=== PATIENT | male | born 1945 | race Caucasian/White ===

== ENCOUNTER 2018-09-09 18:45 | Emergency (ER) | payer MEDICARE, OTHER, SELFPAY ==
[2018-09-09 18:46] VITALS: BP 135/91; PULSE 100; RESP 18; TEMP 36.4; O2SAT 95; BMI 26.1
--- NOTE | 2018-09-09 20:29 | ED.VIS.UPPEX ---
History of Present Illness Chief Complaint: Laceration Informant: Patient Occurred: Today - JPTA Mechanism/Context: Incised Context: Sudden Onset Timing: Continuous Quality of Pain: - - sore Current Severity: Mild Maximum Severity: Mild Worsened by: palpation Relieved by: leaving alone Associated Symptoms: Negative for: Parasthesia, Weakness, Loss of Funtion Narrative: Significant bleeding from his laceration that he accidentally cut with a piece of slicer. RHD. Tetanus Immunization: <5 years - Past Medical History (1) Hyperlipidemia Status: Chronic (2) Arthritis Status: Chronic (3) BPH (benign prostatic hyperplasia) Status: Chronic Past Medical History - Allergies and Home Meds Allergies/Adverse Reactions: Allergies No Known Allergies Allergy (Verified 09/09/18 18:46) Primary Care Physician: Nelson Rea MD [Primary Care Provider] - Smoking Status: Never smoker Review of Systems Musculoskeletal: Reports: Extremity Pain. Denies: Swelling Skin: Reports: Wounds. Denies: Rash Neurological: Denies: Weakness, Numbness Physical Exam Vital Signs/Narrative: Vital Signs Temp Pulse Resp BP Pulse Ox 09/09/18 18:46 97.5 F L 100 18 135/91 H 95 Inital Vital Signs reviewed: Yes Left Finger: - - 2cm laceration to dorsal thumb at IPJ, flap into SQ tissues. arteriolar bleeding, able to be controlled w/ direct pressure.. Negative for: Limited ROM General: Well nourished, Well developed Head: Normocephalic, Atraumatic Skin: Normal color, No rash, Trauma - lac to left thumb -- see above Neurological: Alert, Oriented x3, Cranial nerves II-XII grossly intact, Normal Strength, Normal Sensation, Normal Gait Psychological: Normal affect, Normal Mood Diagnostic/Tx/Re-eval - Medical Decision Making No imaging necessary, there is no foreign body. Arteriolar bleeding was controlled with direct pressure until I was able to perform the repair with a turnicot uneventfully. Follow-up with PCP in 10-14 days or come to ER for suture removal. Procedures - Lacerations left thumb Length: 2 cm Depth: Sub Q Shape: Flap - curvilinear Prep: Sterile Conditions, Chlorhexadine Laceration Repair: Lidocaine - 1% plain; local only. irrigated under pressure. wound explored; no tendon/bone visible. Irrigated (ml): 30 Number of Sutures/Sandy: 4 Suture Information: Simple, 4-0 Comment: tournaquot used for bloodless field for exploration and repair. no complications. tolerated well. ED Disposition - Plan for ED Patient: Disposition: Home or Assisted Living Diagnosis: Laceration of left thumb Instructions: ED Laceration Hand Referrals: Nelson Rea MD [Primary Care Provider] - 10-14 Days suture removal
[2018-09-09 20:43] VITALS: BP 135/91; PULSE 100; RESP 15; O2SAT 97
== END 2018-09-09 20:45 | disposition home or self-care (01) ==
PROVIDERS: Emergency Provider Emergency Medicine; Family Provider Internal Medicine; PCP Internal Medicine
DX: S61.012A Laceration without foreign body of left thumb without damage to nail, initial encounter (principal); W26.8XXA Contact with other sharp object(s), not elsewhere classified, initial encounter; Y93.9 Activity, unspecified; Y92.9 Unspecified place or not applicable; E78.5 Hyperlipidemia, unspecified; N40.0 Benign prostatic hyperplasia without lower urinary tract symptoms; M19.90 Unspecified osteoarthritis, unspecified site; Z79.899 Other long term (current) drug therapy
CPT/HCPCS: 12001; 99282

== ENCOUNTER 2021-02-28 15:15 | Emergency (ER) | payer MEDICARE, OTHER, SELFPAY ==
[2021-02-28 15:15] VITALS: BP 164/97; PULSE 106; RESP 16; TEMP 36.6; O2SAT 99; BMI 24.0
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
== END 2021-02-28 16:32 | disposition home or self-care (01) ==
PROVIDERS: Emergency Provider Emergency Medicine; PCP Internal Medicine
DX: S92.402A Displaced unspecified fracture of left great toe, initial encounter for closed fracture (principal); E78.5 Hyperlipidemia, unspecified; M19.90 Unspecified osteoarthritis, unspecified site; X58.XXXA Exposure to other specified factors, initial encounter; Z79.1 Long term (current) use of non-steroidal anti-inflammatories (NSAID); Z79.899 Other long term (current) drug therapy
CPT/HCPCS: 73630; 99283

== ENCOUNTER → 2024-02-15 | Outpatient (CLI) | payer MEDICARE, OTHER, SELFPAY ==
--- OUTSIDE RECORDS SUMMARY | 2024-02-15 19:54 | XMS RPT_ITS | CCD ---
Author Organization [facility] Care Team Providers Care Boat Builder Name Role Phone Álvaro GEIGER, Nelson Muro Primary Care Provider [phone] NELSON REA Referring Unavailable ÁLVARO, NELSON Muro Primary Care Unavailable Álvaro GEIGER, Nelson Muro Primary Care Provider [phone] Álvaro GEIGER, Nelson Muro Primary Care Provider [phone] LUPE FORTUNE Attending Unavailable LUPE FORTUNE Referring Unavailable ÁLVARO, NELSON Muro Primary Care Unavailable LUPE FORTUNE Attending Unavailable LUPE FORTUNE Referring Unavailable REA, NELSON Muro Primary Care Unavailable ROBERTO CARLOS GODWIN Attending Unavail able LUPE OFRTUNE Referring Unavailable REA, NELSON Muro Primary Care Unavailable LUPE FORTUNE Attending Unavailable LUPE FORTUNE Referring Unavailable REA, NELSON Muro Primary Care Unavailable VAISHALI NOVAK Attending Unavailable REA, NELSON Muro Primary Care Unavailable VAISHALI NOVAK Attending Unavailable ÁLVARO, NELSON Muro Primary Care Unavailable REA, NELSON Muro Referring Unavailable REA, NELSON Muro Primary Care Unavailable VAISHALI NOVAK Attending Unavailable ÁLVARO, NELSON Muro Primary Care Unavailable REA, LALA Referring Unavailable REA, NELSON Muro Primary Care Unavailable REA, NELSON Muro Attending Unavailable ÁLVARO, NELSON Muro Primary Care Unavailable VAISHALI NOVAK Referring Unavailable REA, NELSON Muro Primary Care Unavailable KIMBERLEY HAWLEY Attending Unavailable REA, NELSON Muro Primary Care Unavailable KIMBERLEY HAWLEY Referring Unavailable REA, LALA Primary Care Unavailable VAISHALI NOVAK Attending Unavailable ÁLVARO, NELSON Muro Primary Care Unavailable Allergies Allergy Classification Reported Allergen(s) Allergy Type Date of Onset Reaction(s) Facility (20 sources) Environmental allergies [Other] Propensity to adverse reactions 9 [facility] (3 sources) OTHER; Translations: [OTHER] Propensity to adverse reactions (disorder) 9 [facility] Other [place] [facility] (2 sources) House dust mite; Translations: [DUST MITES] Propensity to adverse reactions (disorder) 4 [facility] Medications Current Medications Medication Drug Class(es) Dates Sig (Normalized) Sig (Original) alendronic acid 70 mg oral tablet (19 sources) Bisphosphonate Start: 02-19-2023 take 1 tablet by mouth every week alendronate (FOSAMAX) 70 mg tablet Indications: Age related osteoporosis, unspecified pathological fracture presence Take 1 tablet by mouth one time a week. Take with a full glass of water, on an empty stomach; do NOT lie down for 30minutes. 12 tablet 3 02/19/2023 Active Comment on above: Take 1 tablet by jayla th one time a week. Take with a full glass of water, on an empty stomach; do NOT lie down for 30minutes. ascorbic acid 1000 mg oral tablet (20 sources) Vitamin C Start: 02-17-2011 take 1 tablet by mouth once daily Ascorbic Acid 1,000 mg tablet Take 1 tablet by mouth once daily. 0 02/17/2011 Active Comment on above: Take 1 tablet by jayla th once daily. atorvastatin 20 mg oral tablet (20 sources) HMG-CoA Reductase Inhibitor Start: 06-22-2023 take 1 tablet by mouth once daily at bedtime for hyperlipidemia atorvastatin (LIPITOR) 20 mg tablet Indications: Dyslipidemia Take 1 tablet by mouth daily at bedtime. For cholesterol. 90 tablet 3 06/22/2023 Active Start: 06-09-2021 End: 06-19-2023 take 1 tablet by mouth once daily at bedtime for hyperlipidemia atorvastatin (LIPITOR) 20 mg tablet Indications: Dyslipidemia Take 1 tablet by mouth daily at bedtime. For cholesterol. 90 tablet 3 05/19/2022 06/19/2023 Discontinued Comment on above: Take 1 tablet by jayla th daily at bedtime. For cholesterol. celecoxib 200 mg oral capsule (20 sources) Nonsteroidal Anti-inflammatory Drug Start: 4 End: take 1 capsule by mouth once daily celecoxib (CELEBREX) 200 mg capsule Indications: Degeneration of intervertebral disc of lumbosacral region Take 1 capsule by mouth once daily. 30 capsule 3 09/08/2023 Active Start: 11-08-2022 End: 01-30-2023 take 1 capsule by mouth once daily celecoxib (CELEBREX) 200 mg capsule Indications: Chronic bilateral low back pain with bilateral sciatica Take 1 capsule by mouth once daily. 30 capsule 2 01/31/2023 Active Start: 10-23-2015 End: 11-06-2022 take 1 capsule by mouth once daily celecoxib (CELEBREX) 200 mg capsule Indications: Chronic bilateral low back pain with bilateral sciatica Take 1 capsule by mouth once daily. 30 capsule 0 10/07/2022 11/06/2022 Active Comment on above: Take 1 capsule by mo ut once daily. gabapentin 300 mg oral capsule (20 sources) Anti-epileptic Agent Start: 3 End: 5 take 1 capsule by mouth twice daily gabapentin (NEURONTIN) 300 mg capsule Indications: Degeneration of intervertebral disc of lumbosacral region Take 1 capsule by mouth two times a day for 120 days. 60 capsule 3 09/08/2023 Active Start: 05-23-2019 End: 06-15-2022 take 1 capsule by mouth three times daily gabapentin (NEURONTIN) 300 mg capsule Indications: Chronic bilateral low back pain with bilateral sciatica Take 1 capsule by mouth three times daily for 120 days. 90 capsule 3 01/04/2022 06/15/2022 Discontinued Comment on above: Take 1 capsule by mo ut twice daily. Per Pain Management Take 1 capsule by mo ut three times daily for 120 days. Take 1 capsule by mo ut twice daily. Take 1 capsule by mo ut two times a day. latanoprost 0.05 mg/ml ophthalmic solution (20 sources) Prostaglandin Analog take 1 drop(s) into the eye(s) once daily at bedtime latanoprost, PF, 0.005 % drop Use 1 Drop in eyes daily at bedtime. Active latanoprost, PF, 0.005 % drop Use in eyes. 0 Active Comment on above: Use in eyes. Use 1 Drop in eyes d aily at bedtime. losartan potassium 50 mg oral tablet (20 sources) Angiotensin 2 Receptor Sherin Start: 4 End: 4 take 1 tablet by mouth once daily losartan (COZAAR) 50 mg tablet Indications: Primary hypertension Take 1 tablet by mouth once daily. 90 tablet 1 10/31/2023 Active Start: 02-14-2023 End: 10-17-2023 take 1 tablet by mouth once daily losartan (COZAAR) 25 mg tablet Indications: Primary hypertension Take 1 tablet by mouth once daily. 90 tablet 3 02/14/2023 10/17/2023 Discontinued Comment on above: Take 1 tablet by jayla once daily. melatonin 10 mg oral capsule (20 sources) take 1 capsule by mouth every twenty-four hours as needed melatonin 10 mg cap Take 1 capsule by mouth at bedtime as needed. Active Comment on above: Take 1 capsule by mo [facility] at bedtime as needed. omeprazole 20 mg delayed release oral tablet (20 sources) Proton Pump Inhibitor Start: 06-05-19 take 1 tablet by mouth once daily at bedtime Omeprazole Magnesium (PRILOSEC OTC) 20 mg tablet Indications: Gastroesophageal reflux disease, unspecified whether esophagitis present Take 1 tablet by mouth daily at bedtime. 1/2 hr before meal. 06/05/2020 Active Comment on above: Take 1 tablet by jayla daily at bedtime. 1/2 hr before meal. tamsulosin hydrochloride 0.4 mg oral capsule (20 sources) alpha-Adrenergic Sherin Start: 01-01-20 take 1 capsule by mouth once daily tamsulosin (FLOMAX) 0.4 mg Take 1 capsule by mouth once daily. 90 capsule 3 01/01/2024 Active Start: 01-19-2021 End: 12-27-2023 take 1 capsule by mouth once daily tamsulosin (FLOMAX) 0.4 mg take 1 capsule by mouth once daily 90 capsule 3 12/28/2021 01/17/2023 Discontinued Comment on above: Take 1 capsule by mo [facility] once daily. take 1 capsule by mo [facility] once daily tiZANidine 4 mg oral tablet (20 sources) Central alpha-2 Adrenergic Agonist Start: End: take 1 tablet by mouth every eight hours as needed tiZANidine (ZANAFLEX) 4 mg tablet Indications: Degeneration of intervertebral disc of lumbosacral region Take 1 tablet by mouth every 8 hours as needed. 90 tablet 3 07/19/2023 Active Start: 04-25-2019 End: 05-16-2022 tiZANidine (ZANAFLEX) 4 mg t ablet tizanidine 4 mg tablet 0 04/25/2019 05/16/2022 Discontinued (Changing Therapy/Dosage Form) Comment on above: tizanidine 4 mg tabl et Take 1 tablet by jayla th every 8 hours as needed. Completed/Discontinued Medications Medication Drug Class(es) Dates Sig (Normalized) Sig (Original) 250 ml DOBUTamine 4 mg/ml injection (9 sources) beta-Adrenergic Agonist Start: 05-31-2022 End: 08-17-2022 DOBUTamine iv infusion 1,000 mg in D5W 250 mL (DOBUTREX) lisinopril 10 mg oral tablet (20 sources) Angiotensin Converting Enzyme Inhibitor Start: 06-15-2022 End: 02-14-2023 take 1 tablet by mouth once daily lisinopril (ZESTRIL) 10 mg tablet Take 1 tablet by mouth once daily. 90 tablet 1 08/12/2022 02/14/2023 Discontinued (Clinical Decision) Comment on above: Take 1 tablet by jayla th once daily. methocarbamol 750 mg oral tablet (20 sources) Muscle Relaxant Start: 11-04-2021 End: 09-13-2022 take 1 tablet by mouth three times daily as needed methocarbamol (ROBAXIN-750) 750 mg tablet Take 1 tablet by mouth three times daily as needed. 90 tablet 3 05/16/2022 08/15/2022 Discontinued Start: 06-09-2021 End: 11-04-2021 take 1 tablet by mouth three times daily methocarbamol (ROBAXIN) 500 mg tablet Indications: Cauda equina syndrome with neurogenic bladder (HCC) Take 1 tablet by mouth three times daily. 0 06/09/2021 11/04/2021 Discontinued Comment on above: Take 1 tablet by jayla th three times daily. Take 1 tablet by jayla th three times daily as needed. perflutren lipid microspheres 1.3 mL in NaCl (PF) 0.9% 10 mL injection (DEFINITY) (13 sources) Start: 05-19-2022 End: 08-17-2022 perflutren lipid microspheres 1.3 mL in NaCl (PF) 0.9% 10 mL injection (DEFINITY) Start: 05-19-2022 End: 08-18-2023 perflutren lipid microsphere s 1.3 mL in NaCl (PF) 0.9% 10 mL injection (DEFINITY) 125 ml sodium chloride 9 mg/ ml prefilled syringe (13 sources) Start: 05-19-2022 End: 08-18-2023 sodium chloride 0.9 % (flush ) 10 mL (BD POSIFLUSH) Problems Active Problems Problem Classification Problem Date Documented Date Episodic/Chronic Cardiac dysrhythmias (1 source) Tachycardia; Translations: [Tachycardia, unspecified] Episodic Disorders of lipid metabolism (20 sources) Dyslipidemia; Translations: [Hyperlipidemia, unspecified] Onset: 05-23-2018 05-23-2018 Chronic Esophageal disorders (20 sources) Gastroesophageal reflux disease; Translations: [Gastro-esophageal reflux disease without esophagitis] Onset: 06-05-2020 06-05-2020 Chronic Essential hypertension (20 sources) Essential hypertension; Translations: [Essential (primary) hypertension] Onset: 06-15-2022 Chronic Glaucoma (1 source) Elevated right intraocular pressure; Translations: [Ocular hypertension, right eye] Chronic Heart valve disorders (20 sources) Aortic incompetence, non-rheumatic ; Translations: [Nonrheumatic aortic (valve) insufficiency] Onset: 06-02-2022 06-02-2022 Chronic Hyperplasia of prostate (20 sources) Benign prostatic hypertrophy with outflow obstruction; Translations: [Benign prostatic hyperplasia with lower urinary tract symptoms] Onset: 09-20-2007 10-23-2015 Chronic Osteoarthritis (20 sources) Arthritis; Translations: [Unspecified osteoarthritis, unspecified site] Onset: 09-21-2021 09-21-2021 Chronic Osteoporosis (20 sources) Osteoporosis; Translations: [Age-related osteoporosis without current pathological fracture] Onset: 04-25-2019 09-21-2021 Chronic Other and ill-defined heart disease (3 sources) Left ventricular hypertrophy; Translations: [Cardiomegaly] Chronic Other and ill-defined heart disease (1 source) Cardiomegaly; Translations: [LVH (left ventricular hypertrophy)] Onset: 05-31-2022 Chronic Other lower respiratory disease (3 sources) Dyspnea on exertion; Translations: [Other forms of dyspnea] Episodic Other lower respiratory disease (1 source) Other forms of dyspnea; Translations: [ASHFORD (dyspnea on exertion)] Onset: 05-31-2022 Episodic Other upper respiratory disease (20 sources) Allergic rhinitis; Translations: [Allergic rhinitis, unspecified] Onset: 03-07-2012 03-07-2012 Chronic Residual codes; unclassified (1 source) Sleep apnea; Translations: [Sleep apnea, unspecified] 01-16-2024 Chronic Residual codes; unclassified (1 source) Sleep apnea, unspecified; Translations: [Sleep apnea, unspecified type] Onset: 01-25-2024 Chronic Spondylosis; intervertebral disc disorders; other back problems (20 sources) Degeneration of lumbosacral intervertebral disc; Translations: [Other intervertebral disc degeneration, lumbosacral region] Onset: 04-25-2019 09-21-2021 Chronic Unclassified (1 source) Degeneration of intervertebral disc of lumbosacral region with discogenic back pain; Translations: [Degeneration of intervertebral disc of lumbosacral region with discogenic back pain] Onset: 11-08-2021 Past or Other Problems Problem Classification Problem Date Documented Da te Episodic/Chronic Allergic reactions (15 sources) Radiation-induced dermatosis; Translations: [Other skin changes due to chronic exposure to nonionizing radiation] Onset: 12-31-2007 Resolved: 11-30-2016 11-30-2016 Episodic Diabetes mellitus without complication (20 sources) Impaired fasting glycemia; Translations: [Impaired fasting glucose] Onset: 05-23-2019 05-23-2019 Episodic Genitourinary symptoms and ill-defined conditions (15 sources) Retention of urine; Translations: [Retention of urine, unspecified] Onset: 02-17-2011 Resolved: 11-30-2016 11-30-2016 Episodic Neoplasms of unspecified nature or uncertain behavior (15 sources) Neoplasm of uncertain behavior of skin; Translations: [Neoplasm of uncertain behavior of skin] Onset: 12-31-2007 Resolved: 03-08-2012 03-08-2012 Episodic Other aftercare (20 sources) Long-term current use of drug therapy; Translations: [Other mcc (current) drug therapy] Onset: 05-06-2019 09-21-2021 Episodic Other and unspecified benign neoplasm (15 sources) Benign neoplasm of skin of face; Translations: [Other benign neoplasm of skin of unspecified part of face] Onset: 12-31-2007 Resolved: 11-30-2016 11-30-2016 Episodic Other circulatory disease (20 sources) Elevated blood pressure; Translations: [Elevated blood-pressure reading, without diagnosis of hypertension] Onset: 02-08-2018 05-23-2019 Episodic Other diseases of bladder and urethra (15 sources) Bladder neck obstruction; Translations: [Bladder-neck obstruction] Onset: 09-20-2007 Resolved: 03-08-2012 03-08-2012 Chronic Other diseases of kidney and ureters (1 source) Other obstructive and reflux uropathy; Translations: [BPH with obstruction/lower urinary tract symptoms] Onset: 10-23-2015 Episodic Other diseases of veins and lymphatics (15 sources) Varicocele; Translations: [Scrotal varices] Onset: 09-11-2008 Resolved: 03-08-2012 03-08-2012 Episodic Other fractures (20 sources) Fracture of lumbar spine and/or pelvis; Translations: [Fracture of unspecified parts of lumbosacral spine and pelvis, initial encounter for closed fracture] Onset: 04-25-2019 09-21-2021 Episodic Other fractures (20 sources) Closed fracture lumbar vertebra, wedge ; Translations: [Wedge compression fracture of second lumbar vertebra, initial encounter for closed fracture] Onset: 04-25-2019 09-21-2021 Episodic Other fractures (1 source) Fracture of unspecified parts of lumbosacral spine and pelvis, initial encounter for closed fracture; Translations: [Fracture of unspecified parts of lumbosacral spine and pelvis, initial encounter for closed fracture (HCC)] Onset: 11-08-2021 Episodic Other fractures (2 sources) Wedge compression fracture of second lumbar vertebra, initial encounter for closed fracture; Translations: [Wedge compression fracture of second lumbar vertebra, initial encounter for closed fracture (HCC)] Onset: 11-08-2021 Episodic Other injuries and conditions due to external causes (20 sources) History of spinal cord injury; Translations: [Personal history of other (healed) physical injury and trauma] Onset: 10-22-2014 10-22-2014 Episodic Other lower respiratory disease (20 sources) Chronic cough; Translations: [Chronic cough] Onset: 02-14-2023 02-14-2023 Episodic Other screening for suspected conditions (not mental disorders or infectious disease) (20 sources) Raised prostate specific antigen; Translations: [Elevated prostate specific antigen [PSA]] Onset: 05-23-2019 05-23-2019 Episodic Other skin disorders (20 sources) Actinic keratosis; Translations: [Actinic keratosis] Onset: 06-09-2021 06-09-2021 Episodic Paralysis (20 sources) Cauda equina syndrome with cord bladder; Translations: [Cauda equina syndrome] Onset: 03-19-2007 Resolved: 08-17-2022 03-19-2007 Chronic Spondylosis; intervertebral disc disorders; other back problems (20 sources) Chronic back pain ; Translations: [Dorsalgia, unspecified] Onset: 03-08-2012 04-19-2021 Episodic Results Test Name Value Interpretation Reference Range Facility [facility] 02-09-2024 CNPN Telephone (INTMWS) TULIO,MARTY Ceballos ([id number]) 1945 M Date Time Provider Department 02/09/24 NELSON REASHAWNEE During your visit today, we recorded the following information about you: Karma Hernandez LPN 02/09/2024 8:25 AM Signed ----- Message from Vaishali Novak APRN.DOMINGA sent at 02/09/2024 6:21 AM EDT ----- Please let the patient know the home sleep study indicated sleep apnea but the specialist recommends in lab sleep study for further evaluation CHRIS Sellers Laurie Lynn, LPN 02/09/2024 8:26 AM Signed Before calling pt, please put in orders for the sleep study. MINI Christianson Naz M, APRN.CNP 02/09/2024 9:13 AM Signed He may want it done locally at [facility], will wait to put orders in for this reason Vaishali Novak APRN.Mikel Camarena MA 02/09/2024 9:41 AM Signed Left message to call office. 02/09/2024 9:41 AM Terri Parkinson RN 02/12/2024 11:23 AM Signed Patient states yes, he would like sleep study done locally at [facility]. Please place order and send to [facility]. Thank you. Meagan Mcleod LPN 02/12/2024 4:34 PM Signed Sleep study order and pertinent information faxed to [facility] per pt request. Meagan Mcleod LPN Allergies As of Date: 02/09/2024 Noted Allergy Reaction DUST MITES 07/19/2023 16 - Unknown Comments: Also cockroaches. Date Reviewed: 01/30/2024 Reviewed by: Lupe Fortune PA-C - Fully Assessed Prescriptions as of 02/12/2024 - tamsulosin (FLOMAX) 0.4 mg Take 1 capsule by mouth once daily. - losartan (COZAAR) 50 mg tablet Take 1 tablet by mouth once daily. - celecoxib (CELEBREX) 200 mg capsule Take 1 capsule by mouth once daily. - gabapentin (NEURONTIN) 300 mg capsule Take 1 capsule by mouth two times a day for 120 days. - tiZANidine (ZANAFLEX) 4 mg tablet Take 1 tablet by mouth every 8 hours as needed. - atorvastatin (LIPITOR) 20 mg tablet Take 1 tablet by mouth daily at bedtime. For cholesterol. - alendronate (FOSAMAX) 70 mg tablet Take 1 tablet by mouth one time a week. Take with a full glass of water, on an empty stomach; do NOT lie down for 30minutes. - latanoprost, PF, 0.005 % drop Use 1 Drop in eyes daily at bedtime. - Omeprazole Magnesium (PRILOSEC OTC) 20 mg tablet Take 1 tablet by mouth daily at bedtime. 1/2 hr before meal. - melatonin 10 mg cap Take 1 capsule by mouth at bedtime as needed. - Ascorbic Acid 1,000 mg tablet Take 1 tablet by mouth once daily. 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] 09/11/2008 03/08/2012 Urinary retention [R33.9] 02/17/2011 11/30/2016 Allergic rhinitis [J30.9] 03/07/2012 Chronic back pain [M54.9, G89.29] 03/08/2012 History of spinal cord injury, lumbar, left leg*10/22/2014 Dyslipidemia [E78.5] 05/23/2018 Impaired fasting glucose [R73.01] 05/23/2019 Elevated PSA [R97.20] 05/23/2019 Gastroesophageal reflux disease [K21.9] 06/05/2020 Actinic keratosis due to exposure to sunlight [*06/09/2021 Degeneration of intervertebral disc of lumbosac*04/25/2019 Pelvic Fracture NOS - closed - [facility] [S32.9XXA] 04/25/2019 Osteoporosis [M81.0] 04/25/2019 Other mcc (current) drug therapy [Z79.899]05/06/2019 Fracture lumbar vertebra - closed - [facility] [S32.02*04/25/2019 Hyperlipidemia [E78.5] 09/21/2021 Arthritis [M19.90] 09/21/2021 Nonrheumatic aortic valve insufficiency [I35.1] 06/02/2022 Primary hypertension [I10] 06/15/2022 Chronic cough [R05.3] 02/14/2023 Encounter Status:Closed by MEAGAN MCLEOD on 02/12/24 Normal [facility] CNOVon 01-30-2024 CNOV Office Visit (PAMMJK ) MARTY ANTUNEZ ([id number]) 1945 M Date Time Provider Department 01/30/24 10:00 AM LUPE FORTUNE During your visit today, we recorded the following information about you: Pulse Respiration Blood pressure 79/minute 16/minute 154/80 Lupe Fortune PA-C 01/30/2024 10:17 AM Signed This note was created using Gema Touch. Subjective Marty Antunez is a 78 year old male. The patient primarily being seen for back pain - [facility] Patient was last seen on: 10/23/23 At that time, the treatment plan was: see notes Current Meds: gabapentin - two nights ago, celebrex - yesterday, tizanidine - prn Efficacy: help Side effects: denies TENS unit: didn't help How often used: Benefit: Physical Therapy: years ago, exercises at home on his own Last UDS: not on narcotics Last injection: OARRS reviewed At the present time, the patient reports benefit with his present analgesic therapy. He denies any adverse effects. Since his previous visit, he denies any hospitalizations or ER visits. Otherwise, he has nothing further to discuss at this time. 01/23/2024 01/30/2024 INTAKE PAIN ASSESSMENT Are you having pain associated with your visit today? No Yes, Provider notified Pain Scales Verbal (Numeric Rating or Visual Analog Scale) Pain Level 3 Pain Location Back Description Aching Duration Amount of Time 44 Duration Units Years Frequency Continuous Intervention/Comfort measure Heat;Medication;Positioning Back Pain Pertinent negatives include no fever. 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 Spinal cord injury 08/16/1979 Fall at work, left leg atrophy Urinary retention 02/17/2011 PAST SURGICAL HISTORY Procedure Laterality Date COLONOSCOPY FLX DX W/COLLJ SPEC WHEN PFRMD 11/2003 Colonoscopy COLONOSCOPY FLX DX W/COLLJ SPEC WHEN PFRMD 02/23/2012 Colonoscopy COLONOSCOPY FLX DX W/COLLJ SPEC WHEN PFRMD 05/04/2018 Colonoscopy NEUROPLASTY AND/TRANSPOS MEDIAN NRV CARPAL TUNNE 2009 Carpal tunnel decomp, LEFT NEUROPLASTY AND/TRANSPOSITION ULNAR NERVE WRIST 2009 LEFT OPEN REPAIR OF ROTATOR CUFF ACUTE 1992 Rotator cuff repair, LEFT TONSILLECTOMY AND ADENOIDECTOMY Social History Tobacco Use Smoking status: Never Smokeless tobacco: Never Vaping Use Vaping status: Never Used Substance Use Topics Alcohol use: Yes Comment: Socially Drug use: Never Review of Systems Constitutional: Negative for fever and unexpected weight change. Musculoskeletal: Positive for back pain. +back pain, joint pain, numbness, tingling, muscle cramps/weakness, stiffness, arthritis, sciatica, and leg pain with exertion. Objective BP 154/80 (BP Site: Left Arm, BP Position: Sitting) Pulse 79 Resp 16 SpO2 99% Physical Exam Vitals and nursing note reviewed. Constitutional: Appearance: Normal appearance. He is well-developed, well-groomed and normal weight. HENT: Head: Normocephalic and atraumatic. Right Ear: Hearing normal. Left Ear: Hearing normal. Eyes: Conjunctiva/sclera: Conjunctivae normal. Musculoskeletal: Comments: He is using his cane for assistance with his gait. There is tenderness to palpation in the lumbar region with spasms in the trapezius, paraspinal, and latissimus dorsi muscles. Strength is 4-5/5 in the LLE. He has atrophy noted in the LLE. Sensation is decreased in the lateral LLE, worse around the proximal lateral thigh. SLR is negative. He has a brace present on the left ankle. Neurological: Mental Status: He is alert and oriented to person, place, and time. Psychiatric: Attention and Perception: Attention and perception normal. Mood and Affect: Mood and affect normal. Speech: Speech normal. Behavior: Behavior normal. Behavior is cooperative. Thought Content: Thought content normal. Judgment: Judgment normal. Assessment and Plan ASSESSMENT/PLAN: 1. Degeneration of intervertebral disc of lumbosacral region with discogenic back pain - ICD9: 722.52, ICD10: M51.370 (primary diagnosis) 2. Pelvic Fracture NOS - closed - [facility] - ICD9: [id number], ICD10: S32.9XXA 3. Fracture lumbar vertebra - closed - [facility] - ICD9: 805.4, ICD10: S32.020A PLAN: The OARRS report has been reviewed and is consistent with the patients medical history and medication intake. Continue with the gabapentin, celecoxib, and tizandine Continue with core strengthening and range o (more content not included)... Normal [facility] POLYSOMNOGRAM (PSG)/HOME SLE EP APNEA TEST (HSAT)on 01-27-2024 POLYSOMNOGRAM (PSG)/HOME SLEEP APNEA TEST (HSAT) [facility] at [address], [address] [address] ; Home Sleep Apnea Test (HSAT) Study Report Name: MARTY ANTUNEZ Date of Study: 01/27/2024 [facility]#: [id number] Age: 78 (: 1945) ESS: 06/17 Neck Circ. (cm): 37.0 Height (cm): 172.0 Weight (kg): 70.0 BMI: 23.7 Referring Provider: VAISHALI NOVAK Mailcode: Sleep history: The patient is a 78 year old male with a history of hypertension. The patient is here for assessment of obstructive sleep apnea. Pertinent medical history: Depression, GERD, Hypertension Medications: Alendronate, Atorvastatin, Celecoxib, Tamsulosin, Tizanidine, Losartan, Omeprazole, Melatonin Sleep procedure: PSG unattended Type III, minimum of 4 parameters ([id number]) Procedure: This study was performed using a Type III ambulatory PSG device and was unattended. The patient was instructed on proper use of the device by a registered dairy manufacturing technologist. The monitored parameters included heart rate, oxygen saturation, continuous airflow with thermistor and nasal pressure transducer, snoring via nasal pressure transducer, chest and abdominal effort, and body position. VIKTORIA definition: Respiratory event index (VIKTORIA), calculated as respiratory events x 60 / TRT (total recording time in minutes). Note: the apnea hypopnea index has been replaced by the respiratory event index for home sleep apnea test. Since the home sleep apnea test does not measure sleep, the VIKTORIA is most accurate index of respiratory events. The VIKTORIA is a surrogate of the AHI per the AASM Manual for Scoring of Sleep and Associated Events version 3. Apnea definition: The peak signal excursions drop by >90% of pre-event baseline using an oronasal thermal sensor (diagnostic study), PAP device flow (titration study) or an alternative apnea sensor (diagnostic study). The duration of the >90% drop in signal excursion is >=10 seconds. Hypopnea definition: The peak signal excursions drop by >= 30% of pre-event baseline using nasal pressure (diagnostic study), PAP device flow (titration study) or an alternative hypopnea sensor (diagnostic study). The duration of the >= 30% drop in signal excursion is >=10 seconds. There is a greater than or equal to 4% oxygen desaturation from pre-event baseline. RESPIRATORY DATA: The study started at 00:38:57 and ended at 07:58:30 and the total recording time was 439 minutes. By convention, sleep is assumed for the whole recording. Snoring was noted. There was a total of 26 respiratory events. Of these events, the total number of apneas was 3 (2 obstructive, 0 mixed, and 1 central (3.8%)) and 23 hypopneas. The central apnea index (DRAKE) was 0.1. The respiratory event index (VIKTORIA) was 3.5 events per hour of study time. The mean oxygen saturation during the study was 94.0%, with a minimum oxygen saturation of 83.0%. The patient spent 18.0 minutes at oxygen saturation measured less than 90% (4.1% of recording time) and 10.7 minutes at oxygen saturation measured at or less than 88% (2.4% of recording time). Time VIKTORIA/AHI Supine 150.5 min 5.6 Off-Supine 289.0 min 2.5 Total 439.5 min 3.5 ECG DATA: The average heart rate was 66 bpm with a range of 58 bpm to 97 bpm. ICSD DIAGNOSIS: Primary Snoring [R06.83] Sleep Disorder, Unspecified [G47.9] IMPRESSION/RECOMMENDATIONS: 1. This study neither confirms nor refutes a diagnosis of obstructive sleep apnea as HSAT does not measure certain types of respiratory events that can only be measured on an in-laboratory polysomnogram. Of note, VIKTORIA was in mild range when supine. 2. Recommend an in-laboratory polysomnogram. INTERPRETING PHYSICIAN: Kacey Ulloa MD [facility] I attest that I have performed epoch by epoch review of the entire raw data and find this study to be technically adequate. Report Digitally Signed By: KACEY ULLOA MD (02/08/2024 2:50:50 PM) [INVALID SIGNATURE] KACEY ULLOA MD (02/08/2024 2:51:16 PM) Normal [facility] CNOVon 01-23-2024 CNOV Office Visit (UROLWS ) MARTY ANTUNEZ ([id number]) 1945 M Date Time Provider Department 01/23/24 10:30 AM KIMBERLEY HAWLEY UROLWS During your visit today, we recorded the following information about you: Temperature Pulse Respiration Blood pressure 98.1 degrees 86/minute 14/minute 144/76 Weight 71.7 kg Zac JessicaMINI le 01/23/2024 11:27 AM Signed Verified name and date of . CC Post Void Residual HPI: Marty Antunez is a 78 year old male. The patient is here now for an appointment with MARIANO Lopez MT, PA-COV. Procedure: Explained procedure to patient and verbalizes understanding. Performed a PVR. Patient urinated and instructed to empty bladder as much as possible just prior to having PVR done using bladder ultrasound scanner. Results of scan: 43 mL The patient tolerated the procedure well. Plan: Appointment with Kimberley. Kimberley Hawley PA-C 01/23/2024 11:27 AM Signed [facility] ESTABLISHED PATIENT CLINIC NOTE Some elements copied from his previous note, which have been updated where appropriate, and all reflect current medical decision making from date of this visit. NAME: Marty Antunez CHIEF COMPLAINT: BPH PSA Follow up HISTORY OF PRESENT ILLNESS: Marty Antunez is a 78 year old Male with BPH w/LUTS presenting for annual follow up The patient reports doing well , PVR- 43 ml PSA -3.01 mild increase only Overall doing well no new Co's LABS: Hematocrit (%) Date Value 07/17/2023 38.7 06/17/2022 38.8 06/15/2021 43.1 12/02/2016 44.4 10/22/2013 43.8 PSA (ng/mL) Date Value 01/18/2024 3.01 01/11/2023 2.53 01/14/2022 2.58 01/19/2021 2.69 04/04/2020 2.54 04/04/2019 2.82 01/02/2014 1.93 No results found for: TESTOST MEDICATIONS: tamsulosin (FLOMAX) 0.4 mg Take 1 capsule by mouth once daily. losartan (COZAAR) 50 mg tablet Take 1 tablet by mouth once daily. celecoxib (CELEBREX) 200 mg capsule Take 1 capsule by mouth once daily. gabapentin (NEURONTIN) 300 mg capsule Take 1 capsule by mouth two times a day for 120 days. tiZANidine (ZANAFLEX) 4 mg tablet Take 1 tablet by mouth every 8 hours as needed. atorvastatin (LIPITOR) 20 mg tablet Take 1 tablet by mouth daily at bedtime. For cholesterol. alendronate (FOSAMAX) 70 mg tablet Take 1 tablet by mouth one time a week. Take with a full glass of water, on an empty stomach; do NOT lie down for 30minutes. latanoprost, PF, 0.005 % drop Use 1 Drop in eyes daily at bedtime. Omeprazole Magnesium (PRILOSEC OTC) 20 mg tablet Take 1 tablet by mouth daily at bedtime. 1/2 hr before meal. melatonin 10 mg cap Take 1 capsule by mouth at bedtime as needed. Ascorbic Acid 1,000 mg tablet Take 1 tablet by mouth once daily. PAST MEDICAL HISTORY: PAST MEDICAL HISTORY Diagnosis Date BPH with obstruction/lower urinary tract symptoms 09/20/2007 Chronic back pain 03/08/2012 DDD (degenerative disc disease), lumbar Depression Diverticulosis of colon (without mention of hemorrhage) History of multiple trauma 08/16/1979 work related, [facility] History of spinal cord injury, lumbar, left leg atrophy and paresis. 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 All other systems reviewed and are negative PHYSICAL EXAMINATION: Blood pressure 144/76, pulse 86, temperature 36.7 ?C (98.1 ?F), temperature source Temporal, resp. rate 14, weight 71.7 kg (158 lb), SpO2 98%. GENERAL: WNL nutrition, no deformities, healthy appearing PROBLEM LIST REVIEW: Yes LABS: Results for orders placed or performed in visit on 01/23/24 UA DIP, URINE (POC) Result Value Ref Range GLUCOSE UA (POCT) Negative Negative mg/dL BILIRUBIN UA (POCT) Negative Negative KETONE UA (POCT) Negative Negative mg/dL SPECIFIC GRAVITY UA (POCT) 1.020 1.005 - 1.030 HEMOGLOBIN/BLOOD UA (POCT) Negative Negative PH UA (POCT) 6.5 4.5 - 8.0 PROTEIN UA (POCT) Negative Negative mg/dL UROBILINOGEN UA (POCT) 0.2 Normal E.U./dL NITRITE UA (POCT) Negative Negative LEUKOCYTES UA (POCT) Negative Negative COLOR UA (POCT) Yellow CLARITY UA (POCT) Clear PVR 43 ml IMPRESSION/PLAN: 1. BPH with obstruction/lower urinary tract symptoms - ICD9: 600.01, 599.69, ICD10: N40.1, N13.8 > Refilled Flomax > PSA - 3.01 > 1 year Appt w/ BMARIANO Chan MT, PA-C with PSA prior Kimberley Hawley PA-C 01/23/2024 11:27 AM Signed > Flomax sent 01/01/2024 > PSA was 3.01 > PVR - 43 ml > 1 year Appt w/ BMARIANO Chan MT, PA-C with PSA prior Allergies As of Date: 01/23/2024 Noted Allergy Reactio (more content not included)... Normal [facility] UA DIP, URINE (POC)on 2023 BILIRUBIN UA (POCT) Negative Negative [facility] CLARITY UA (POCT) Clear [facility] COLOR UA (POCT) Yellow [facility] GLUCOSE UA (POCT) Negative Negative mg/dL [facility] Hemoglobin Ql (U) Negative Negative [facility] KETONE UA (POCT) Negative Negative mg/dL [facility] LEUKOCYTES UA (POCT) Negative Negative [facility] NITRITE UA (POCT) Negative Negative [facility] PH UA (POCT) 6.5 4.5 - 8.0 [facility] Protein Ql (U) Negative Negative mg/dL [facility] SPECIFIC GRAVITY UA (POCT) 1.020 1.005 - 1.030 [facility] UROBILINOGEN UA (POCT) 0.2 Normal E.U./dL [facility] Location:[facility], [address], [place], [place], [id number] [place] [address] POINT OF CARE [facility] Prostate specific Ag [Mass/Vol] 3.01 ng/mL High <2.60 [facility] Comment on above: Order Comment: Speci men Type: BLOOD SPECIMENOrdering Facility: [facility] Address: [address] [place] [address] Result Comment: Tota l PSA test methodology used is the Electrochemiluminescence Immunoassay by [employer]. Total PSA values by differing methodologies cannot be interchanged. For an individual patient, the significance of a PSA level should be interpreted in a broad clinical context, including age, race, family history, digital rectal exam, prostate size, results of prior testing (prostate biopsy, free PSA, PCA3), and use of 5-alpha reductase inhibitors. Considering the high incidence of asymptomatic cancer in the general population that may not pose an ultimate risk to a patient, the decision to recommend urological evaluation or prostate biopsy should be individualized after consideration of all these factors. REFERENCE: Sabas Wilson M.D., M.P.H., Irwin Marte M.D., Ph.D., Dorian Castañeda M.D., Jessica Adan, M.P.H., Fiorella Carreno Sc.Ronda. Effect of Verification Bias on Screening for Prostate Cancer by Measurement of Prostatic Specific Antigen. N Engl J Med 2003,349:335-42. Performed By: #### 2 [id number] ####[facility] [id number] [place] [address] [place] CNOVon 01-16-2024 CNOV Office Visit (INTMWS ) MARTY ANTUNEZ ([id number]) 1945 M Date Time Provider Department 01/16/24 10:40 AM VAISHALI NOVAK INTMWS During your visit today, we recorded the following information about you: Pulse Respiration Blood pressure Weight 79/minute 18/minute 136/82 72 kg Vaishali Novak, ELECTROENCEPHALOGRAPH TECHNICIAN.GENERAL FARM HAND 01/16/2024 11:13 AM Signed CC: Patient presents with: F/U 6 months HPI Marty Antunez is a 78 year old male who presents today for above. HTN-Medication changes:No Taking all medications as prescribed: Yes Side effects: No Home BP's: No Denies: headache, chest pain, palpitations, dyspnea, and peripheral edema. Last 3 Encounter BP Readings: Date: BP: 01/16/2024 168/90 11/14/2023 146/94 10/23/2023 160/81 GERD: Symptoms controlled with Prilosec. Denies heartburn/reflux, dysphagia, bloating, abdominal pain, black/bloody stools, vomiting, decreased appetite. His relish maker raised concerns about worsening glaucoma despite treatment with drops and normal pressures. He mentioned the possibility of sleep apnea as the cause. Denies snoring, un-refreshed sleep, insomnia, excessive daytime drowsiness. Review of Systems See HPI PAST MEDICAL HISTORY Diagnosis Date BPH with obstruction/lower urinary tract symptoms 09/20/2007 Chronic back pain 03/08/2012 DDD (degenerative disc disease), lumbar Depression Diverticulosis of colon (without mention of hemorrhage) History of multiple trauma 08/16/1979 work related, [facility] History of spinal cord injury, lumbar, left leg atrophy and paresis. 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 Spinal cord injury 08/16/1979 Fall at work, left leg atrophy Urinary retention 02/17/2011 PAST SURGICAL HISTORY Procedure Laterality Date COLONOSCOPY FLX DX W/COLLJ SPEC WHEN PFRMD 11/2003 Colonoscopy COLONOSCOPY FLX DX W/COLLJ SPEC WHEN PFRMD 02/23/2012 Colonoscopy COLONOSCOPY FLX DX W/COLLJ SPEC WHEN PFRMD 05/04/2018 Colonoscopy NEUROPLASTY AND/TRANSPOS MEDIAN NRV CARPAL TUNNE 2008 Carpal tunnel decomp, LEFT NEUROPLASTY AND/TRANSPOSITION ULNAR NERVE WRIST 2008 LEFT OPEN REPAIR OF ROTATOR CUFF ACUTE 1992 Rotator cuff repair, LEFT TONSILLECTOMY AND ADENOIDECTOMY ALLERGIES Dust Mites MEDICATIONS tamsulosin (FLOMAX) 0.4 mg Take 1 capsule by mouth once daily. losartan (COZAAR) 50 mg tablet Take 1 tablet by mouth once daily. celecoxib (CELEBREX) 200 mg capsule Take 1 capsule by mouth once daily. gabapentin (NEURONTIN) 300 mg capsule Take 1 capsule by mouth two times a day for 120 days. tiZANidine (ZANAFLEX) 4 mg tablet Take 1 tablet by mouth every 8 hours as needed. atorvastatin (LIPITOR) 20 mg tablet Take 1 tablet by mouth daily at bedtime. For cholesterol. alendronate (FOSAMAX) 70 mg tablet Take 1 tablet by mouth one time a week. Take with a full glass of water, on an empty stomach; do NOT lie down for 30minutes. latanoprost, PF, 0.005 % drop Use 1 Drop in eyes daily at bedtime. Omeprazole Magnesium (PRILOSEC OTC) 20 mg tablet Take 1 tablet by mouth daily at bedtime. 1/2 hr before meal. melatonin 10 mg cap Take 1 capsule by mouth at bedtime as needed. Ascorbic Acid 1,000 mg tablet Take 1 tablet by mouth once daily. FAMILY HISTORY Problem Relation Age of Onset Heart Mother CHF, dec. GI Mother GI bleed other (Other) Father Pulmonary fibrosis Colon Cancer Paternal Grandmother None Brother None Brother Social History Tobacco Use Smoking status: Never Smokeless tobacco: Never Vaping Use Vaping status: Never Used Substance Use Topics Alcohol use: Not Currently Drug use: Never BP 136/82 Pulse 79 Resp 18 Wt 72 kg (158 lb 11.7 oz) SpO2 97% BMI 24.14 kg/m? Physical Exam Vitals reviewed. Constitutional: Appearance: Normal appearance. Cardiovascular: Rate and Rhythm: Normal rate and regular rhythm. Pulses: Normal pulses. Heart sounds: Normal heart sounds. No murmur heard. Pulmonary: Effort: Pulmonary effort is normal. Breath sounds: Normal breath sounds. No wheezing, rhonchi or rales. Neurological: Mental Status: He is alert. Psychiatric: Mood and Affect: Mood normal. Health maintenance reviewed with patient: Depression Screening Never done Anxiety Screening Never done BP Controlled (<130/80) Never done Covid-19 Vaccine() due on 12/24/2023 DTaP,Tdap,Td Vaccine(1 - Tdap) due on 07/13/2024 Annual PCP Team Chronic Disease Visit due on 11/13/2024 Diabetes Screening due on 07/16/2026 Influenza Vaccine Completed RSV Vaccine Completed Hepatitis C Screening Completed Shingrix Vaccine Completed Pneumococcal Vaccine: 65+ Completed Colorectal Cancer Screening Discontinued Advance Directive Discussion Discontinued DATA REVIEWED: Most recen (more content not included)... Normal [facility] CNOVon 11-14-2023 CNOV Office Visit (INTMWS ) MARTY ANTUNEZ ([id number]) 1945 [place] Date Time Provider Department 11/14/23 9:00 AM VAISHALI NOVAK INTMWS During your visit today, we recorded the following information about you: Pulse Respiration Blood pressure 77/minute 18/minute 146/94 Mikel Rios MA 11/14/2023 9:17 AM Signed 11/14/2023: Home BP Cuff Validated. Home BP: 149/98 Office BP: 146/94 BP Tremaine Serial, Digital BP Readings, Taken 2 Minutes Apart, Average Readings: 150/78 Pulse: 75 Pts home readings: 11/12 126/77 ; 128/77 7/8 121/74 10/15 135/84 Reason for blood pressure check - Last BP elevated Patient is: Taking medication as prescribed Yes Took medication today No If no, date medication last taken evening Experiencing side effects No Recommendations Continue taking medications as prescribed, Follow recommended diet instructions, Continue recommended activity, and Avoid excessive salt Follow-up Yes Pt has been identified by name and birthdate: Yes Allergies reviewed: Yes Latex allergy: no. Medication - prescribed and OTC reviewed and updated: Yes Do you need any prescription refills prior to your next visit: No Health Maintenance: Reviewed and up to date Allergies As of Date: 11/14/2023 Noted Allergy Reaction DUST MITES 07/19/2023 16 - Unknown Comments: Also cockroaches. Date Reviewed: 11/14/2023 Reviewed by: Mikel Rios MA - Fully Assessed Reason for Visit: nurse visit - bp check [Other] Primary Visit Diagnosis:Primary hypertension [I10] Prescriptions as of 11/14/2023 - losartan (COZAAR) 50 mg tablet Take 1 tablet by mouth once daily. - celecoxib (CELEBREX) 200 mg capsule Take 1 capsule by mouth once daily. - gabapentin (NEURONTIN) 300 mg capsule Take 1 capsule by mouth two times a day for 120 days. - tiZANidine (ZANAFLEX) 4 mg tablet Take 1 tablet by mouth every 8 hours as needed. - atorvastatin (LIPITOR) 20 mg tablet Take 1 tablet by mouth daily at bedtime. For cholesterol. - alendronate (FOSAMAX) 70 mg tablet Take 1 tablet by mouth one time a week. Take with a full glass of water, on an empty stomach; do NOT lie down for 30minutes. - tamsulosin (FLOMAX) 0.4 mg Take 1 capsule by mouth once daily. - latanoprost, PF, 0.005 % drop Use 1 Drop in eyes daily at bedtime. - Omeprazole Magnesium (PRILOSEC OTC) 20 mg tablet Take 1 tablet by mouth daily at bedtime. 1/2 hr before meal. - melatonin 10 mg cap Take 1 capsule by mouth at bedtime as needed. - Ascorbic Acid 1,000 mg tablet Take 1 tablet by mouth once daily. Problem List As Of Date 11/14/2023 Noted Resolved Cauda equina syndrome with neurogenic bladder (*03/19/2007 08/17/2022 BPH with obstruction/lower urinary tract sympto*09/20/2007 Bladder neck obstruction [N32.0] 09/20/2007 03/08/2012 Neoplasm of uncertain behavior of skin [D48.5] 12/31/2007 03/08/2012 Benign neoplasm of skin of other and unspecifie*12/31/2007 11/30/2016 Other chronic dermatitis due to solar radiation*12/31/2007 11/30/2016 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] 09/11/2008 03/08/2012 Urinary retention [R33.9] 02/17/2011 11/30/2016 Allergic rhinitis [J30.9] 03/07/2012 Chronic back pain [M54.9, G89.29] 03/08/2012 History of spinal cord injury, lumbar, left leg*10/22/2014 Dyslipidemia [E78.5] 05/23/2018 Impaired fasting glucose [R73.01] 05/23/2019 Elevated PSA [R97.20] 05/23/2019 Gastroesophageal reflux disease [K21.9] 06/05/2020 Actinic keratosis due to exposure to sunlight [*06/09/2021 Degeneration of intervertebral disc of lumbosac*04/25/2019 Pelvic Fracture NOS - closed - [facility] [S32.9XXA] 04/25/2019 Osteoporosis [M81.0] 04/25/2019 Other mcc (current) drug therapy [Z79.899]05/06/2019 Fracture lumbar vertebra - closed - [facility] [S32.02*04/25/2019 Hyperlipidemia [E78.5] 09/21/2021 Arthritis [M19.90] 09/21/2021 Nonrheumatic aortic valve insufficiency [I35.1] 06/02/2022 Primary hypertension [I10] 06/15/2022 Chronic cough [R05.3] 02/14/2023 Encounter Status:Closed by MIKEL RIOS on 11/14/23 [facility] 11-14-2023 RIP Telephone (INTMWS) TULIO,MARTY Ceballos ([id number]) 1945 M Date Time Provider Department 11/14/23 VAISHALI NOVAK INTMWS During your visit today, we recorded the following information about you: Mikel Rios MA 11/14/2023 9:16 AM Signed 11/14/2023: Home BP Cuff Validated. Home BP: 149/98 Office BP: 146/94 BP Tremaine Serial, Digital BP Readings, Taken 2 Minutes Apart, Average Readings: 150/78 Pulse: 75 Pts home readings: 11/12 126/77 ; 128/77 10/29 121/74 10/15 135/84 Reason for blood pressure check - Last BP elevated Patient is: Taking medication as prescribed Yes Took medication today No If no, date medication last taken evening Experiencing side effects No Recommendations Continue taking medications as prescribed, Follow recommended diet instructions, Continue recommended activity, and Avoid excessive salt Follow-up Yes Pt has been identified by name and birthdate: Yes Allergies reviewed: Yes Latex allergy: no. Medication - prescribed and OTC reviewed and updated: Yes Do you need any prescription refills prior to your next visit: No Health Maintenance: Reviewed and up to date Vaishali Novak, [place] 11/14/2023 1:21 PM Signed Home BP readings at goal, no medication changes Vaishali Novak APRN.GENERAL FARM HAND Mikel Rios MA 11/14/2023 1:24 PM Signed Left message to call office. 11/14/2023 1:24 PM Tammie Rush LPN 11/14/2023 3:18 PM Signed Pt notified of provider message regarding bp readings. Tammie Rush LPN Allergies As of Date: 11/14/2023 Noted Allergy Reaction DUST MITES 07/19/2023 16 - Unknown Comments: Also cockroaches. Date Reviewed: 11/14/2023 Reviewed by: Mikel Rios MA - Fully Assessed Reason for Visit: BP Check [142] Prescriptions as of 11/14/2023 - losartan (COZAAR) 50 mg tablet Take 1 tablet by mouth once daily. - celecoxib (CELEBREX) 200 mg capsule Take 1 capsule by mouth once daily. - gabapentin (NEURONTIN) 300 mg capsule Take 1 capsule by mouth two times a day for 120 days. - tiZANidine (ZANAFLEX) 4 mg tablet Take 1 tablet by mouth every 8 hours as needed. - atorvastatin (LIPITOR) 20 mg tablet Take 1 tablet by mouth daily at bedtime. For cholesterol. - alendronate (FOSAMAX) 70 mg tablet Take 1 tablet by mouth one time a week. Take with a full glass of water, on an empty stomach; do NOT lie down for 30minutes. - tamsulosin (FLOMAX) 0.4 mg Take 1 capsule by mouth once daily. - latanoprost, PF, 0.005 % drop Use 1 Drop in eyes daily at bedtime. - Omeprazole Magnesium (PRILOSEC OTC) 20 mg tablet Take 1 tablet by mouth daily at bedtime. 1/2 hr before meal. - melatonin 10 mg cap Take 1 capsule by mouth at bedtime as needed. - Ascorbic Acid 1,000 mg tablet Take 1 tablet by mouth once daily. Problem List As Of Date 11/14/2023 Noted Resolved Cauda equina syndrome with neurogenic bladder (*03/19/2007 08/17/2022 BPH with obstruction/lower urinary tract sympto*09/20/2007 Bladder neck obstruction [N32.0] 09/20/2007 03/08/2012 Neoplasm of uncertain behavior of skin [D48.5] 12/31/2007 03/08/2012 Benign neoplasm of skin of other and unspecifie*12/31/2007 11/30/2016 Other chronic dermatitis due to solar radiation*12/31/2007 11/30/2016 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] 09/11/2008 03/08/2012 Urinary retention [R33.9] 02/17/2011 11/30/2016 Allergic rhinitis [J30.9] 03/07/2012 Chronic back pain [M54.9, G89.29] 03/08/2012 History of spinal cord injury, lumbar, left leg*10/22/2014 Dyslipidemia [E78.5] 05/23/2018 Impaired fasting glucose [R73.01] 05/23/2019 Elevated PSA [R97.20] 05/23/2019 Gastroesophageal reflux disease [K21.9] 06/05/2020 Actinic keratosis due to exposure to sunlight [*06/09/2021 Degeneration of intervertebral disc of lumbosac*04/25/2019 Pelvic Fracture NOS - closed - [facility] [S32.9XXA] 04/25/2019 Osteoporosis [M81.0] 04/25/2019 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]05/06/2019 Fracture lumbar vertebra - closed - [facility] [S32.02*04/25/2019 Hyperlipidemia [E78.5] 09/21/2021 Arthritis [M19.90] 09/21/2021 Nonrheumatic aortic valve insufficiency [I35.1] 06/02/2022 Primary hypertension [I10] 06/15/2022 Chronic cough [R05.3] 02/14/2023 Encounter Status:Closed by MIKEL RIOS on 11/14/23 [facility] CNOVon 10-23-2023 CNOV Office Visit (WHIT ) MARTY ANTUNEZ ([id number]) 1945 M Date Time Provider Department 10/23/23 10:00 AM ROBERTO CARLOS GODWIN During your visit today, we recorded the following information about you: Temperature Pulse Respiration Blood pressure 97.6 degrees 77/minute 20/minute 160/81 Weight Height 70.3 kg 1.727 m Roberto Carlos Godwin MD 10/23/2023 1:03 PM Signed This note was created using NoteWriter. Subjective Marty Antunez is a 78 year old male. The patient primarily being seen for back pain - [facility] Patient was last seen on: 07/19/23 At that time, the treatment plan was: see notes Current Meds: Gabapentin - last dose last pm, Celebrex - yesterday, Tizanidine - last pm Efficacy: help Side effects: none TENS unit: had one but didn't help How often used: Benefit: Physical Therapy: years ago - does exercises on his own Last UDS: no narcotics Last injection: none OARRS reviewed 07/19/2023 10/23/2023 INTAKE PAIN ASSESSMENT Are you having pain associated with your visit today? Yes, Provider notified Yes, Provider notified Pain Scales Verbal (Numeric Rating or Visual Analog Scale) Verbal (Numeric Rating or Visual Analog Scale) Pain Level 2 4 Pain Location Back-Lower Back Description Dull;Shooting Sore;Stiffness;Sharp Frequency Continuous Continuous Intervention/Comfort measure Medication;Relaxation;Heat Medication;Heat HPI Patient is getting adequate relief from the present regimen and denies any side effect from it. This has improved the patient?s level of functionality and has been able to perform activities of daily living. The patient exhibits no aberrant behavior. The PDMP report and last UDS are both consistent with prescribed medications and are unremarkable. Review of Systems Constitutional: Negative for fever and unexpected weight change. Musculoskeletal: +back pain, joint pain, numbness, tingling, muscle cramps/weakness, stiffness, arthritis, sciatica, and leg pain with exertion. Objective BP 160/81 (BP Site: Left Arm, BP Position: Sitting, BP Cuff Size: Large Adult) Pulse 77 Temp 36.4 ?C (97.6 ?F) (Temporal) Resp 20 Ht 172.7 cm (5' 8 ) Wt 70.3 kg (155 lb) SpO2 99% BMI 23.57 kg/m? Physical Exam Vitals and nursing note reviewed. Constitutional: General: He is not in acute distress. Appearance: Normal appearance. He is well-developed, well-groomed and normal weight. HENT: Head: Normocephalic and atraumatic. Right Ear: Hearing and external ear normal. Left Ear: Hearing and external ear normal. Nose: Nose normal. Eyes: General: No scleral icterus. Extraocular Movements: Extraocular movements intact. Conjunctiva/sclera: Conjunctivae normal. Musculoskeletal: Comments: He is not using his cane today. There is tenderness to palpation in the lumbar region with spasms in the trapezius, paraspinal, and latissimus dorsi muscles. Strength is 4-5/5 in the LLE. He has atrophy noted in the LLE. Sensation is decreased in the lateral LLE, worse around the proximal lateral thigh. SLR is negative. He has a brace present on the left ankle. Skin: General: Skin is warm and dry. Neurological: Mental Status: He is alert and oriented to person, place, and time. Psychiatric: Attention and Perception: Attention and perception normal. Mood and Affect: Mood and affect normal. Speech: Speech normal. Behavior: Behavior normal. Behavior is cooperative. Thought Content: Thought content normal. Judgment: Judgment normal. Assessment and Plan ASSESSMENT/PLAN: 1. Degeneration of intervertebral disc of lumbosacral region - [facility] - ICD9: 722.52, ICD10: M51.37 (primary diagnosis) 2. Pelvic Fracture NOS - closed - [facility] - ICD9: [id number], ICD10: S32.9XXA 3. Fracture lumbar vertebra - closed - [facility] - ICD9: 805.4, ICD10: S32.020A PLAN: The patient will continue with gabapentin, celecoxib, and tizanidine. He will continue with core strengthening and range of motion exercises. Follow-up in office in 6 months time. 30 minutes spent for chronic pain management distinct from evaluation and management Two or more stable chronic illness and prescription medication management This document was transcribed using a voice recognition software and may contain minor errors. MD Tato Rios Gamaliel Eugene, MD 10/23/2023 10:38 AM Signed The patient will continue with gabapentin, celecoxib, and tizanidine. He will continue with core strengthening and range of motion exercises. Follow-up in office in 6 months time. Referring Provider: LUPE FORTUNE [[id number]] Allergies As of Date: 10/23/2023 Noted Allergy Reaction DUST MITES 07/19/2023 16 - Unknown Comments: Also cockroaches. Date Reviewed: 10/23/2023 Reviewed by: Roberto Carlos Godwin MD - Fully Assessed Reason for Visit: Back Pain [12] Primary Visit Diagnosis:Degen (more content not included)... [facility] CNOVon 10-17-2023 [facility] Office Visit (INTMWS ) TULIO,MARTY Ceballos ([id number]) 1945 M Date Time Provider Department 10/17/23 10:00 AM SCARLETPRABHAKARDimple Tang INTMWS During your visit today, we recorded the following information about you: Pulse Blood pressure 90/minute 149/85 Mikel Rios MA 10/17/2023 10:10 AM Signed BP Tremaine Serial, Digital BP Readings, Taken 2 Minutes Apart, Average Readings: 149/85 Pulse: 88 149/86 hr 90 149/86 hr 88 148/84 hr 88 149/83 hr 88 147/85 hr 87 Reason for blood pressure check - Last BP elevated Patient is: Taking medication as prescribed Yes Took medication today No If no, date medication last taken - evening Experiencing side effects No Recommendations Continue taking medications as prescribed, Follow recommended diet instructions, Continue recommended activity, and Avoid excessive salt Follow-up Yes Pt has been identified by name and birthdate: Yes Allergies reviewed: Yes Latex allergy: no. Medication - prescribed and OTC reviewed and updated: Yes Do you need any prescription refills prior to your next visit: No Health Maintenance: Reviewed and up to date Allergies As of Date: 10/17/2023 Noted Allergy Reaction DUST MITES 07/19/2023 16 - Unknown Comments: Also cockroaches. Date Reviewed: 07/19/2023 Reviewed by: Cleveland Gomez, RN - Fully Assessed Reason for Visit: Nurse visit - bp check [Other] Primary Visit Diagnosis:Primary hypertension [I10] Prescriptions as of 10/17/2023 - celecoxib (CELEBREX) 200 mg capsule Take 1 capsule by mouth once daily. - gabapentin (NEURONTIN) 300 mg capsule Take 1 capsule by mouth two times a day for 120 days. - tiZANidine (ZANAFLEX) 4 mg tablet Take 1 tablet by mouth every 8 hours as needed. - atorvastatin (LIPITOR) 20 mg tablet Take 1 tablet by mouth daily at bedtime. For cholesterol. - alendronate (FOSAMAX) 70 mg tablet Take 1 tablet by mouth one time a week. Take with a full glass of water, on an empty stomach; do NOT lie down for 30minutes. - losartan (COZAAR) 25 mg tablet Take 1 tablet by mouth once daily. - tamsulosin (FLOMAX) 0.4 mg Take 1 capsule by mouth once daily. - latanoprost, PF, 0.005 % drop Use 1 Drop in eyes daily at bedtime. - Omeprazole Magnesium (PRILOSEC OTC) 20 mg tablet Take 1 tablet by mouth daily at bedtime. 1/2 hr before meal. - melatonin 10 mg cap Take 1 capsule by mouth at bedtime as needed. - Ascorbic Acid 1,000 mg tablet Take 1 tablet by mouth once daily. 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] 09/11/2008 03/08/2012 Urinary retention [R33.9] 02/17/2011 11/30/2016 Allergic rhinitis [J30.9] 03/07/2012 Chronic back pain [M54.9, G89.29] 03/08/2012 History of spinal cord injury, lumbar, left leg*10/22/2014 Dyslipidemia [E78.5] 05/23/2018 Impaired fasting glucose [R73.01] 05/23/2019 Elevated PSA [R97.20] 05/23/2019 Gastroesophageal reflux disease [K21.9] 06/05/2020 Actinic keratosis due to exposure to sunlight [*06/09/2021 Degeneration of intervertebral disc of lumbosac*04/25/2019 Pelvic Fracture NOS - closed - [facility] [S32.9XXA] 04/25/2019 Osteoporosis [M81.0] 04/25/2019 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]05/06/2019 Fracture lumbar vertebra - closed - [facility] [S32.02*04/25/2019 Hyperlipidemia [E78.5] 09/21/2021 Arthritis [M19.90] 09/21/2021 Nonrheumatic aortic valve insufficiency [I35.1] 06/02/2022 Primary hypertension [I10] 06/15/2022 Chronic cough [R05.3] 02/14/2023 Encounter Status:Closed by MIKEL RIOS on 10/17/23 [facility] 10-17-2023 CNPN Telephone (INTMWS) MARTY ANTUNEZ ([id number]) 1945 M Date Time Provider Department 10/17/23 VAISHALI NOVAK INTMWS During your visit today, we recorded the following information about you: Mikel Rios MA 10/17/2023 10:09 AM Signed BP Tremaine Serial, Digital BP Readings, Taken 2 Minutes Apart, Average Readings: 149/85 Pulse: 88 149/86 hr 90 149/86 hr 88 148/84 hr 88 149/83 hr 88 147/85 hr 87 Reason for blood pressure check - Last BP elevated Patient is: Taking medication as prescribed Yes Took medication today No If no, date medication last taken - evening Experiencing side effects No Recommendations Continue taking medications as prescribed, Follow recommended diet instructions, Continue recommended activity, and Avoid excessive salt Follow-up Yes Pt has been identified by name and birthdate: Yes Allergies reviewed: Yes Latex allergy: no. Medication - prescribed and OTC reviewed and updated: Yes Do you need any prescription refills prior to your next visit: No Health Maintenance: Reviewed and up to date Vaishali Novak APRN.DOMINGA 10/17/2023 10:19 AM Signed Increase Losartan to 50 mg daily. Recheck in one month CHRIS Sellers Toni, MA 10/17/2023 10:46 AM Signed Pt notified, verbalized understanding. 1 month nurse visit scheduled. Allergies As of Date: 10/17/2023 Noted Allergy Reaction DUST MITES 07/19/2023 16 - Unknown Comments: Also cockroaches. Date Reviewed: 07/19/2023 Reviewed by: Cleveland Gomez, RN - Fully Assessed Reason for Visit: Blood Pressure Check [195] Visit Diagnosis:Primary hypertension [I10] Order(s):losartan (COZAAR) 50 mg tabletTake 1 tablet by mouth once daily.Disp: Rfl: Prescriptions as of 10/17/2023 - losartan (COZAAR) 50 mg tablet Take 1 tablet by mouth once daily. - celecoxib (CELEBREX) 200 mg capsule Take 1 capsule by mouth once daily. - gabapentin (NEURONTIN) 300 mg capsule Take 1 capsule by mouth two times a day for 120 days. - tiZANidine (ZANAFLEX) 4 mg tablet Take 1 tablet by mouth every 8 hours as needed. - atorvastatin (LIPITOR) 20 mg tablet Take 1 tablet by mouth daily at bedtime. For cholesterol. - alendronate (FOSAMAX) 70 mg tablet Take 1 tablet by mouth one time a week. Take with a full glass of water, on an empty stomach; do NOT lie down for 30minutes. - tamsulosin (FLOMAX) 0.4 mg Take 1 capsule by mouth once daily. - latanoprost, PF, 0.005 % drop Use 1 Drop in eyes daily at bedtime. - Omeprazole Magnesium (PRILOSEC OTC) 20 mg tablet Take 1 tablet by mouth daily at bedtime. 1/2 hr before meal. - melatonin 10 mg cap Take 1 capsule by mouth at bedtime as needed. - Ascorbic Acid 1,000 mg tablet Take 1 tablet by mouth once daily. 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] 09/11/2008 03/08/2012 Urinary retention [R33.9] 02/17/2011 11/30/2016 Allergic rhinitis [J30.9] 03/07/2012 Chronic back pain [M54.9, G89.29] 03/08/2012 History of spinal cord injury, lumbar, left leg*10/22/2014 Dyslipidemia [E78.5] 05/23/2018 Impaired fasting glucose [R73.01] 05/23/2019 Elevated PSA [R97.20] 05/23/2019 Gastroesophageal reflux disease [K21.9] 06/05/2020 Actinic keratosis due to exposure to sunlight [*06/09/2021 Degeneration of intervertebral disc of lumbosac*04/25/2019 Pelvic Fracture NOS - closed - [facility] [S32.9XXA] 04/25/2019 Osteoporosis [M81.0] 04/25/2019 Other [facility] (current) drug therapy [Z79.899]05/06/2019 Fracture lumbar vertebra - closed - [facility] [S32.02*04/25/2019 Hyperlipidemia [E78.5] 09/21/2021 Arthritis [M19.90] 09/21/2021 Nonrheumatic aortic valve insufficiency [I35.1] 06/02/2022 Primary hypertension [I10] 06/15/2022 Chronic cough [R05.3] 02/14/2023 Prescriptions ordered this encounter Disp Refills Start End LOSARTAN 50 MG TABLET 10/17/2023 Class: Med Update Route: ORAL Sig: Take 1 tablet by mouth once daily. Medications Discontinued During This Encounter Prescriptions - losartan (COZAAR) 25 mg tablet (Discontinued) Take 1 tablet by mouth once daily. Encounter Status:Closed by MIKEL RIOS on 10/17/23 [facility] Yelena 07-19-2023 CNOV Office Visit (PAMMJK ) MARTY ANTUNEZ ([id number]) 1945 M Date Time Provider Department 07/19/23 10:00 AM LUPE FORTUNE PAMMJK During your visit today, we recorded the following information about you: Temperature Pulse Respiration Blood pressure 97.8 degrees 93/minute 18/minute 146/89 Lupe Fortune PA-C 07/19/2023 10:26 AM Signed This note was created using Gema Touch. Subjective Marty Antunez is a 78 year old male. The patient primarily being seen for back pain-[facility] Patient was last seen on: 03/20/23 At that time, the treatment plan was: see notes Current Meds: Gabapentin last pm/ Celebrex yest./ Tizanidine last pm Efficacy: helpful Side effects: denies TENS unit: How often used: Benefit: Physical Therapy: Last UDS: Last injection: OARRS reviewed At the present time, the patient reports benefit with his present analgesic therapy. He denies any adverse effects. Since his previous visit, he denies any hospitalizations or ER visits. Otherwise, he has nothing further to discuss at this time. 07/14/2023 07/19/2023 INTAKE PAIN ASSESSMENT Are you having pain associated with your visit today? 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 Spinal cord injury 08/16/1979 Fall at work, left leg atrophy Urinary retention 02/17/2011 PAST SURGICAL HISTORY Procedure Laterality Date COLONOSCOPY FLX DX W/COLLJ SPEC WHEN PFRMD 11/2003 Colonoscopy COLONOSCOPY FLX DX W/COLLJ SPEC WHEN PFRMD 02/23/2012 Colonoscopy COLONOSCOPY FLX DX W/COLLJ SPEC WHEN PFRMD 05/04/2018 Colonoscopy NEUROPLASTY AND/TRANSPOS MEDIAN NRV CARPAL TUNNE 2009 Carpal tunnel decomp, LEFT NEUROPLASTY AND/TRANSPOSITION ULNAR NERVE WRIST 2009 LEFT OPEN REPAIR OF ROTATOR CUFF ACUTE 1992 Rotator cuff repair, LEFT TONSILLECTOMY AND ADENOIDECTOMY Social History Tobacco Use Smoking status: Never Smokeless tobacco: Never Vaping Use Vaping Use: Never used Substance Use Topics Alcohol use: Not Currently Drug use: Never Review of Systems Constitutional: Negative for fever and unexpected weight change. Musculoskeletal: +back pain, joint pain, numbness, tingling, muscle cramps/weakness, stiffness, arthritis, sciatica, and leg pain with exertion. Objective BP 146/89 (BP Site: Left Arm, BP Position: Sitting, BP Cuff Size: Large Adult) Pulse 93 Temp 36.6 ?C (97.8 ?F) (Temporal) Resp 18 SpO2 96% Physical Exam Vitals and nursing note reviewed. Constitutional: Appearance: Normal appearance. He is well-developed, well-groomed and normal weight. HENT: Head: Normocephalic and atraumatic. Right Ear: Hearing normal. Left Ear: Hearing normal. Eyes: Conjunctiva/sclera: Conjunctivae normal. Musculoskeletal: Comments: He is not using his cane today. There is tenderness to palpation in the lumbar region with spasms in the trapezius, paraspinal, and latissimus dorsi muscles. Strength is 4-5/5 in the LLE. He has atrophy noted in the LLE. Sensation is decreased in the lateral LLE, worse around the proximal lateral thigh. SLR is negative. He has a brace present on the left ankle. Neurological: Mental Status: He is alert and oriented to person, place, and time. Psychiatric: Attention and Perception: Attention and perception normal. Mood and Affect: Mood and affect normal. Speech: Speech normal. Behavior: Behavior normal. Behavior is cooperative. Thought Content: Thought content normal. Judgment: Judgment normal. Assessment and Plan ASSESSMENT/PLAN: 1. Degeneration of intervertebral disc of lumbosacral region - [facility] - ICD9: 722.52, ICD10: M51.37 (primary diagnosis) The OARRS report has been reviewed and is consistent with the patients medical history and medication intake. Continue with the gabapentin, celecoxib, and tizandine Continue with core strengthening and range of motion exercises FU in the office in 3-4 months. Discuss your blood pressure with your family doctor - BP 146/89 - GABAPENTIN 300 MG CAPSULE - CELECOXIB 200 MG CAPSULE - TIZANIDINE 4 MG TABLET 2. Pelvic Fracture NOS - closed - [facility] - ICD9: [id number], ICD10: S32.9XXA 3. Fracture lumbar vertebra - close (more content not included)... Normal [facility] 25(OH)D3 SerPl-mCncon 2023 25-hydroxyvitamin D3 [Mass/Vol] 54.4 ng/mL Normal 31.0-80.0 [facility] Comment on above: Order Comment: Speci men Type: BLOOD SPECIMENOrdering Facility: [facility] Address: [address] [place] [address] Result Comment: Clas sification of 25 OH Vitamin D status: Deficiency/Insufficiency: < or = 30 ng/ml. Sufficiency/Optimal Levels: 31-80 ng/mL Toxicity: > 100 ng/mL. Test performed by chemiluminescent immunoassay. Performed By: #### 1 989-3 ####[facility] LAB[facility] [id number] [place] [address] [place] CBC panel Auto (Bld)on 07-16 Erythrocyte distribution width (RBC) [Ratio] 12.5 % Normal 11.5-15.0 [facility] Comment on above: Order Comment: Speci men Type: BLOOD SPECIMENOrdering Facility: [facility] Address: [address] [place] [address] Performed By: #### 5 8410-2 ####[facility] [id number] [place] [address] [place] Hematocrit (Bld) [Volume fraction] 38.7 % Low 39.0-51.0 [facility] Comment on above: Order Comment: Speci men Type: BLOOD SPECIMENOrdering Facility: [facility] Address: [address] [place] [address] Performed By: #### 5 8410-2 ####[facility] [id number] [place] [address] [place] Hemoglobin (Bld) [Mass/Vol] 13.2 g/dL Normal 13.0-17.0 [facility] Comment on above: Order Comment: Speci men Type: BLOOD SPECIMENOrdering Facility: [facility] Address: [address] [place] [address] Performed By: #### 5 8410-2 ####[facility] [id number] [place] [address] [place] MCH (RBC) [Entitic mass] 30.8 pg Normal 26.0-34.0 [facility] Comment on above: Order Comment: Speci men Type: BLOOD SPECIMENOrdering Facility: [facility] Address: [address] [place] [address] Performed By: #### 5 8410-2 ####[facility] [id number] [place] [address] [place] MCHC (RBC) [Mass/Vol] 34.1 g/dL Normal 30.5-36.0 [facility] Comment on above: Order Comment: Speci men Type: BLOOD SPECIMENOrdering Facility: [facility] Address: [address] [place] [address] Performed By: #### 5 8410-2 ####[facility] LABIA [id number] [place] [address] [place] MCV (RBC) [Entitic vol] 90.2 fL Normal 80.0-100.0 [facility] Comment on above: Order Comment: Speci men Type: BLOOD SPECIMENOrdering Facility: [facility] Address: [address] [place] [address] Performed By: #### 5 8410-2 ####[facility] [id number] [place] [address] [place] Nucleated RBC (Bld) [#/Vol] 10*3/uL Normal <0.01 [facility] Comment on above: Order Comment: Speci men Type: BLOOD SPECIMENOrdering Facility: [facility] Address: [address] [place] [address] Performed By: #### 5 8410-2 ####[facility] LABIA [id number] [place] [address] [place] Platelet mean volume (Bld) [Entitic vol] 9.3 fL Normal 9.0-12.7 [facility] Comment on above: Order Comment: Speci men Type: BLOOD SPECIMENOrdering Facility: [facility] Address: [address] [place] [address] Performed By: #### 5 8410-2 ####[facility] LABIA [id number] [place] [address] [place] Platelets (Bld) [#/Vol] 191 10*3/uL Normal 150-400 [facility] Comment on above: Order Comment: Speci men Type: BLOOD SPECIMENOrdering Facility: [facility] Address: [address] [place] [address] Performed By: #### 5 8410-2 ####[facility] LABIA [id number] [place] [address] [place] RBC (Bld) [#/Vol] 4.29 10*6/uL Normal 4.20-6.00 [facility] Comment on above: Order Comment: Speci men Type: BLOOD SPECIMENOrdering Facility: [facility] Address: [address] [place] [address] Performed By: #### 5 8410-2 ####[facility] LABIA [id number] [place] [address] [place] WBC (Bld) [#/Vol] 6.17 10*3/uL Normal 3.70-11.00 [facility] Comment on above: Order Comment: Speci men Type: BLOOD SPECIMENOrdering Facility: [facility] Address: [address] [place] [address] Performed By: #### 5 8410-2 ####[facility] LABCLIA [id number] [address] [address] [place] Comprehensive metabolic 2000 panelon 07-17-2023 Albumin [Mass/Vol] 4.4 g/dL Normal 3.9-4.9 [facility] Comment on above: Order Comment: Speci men Type: BLOOD SPECIMENOrdering Facility: [facility] Address: [address] [place] [address] Performed By: #### 2 4323-8, 02124-3 ####[facility] LABCLIA [id number] [place] [address] [place] ALP [Catalytic activity/Vol] 65 U/L Normal 38-113 [facility] Comment on above: Order Comment: Speci men Type: BLOOD SPECIMENOrdering Facility: [facility] Address: [address] [place] [address] Performed By: #### 2 4323-8, 36421-5 ####[facility] LABIA [id number] [place] [address] [place] ALT [Catalytic activity/Vol] 27 U/L Normal 10-54 [facility] Comment on above: Order Comment: Speci men Type: BLOOD SPECIMENOrdering Facility: [facility] Address: [address] [place] [address] Performed By: #### 2 4323-8, 78573-3 ####[facility] LABIA [id number] [place] [id number] [place] Anion gap [Moles/Vol] 9 mmol/L Normal 9-18 [facility] Comment on above: Order Comment: Speci men Type: BLOOD SPECIMENOrdering Facility: [facility] Address: [address] [place] [address] Performed By: #### 2 4323-8, 30358-4 ####[facility] LABIA [id number] [place] [id number] [place] AST [Catalytic activity/Vol] 32 U/L Normal 14-40 [facility] Comment on above: Order Comment: Speci men Type: BLOOD SPECIMENOrdering Facility: [facility] Address: [address] [place] [address] Performed By: #### 2 4323-8, 93676-4 ####[facility] LABCLIA [id number] [place] [address] [place] Bilirubin [Mass/Vol] 0.5 mg/dL Normal 0.2-1.3 [facility] Comment on above: Order Comment: Speci men Type: BLOOD SPECIMENOrdering Facility: [facility] Address: [address] [place] [address] Performed By: #### 2 4323-8, 73982-2 ####[facility] LABCLIA [id number] [place] [address] [place] Calcium [Mass/Vol] 9.9 mg/dL Normal 8.5-10.2 [facility] Comment on above: Order Comment: Speci men Type: BLOOD SPECIMENOrdering Facility: [facility] Address: [address] [place] [address] Performed By: #### 2 4323-8, 58823-8 ####[facility] LABCLIA [id number] [place] [address] [place] Chloride [Moles/Vol] 100 mmol/L Normal 97-105 [facility] Comment on above: Order Comment: Speci men Type: BLOOD SPECIMENOrdering Facility: [facility] Address: [address] [place] [address] Performed By: #### 2 4323-8, 67784-6 ####[facility] LABCLIA [id number] [place] [address] [place] CO2 [Moles/Vol] 26 mmol/L Normal 22-30 [facility] Comment on above: Order Comment: Speci men Type: BLOOD SPECIMENOrdering Facility: [facility] Address: [address] [place] [address] Performed By: #### 2 4323-8, 76919-3 ####[facility] [id number] [place] [address] [place] Creatinine [Mass/Vol] 0.77 mg/dL Normal 0.73-1.22 [facility] Comment on above: Order Comment: Speci men Type: BLOOD SPECIMENOrdering Facility: [facility] Address: [address] [place] [address] Performed By: #### 2 4323-8, 29922-5 ####[facility] [id number] [place] [address] [place] Creatinine and Glomerular filtration rate.predicted panel (S/P/Bld) 92 mL/min/1.73m??? Normal >=60 [facility] Comment on above: Order Comment: Khushbu men Type: BLOOD SPECIMENOrdering Facility: [facility] Address: [address] [place] [address] Result Comment: Melva mated Glomerular Filtration Rate (eGFR) is calculated using the 2020 CKD-EPI creatinine equation. This equation utilizes serum creatinine, sex, and age as parameters. The creatinine assay has traceable calibration to isotope dilution-mass spectrometry. Refer to KDIGO guidelines for clinical interpretation. In patients with unstable renal function, e.g. those with acute kidney injury, the eGFR may not accurately reflect actual GFR. Performed By: #### 2 4323-8, 47705-2 ####[facility] LAB[facility] [id number] [place] [address] [place] Glucose [Mass/Vol] 106 mg/dL High 74-99 [facility] Comment on above: Order Comment: Speci men Type: BLOOD SPECIMENOrdering Facility: [facility] Address: [address] [place] [address] Result Comment: The [place] Diabetes Association (ADA) provides guidance for cutoff values for fasting glucose and random glucose. The ADA defines fasting as no caloric intake for at least 8 hours. Fasting plasma glucose results between 100 to 125 mg/dL indicate increased risk for diabetes (prediabetes). Fasting plasma glucose results greater than or equal to 126 mg/dL meet the criteria for diagnosis of diabetes. In the absence of unequivocal hyperglycemia, results should be confirmed by repeat testing. In a patient with classic symptoms of hyperglycemia or hyperglycemic crisis, random plasma glucose results greater than or equal to 200 mg/dL meet the criteria for diagnosis of diabetes. Reference: Standards of Medical Care in Diabetes 2016, [place] Diabetes Association. Diabetes Care. 2016.39(Suppl 1). Performed By: #### 2 4323-8, 17625-1 ####[facility] LABCLIA [id number] [place] [address] [place] Potassium [Moles/Vol] 4.4 mmol/L Normal 3.7-5.1 [facility] Comment on above: Order Comment: Speci men Type: BLOOD SPECIMENOrdering Facility: [facility] Address: [address] [place] [address] Performed By: #### 2 4328, ####[facility] LABCLIA [id number] [place] [address] [place] Protein [Mass/Vol] 8.0 g/dL Normal 6.3-8.0 [facility] Comment on above: Order Comment: Stacyi sherri Type: BLOOD SPECIMENOrdering Facility: [facility] Address: [address] [place] [address] Performed By: #### 2 4328, ####[facility] LABCLIA [id number] [facility] [place] [address] [place] Sodium [Moles/Vol] 135 mmol/L Low 136-144 [facility] Comment on above: Order Comment: Stacyi men Type: BLOOD SPECIMENOrdering Facility: [facility] Address: [address] [place] [address] Performed By: #### 2 4323-8, 46495-9 ####[facility] LABCLIA [id number] [place] [address] [place] Urea nitrogen [Mass/Vol] 17 mg/dL Normal 9-24 [facility] Comment on above: Order Comment: Speci men Type: BLOOD SPECIMENOrdering Facility: [facility] Address: [address] [place] [address] Performed By: #### 2 4323-8, 10922-9 ####[facility] LABCLIA [id number] [place] [address] [place] Lipid 1996 panelon 4 Cholesterol [Mass/Vol] 131 mg/dL Normal <200 [facility] Comment on above: Order Comment: Speci men Type: BLOOD SPECIMENOrdering Facility: [facility] Address: [address] [place] [address] Result Comment: <200 mg/dL, Desirable 200-239 mg/dL, Borderline high >239 mg/dL, High Performed By: #### 2 4323-8, 85249-1 ####[facility] LABCLIA [id number] [place] [address] [place] Cholesterol in HDL [Mass/Vol] 60 mg/dL Normal >39 [facility] Comment on above: Order Comment: Speci men Type: BLOOD SPECIMENOrdering Facility: [facility] Address: [address] [place] [address] Result Comment: 40-5 9 mg/dL, Acceptable >59 mg/dL, High: Negative risk factor for coronary heart disease <40 mg/dL, Low: Positive risk factor for coronary heart disease Performed By: #### 2 4323-8, 29328-1 ####[facility] LABCLIA [id number] [place] [address] [place] Cholesterol in LDL [Mass/Vol] 55 mg/dL Normal <100 [facility] Comment on above: Order Comment: Speci men Type: BLOOD SPECIMENOrdering Facility: [facility] Address: [address] [place] [address] Result Comment: <100 mg/dL, Optimal 100-129 mg/dL, Near optimal/above optimal 130-159 mg/dL, Borderline high 160-189 mg/dL, High >189 mg/dL, Very high Secondary prevention optimal LDL Cholesterol levels are recommended to be < 70 mg/dL Performed By: #### 2 4323-8, 95212-7 ####[facility] LABCLIA [id number] [place] [address] [place] Cholesterol in LDL/Cholesterol in HDL [Mass ratio] 0.92 {ratio} Normal <2.54 [facility] Comment on above: Order Comment: Khushbu polanco Type: BLOOD SPECIMENOrdering Facility: [facility] Address: [address] [place] [address] Result Comment: Refe rence: 1. National Cholesterol Education Program ATP III Guideline At-A-Glance Quick Desk Reference: National Heart, Lung, and Blood [place]. National Institutes of Health. 2001: NIH Publication No. 01-3305. 2. An International Atherosclerosis Society position paper: global recommendations for the management of dyslipidemia: executive summary, Atherosclerosis. 2014: 232(2):410-413. Performed By: #### 2 4323-8, 69489-1 ####[facility] LABIA [id number] [place] [address] [place] Cholesterol in VLDL [Mass/Vol] 16 mg/dL Normal <30 [facility] Comment on above: Order Comment: Khushbu polanco Type: BLOOD SPECIMENOrdering Facility: [facility] Address: [address] [place] [address] Performed By: #### 2 4323-8, 23281-4 ####[facility] LABIA [id number] [place] [address] [place] Cholesterol non HDL [Mass/Vol] 71 mg/dL Normal <130 [facility] Comment on above: Order Comment: Khushbu polanco Type: BLOOD SPECIMENOrdering Facility: [facility] Address: [address] [place] [address] Result Comment: <130 mg/dL, Optimal 130-159 mg/dL, Near optimal/above optimal 160-189 mg/dL, Borderline high 190-219 mg/dL, High >219 mg/dL, Very high Secondary prevention optimal non HDL Cholesterol levels are recommended to be <100 mg/dL Performed By: #### 2 4323-8, 12805-4 ####[facility] LABCLIA [id number] [place] [address] [place] Cholesterol.total/ Cholesterol in HDL [Mass ratio] 2.18 {ratio} Normal <5.10 [facility] Comment on above: Order Comment: Speci men Type: BLOOD SPECIMENOrdering Facility: [facility] Address: [address] [place] [address] Performed By: #### 2 4323-8, 19630-2 ####[facility] LABCLIA [id number] [address] [place] FASTING TIME 12 hrs Normal [facility] Comment on above: Order Comment: Speci men Type: BLOOD SPECIMENOrdering Facility: [facility] Address: [address] [place] [address] Performed By: #### 2 4323-8, 09613-1 ####[facility] LABCLIA [id number] [address] [place] Triglyceride [Mass/Vol] 82 mg/dL Normal <150 [facility] Comment on above: Order Comment: Speci men Type: BLOOD SPECIMENOrdering Facility: [facility] Address: [address] [place] [address] Result Comment: <150 mg/dL, Normal 150-199 mg/dL, Borderline high 200-499 mg/dL, High >499 mg/dL, Very high Performed By: #### 2 4323-8, 73555-3 ####[facility] LABCLIA [id number] [place] [address] [place] CNOVon 07-14-2023 CNOV Office Visit (INTMWS ) MARTY ANTUNEZ ([id number]) 1945 M Date Time Provider Department 07/14/23 12:20 PM VAISHALI NOVAK INTMWS During your visit today, we recorded the following information about you: Pulse Respiration Blood pressure Weight 95/minute 14/minute 136/82 73.5 kg Height 1.727 m Vaishali Novak, ELECTROENCEPHALOGRAPH TECHNICIAN.GENERAL FARM HAND 07/14/2023 1:54 PM Signed Marty Antunez is a 78 year old male here for a Medicare wellness visit. Medicare Health Risk Assessment General Health Good Exercise: Minutes/Day 60 min Exercise: Days/Week 3 days Alcohol: Daily Use Monthly or less Alcohol: Drinks/Day 1 or 2 Alcohol: 6 or more drinks Never Feel off balance Yes Concerns: Teeth/Dentures No Concerns: Sexual function No Troubled by feelings None of the above Frequency: Eating healthy diet ADLs requiring help None of the above Safety precautions in home/vehicle Yes Smoke, vape, chews tobacco No Difficulty hearing No Difficulty seeing Yes Current Providers Specialists: I have reviewed specialist-related care of the patient in the medical record. Current care team: Patient Care Team: Neslon Rea MD as PCP - General (Internal Medicine) Lupe GILLIAM-pain management Kimberley GILLIAM-urology Outside specialists seen: [facility] Medical/Family history review Reviewed and updated problem list, medical/surgical/family/soci al history, medications, and allergies. Opioid use review Opioid Medications (last 90 days) No data to display Depression screening Depression Screening PHQ-2 Score 07/14/2023 0 Depression screening tool completed and reviewed. Based on score and interview, patient is not at risk for depression. Screening tool discussed with patient, and I recommended no further intervention at this time. Cognitive screening Mini Cog Score: 5 Cognitive screening reviewed and no further action needed (score 3-5) Functional Observation Was the patient's Timed Up AND Go test unsteady or ? 12 seconds? No Advance Care Planning Patient did not wish or was not able to name a surrogate decision maker or provide an advance care plan Measurements BP 136/82 Pulse 95 Resp 14 Ht 5' 8 (1.73m) Wt 162 lb (73.5kg) SpO2 95% BMI 24.64 kg/(m2). Vision Screening: Follows with optometry/ophthalmology Assessment/Plan Medicare annual wellness visit, subsequent (Z00.00) - Counseled on healthy diet and regular exercise - Fall avoidance information provided - Personalized prevention plan provided Additional Concerns The following concerns were also discussed with the patient: HTN-Medication changes:No Taking all medications as prescribed: Yes Side effects: No Home BP's: No Denies: headache, chest pain, palpitations, dyspnea, and peripheral edema. Last 3 Encounter BP Readings: Date: BP: 07/14/2023 136/82 03/20/2023 152/86 02/14/2023 134/76 PHYSICAL EXAM BP 136/82 Pulse 95 Resp 14 Ht 172.7 cm (5' 8 ) Wt 73.5 kg (162 lb) SpO2 95% BMI 24.63 kg/m? GENERAL: well appearing, alert, in no acute distress CARDIOVASCULAR: regular rate and rhythm. No murmur, rubs or gallops. PULMONARY: clear to auscultation, no wheezing, rhonchi, or crackles ASSESSMENT/PLAN: 1. Medicare annual wellness visit, subsequent - ICD9: V70.0, ICD10: Z00.00 (primary diagnosis) See medicare wellness plan 2. Primary hypertension - ICD9: 401.9, ICD10: I10 - Uncontrolled - Continue current medications - Recommend home blood pressure monitoring, to bring results to next visit - Encouraged sodium restriction, DASH or Mediterranean diet - Follow up in 3 months for hypertension visit 3. Hyperlipidemia, unspecified hyperlipidemia type - ICD9: 272.4, ICD10: E78.5 - Control undetermined, due for labs - Continue current medications 4. Impaired fasting glucose - ICD9: 790.21, ICD10: R73.01 recheck Vaishali Novak APRN.Vaishali Elilott APRN.CNP 07/14/2023 12:42 PM Addendum Screening schedule The following prevention plan is recommended: BP Controlled (<130/80) Never done DTaP,Tdap,Td Vaccine(1 - Tdap) due on 03/08/2012 WHAT YOU CAN DO TO PREVENT FALLS Many falls can be prevented. By making some changes, you can lower your chances of falling. Four things YOU can do to prevent falls for you* and your caregiver 1. Begin a regular exercise program Exercise is one of the most important ways to lower your chances of falling. It makes you stronger and helps you feel better. Exercises that improve balance and coordination (like Isaiah Chi) are the most helpful. Lack of exercise leads to weakness and increases your chances of falling. Ask your doctor or health care provider about the best type of exercise program for you. 2. Have your health care provider review your medicines Have your doctor or pharmacist review all the medicines you take, even cwle-knn-zhxttki (more content not included)... Normal [facility] CNOVon 03-20-2023 CNOV Office Visit (WHIT ) MARTY ANTUNEZ ([id number]) 1945 M Date Time Provider Department 03/20/23 10:00 AM LUPE FORTUNE During your visit today, we recorded the following information about you: Temperature Pulse Respiration Blood pressure 97.4 degrees 79/minute 18/minute 152/86 Lupe Fortune PA-C 03/20/2023 10:29 AM Signed This note was created using Gema Touch. Subjective Marty Antunez is a 77 year old male. The patient primarily being seen for back pain-[facility] Patient was last seen on: 11/14/22 At that time, the treatment plan was: see notes Current Meds: Gabapentin last pm/ Celebrex yest./ Tizanidine last pm Efficacy: helpful Side effects: denies TENS unit: How often used: Benefit: Physical Therapy: Last UDS: Last injection: OARRS reviewed At the present time, the patient reports benefit with his present analgesic therapy. He denies any adverse effects. Since his previous visit, he denies any hospitalizations or ER visits. Otherwise, he has nothing further to discuss at this time. INTAKE PAIN ASSESSMENT 02/14/2023 03/20/2023 Are you having pain associated with your visit today? 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 Spinal cord injury 08/16/1979 Fall at work, left leg atrophy Urinary retention 02/17/2011 PAST SURGICAL HISTORY Procedure Laterality Date COLONOSCOPY FLX DX W/COLLJ SPEC WHEN PFRMD 11/2003 Colonoscopy COLONOSCOPY FLX DX W/COLLJ SPEC WHEN PFRMD 02/23/2012 Colonoscopy COLONOSCOPY FLX DX W/COLLJ SPEC WHEN PFRMD 05/04/2018 Colonoscopy NEUROPLASTY AND/TRANSPOS MEDIAN NRV CARPAL TUNNE 2009 Carpal tunnel decomp, LEFT NEUROPLASTY AND/TRANSPOSITION ULNAR NERVE WRIST 2009 LEFT OPEN REPAIR OF ROTATOR CUFF ACUTE 1992 Rotator cuff repair, LEFT TONSILLECTOMY AND ADENOIDECTOMY Social History Tobacco Use Smoking status: Never Smokeless tobacco: Never Vaping Use Vaping Use: Never used Substance Use Topics Alcohol use: Not Currently Drug use: Never Review of Systems Constitutional: Negative for fever and unexpected weight change. Musculoskeletal: +back pain, joint pain, numbness, tingling, muscle cramps/weakness, stiffness, arthritis, sciatica, and leg pain with exertion. Objective BP 152/86 (BP Site: Left Arm, BP Position: Sitting, BP Cuff Size: Large Adult) Pulse 79 Temp 36.3 ?C (97.4 ?F) (Temporal) Resp 18 SpO2 97% Physical Exam Vitals and nursing note reviewed. Constitutional: Appearance: Normal appearance. He is well-developed, well-groomed and normal weight. HENT: Head: Normocephalic and atraumatic. Right Ear: Hearing normal. Left Ear: Hearing normal. Eyes: Conjunctiva/sclera: Conjunctivae normal. Musculoskeletal: Comments: He is using a cane for assistance with his gait. There is tenderness to palpation in the lumbar region with spasms in the trapezius, paraspinal, and latissimus dorsi muscles. Strength is 4-5/5 in the LLE. He has atrophy noted in the LLE. Sensation is decreased in the lateral LLE, worse around the proximal lateral thigh. SLR is negative. He has a brace present on the left ankle. Neurological: Mental Status: He is alert and oriented to person, place, and time. Psychiatric: Attention and Perception: Attention and perception normal. Mood and Affect: Mood and affect normal. Speech: Speech normal. Behavior: Behavior normal. Behavior is cooperative. Thought Content: Thought content normal. Judgment: Judgment normal. Assessment and Plan ASSESSMENT/PLAN: 1. Degeneration of intervertebral disc of lumbosacral region - [facility] - ICD9: 722.52, ICD10: M51.37 (primary diagnosis) The OARRS report has been reviewed and is consistent with the patients medical history and medication intake. Continue with the gabapentin, celecoxib, and tizandine Continue with core strengthening and range of motion exercises Let us know if you'd like to try trigger point injections and we will get these scheduled. FU in the office in 3-4 months. Discuss your blood pressure with your family d (more content not included)... Normal [facility] BD DXA - AXIAL SKELETONon BD DXA - AXIAL SKELETON * * *Final Report* * * DATE OF EXAM: Feb 14 2023 11:31AM [facility] 0804 - BD DXA - AXIAL SKELETON / PROCEDURE REASON: multiple diagnoses * * * * Physician Interpretation * * * * PROCEDURE: BD DXA - AXIAL SKELETON INDICATION: Wedge compression fracture of second lumbar vertebra, initial encounter for closed fracture (HCC) . TECHNIQUE: Low dose AP spine and hip images COMPARISON: None LUMBAR SPINE: The bone mineral density from L1 through L4 is 0.838 grams per square centimeter which yields a T-score of -2.2. LEFT HIP: The bone mineral density of the total region of the hip is 0.691 grams per square centimeter which yields a T-score of -2.3. LEFT FEMORAL NECK: The bone mineral density of the femoral neck is 0.623 grams per square centimeter which yields a T-score of -2.3. RIGHT HIP: The bone mineral density of the total region of the hip is 0.815 grams per square centimeter which yields a T-score of -1.4. RIGHT FEMORAL NECK: The bone mineral density of the femoral neck is 0.679 grams per square centimeter which yields a T-score of -1.8. 10-year Fracture Risk (FRAX): Major osteoporotic fracture risk 28% Hip fracture risk 21% IMPRESSION: Diffuse osteopenia. [facility] ORG. CLASSIFICATION OF BONE MASS CLASSIFICATION T-SCORE Normal Greater than -1 Low Bone Mass Between -1 and -2.5 (Osteopenia) Osteoporosis Less than or equal to -2.5 Wire Frame Maker: MELISSA Transcribe Date/Time: Feb 14 2023 1:13P Dictated by : ISHMAEL HARGROVE MD This examination was interpreted and the report reviewed and electronically signed by: ISHMAEL HARGROVE MD on Feb 14 2023 1:15PM EST [id number] [facility] CNOVon 02-14-2023 CNOV Office Visit (INTMWS ) MARTY ANTUNEZ ([id number]) 1945 M Date Time Provider Department 02/14/23 9:20 AM NELSON REA INTMWS During your visit today, we recorded the following information about you: Pulse Respiration Blood pressure Weight 80/minute 16/minute 134/76 70.8 kg Nelson Rea MD 02/14/2023 10:33 AM Signed This note was created using NoteWriter. Subjective Marty Antunez is a 77 year old male. He noted a chronic dry cough since spring. He first thought seasonal allergies, then wildfire smog, but this has persisted. He now correlated this with initiation of lisinopril for hypertension. Lipids were controlled. He had x rays indicative of osteoporosis, and in fact knew he was losing height from changes in the fit of his coats. Review of Systems Constitutional: Negative for appetite change, diaphoresis, fatigue, fever and unexpected weight change. HENT: Positive for postnasal drip. Negative for sore throat. Respiratory: Negative for chest tightness, shortness of breath and wheezing. Gastrointestinal: Negative. Neurological: Negative for dizziness and headaches. ACTIVE PROBLEM LIST Bph With Obstruction/Lower Urinary Tract Symptoms Allergic Rhinitis Chronic Back Pain History of spinal cord injury, lumbar, left leg atrophy and paresis. Dyslipidemia Impaired Fasting Glucose Elevated Psa Gastroesophageal Reflux Disease Actinic Keratosis Due to Exposure to Sunlight Degeneration of intervertebral disc of lumbosacral region - BWC Pelvic Fracture NOS - closed - BWC Osteoporosis Other Assisted (Current) Drug Therapy Fracture lumbar vertebra - closed - BWC Hyperlipidemia Arthritis Nonrheumatic Aortic Valve Insufficiency Primary Hypertension Chronic Cough Social History Tobacco Use Smoking status: Never Smokeless tobacco: Never Vaping Use Vaping Use: Never used Substance Use Topics Alcohol use: Not Currently Drug use: Never Current Outpatient Medications Medication Sig celecoxib (CELEBREX) 200 mg capsule Take 1 capsule by mouth once daily. tamsulosin (FLOMAX) 0.4 mg Take 1 capsule by mouth once daily. latanoprost, PF, 0.005 % drop Use 1 Drop in eyes daily at bedtime. gabapentin (NEURONTIN) 300 mg capsule Take 1 capsule by mouth twice daily. tiZANidine (ZANAFLEX) 4 mg tablet Take 1 tablet by mouth every 8 hours as needed. atorvastatin (LIPITOR) 20 mg tablet Take 1 tablet by mouth daily at bedtime. For cholesterol. Omeprazole Magnesium (PRILOSEC OTC) 20 mg tablet Take 1 tablet by mouth daily at bedtime. 1/2 hr before meal. melatonin 10 mg cap Take 1 capsule by mouth at bedtime as needed. Ascorbic Acid 1,000 mg tablet Take 1 tablet by mouth once daily. losartan (COZAAR) 25 mg tablet Take 1 tablet by mouth once daily. No current facility-administered medications for this visit. Objective BP 134/76 (BP Site: Left Arm, BP Position: Sitting, BP Cuff Size: Large Adult) Pulse 80 Resp 16 Wt 70.8 kg (156 lb) BMI 23.04 kg/m? Physical Exam Constitutional: General: He is not in acute distress. Appearance: He is not ill-appearing. HENT: Nose: Nose normal. Neck: Vascular: No carotid bruit. Cardiovascular: Pulses: Normal pulses. Heart sounds: S1 normal. No murmur heard. No gallop. Comments: Increased S2. Pulmonary: Effort: No respiratory distress. Breath sounds: No rhonchi or rales. Comments: Rare wheeze. Musculoskeletal: Right lower leg: No edema. Left lower leg: No edema. Lymphadenopathy: Cervical: No cervical adenopathy. Neurological: Mental Status: He is alert. Assessment and Plan 1. Chronic cough - ICD9: 786.2, ICD10: R05.3 (primary diagnosis) Rei inhibitor cough. Discontinue LISINOPRIL. Expect improvement in a few weeks. If no change, return for reevaluation. 2. Fracture lumbar vertebra - closed - BWC - ICD9: 805.4, ICD10: S32.020A - DXA-AXIAL SKELETON 3. Primary hypertension - ICD9: 401.9, ICD10: I10 Fair. - LOSARTAN 25 MG TABLET. New medication. Discussed medication dosage, usage, goals of therapy, and side effects. - CBC 4. Dyslipidemia - ICD9: 272.4, ICD10: E78.5 - Controlled - Continue current medications - COMP METABOLIC PANEL - LIPID PANEL BASIC 5. Age related osteoporosis, unspecified pathological fracture presence - ICD9: 733.01, ICD10: M81.0 - Reviewed the need for Calcium and Vitamin D supplements and weight bearing exercise as tolerated - DXA-AXIAL SKELETON - VITAMIN D 25 HYDROXY - We discussed likely need to start ALENDRONATE. Discussed medication dosage, usage, goals of therapy, and side effects. 6. Nonrheumatic aortic valve insufficiency - ICD9: 424.1, ICD10: I35.1 Repeat echo next year. Nelson Rea MD Allergies As of Date: 02/14/2023 Noted Allergy Reaction Environmental allergies [Other] 10/24/2008 Comments: Cockroaches, dust mites Date Revie (more content not included)... [facility] No Panel Informationon 02-14 [facility] UA DIP, URINE (POC)on 2022 BILIRUBIN UA (POCT) Negative Negative [facility] CL[facility] (POCT) [facility] COLOR UA (POCT) Yellow [facility] GLUCOSE UA (POCT) Negative Negative mg/dL [facility] Hemoglobin Ql (U) Negative Negative [facility] KETONE UA (POCT) Negative Negative mg/dL [facility] LEUKOCYTES UA (POCT) Negative Negative [facility] NITRITE UA (POCT) Negative Negative [facility] PH UA (POCT) 7.0 4.5 - 8.0 [facility] Protein Ql (U) Negative Negative mg/dL [facility] SPECIFIC GRAVITY UA (POCT) 1.015 1.005 - 1.030 [facility] UROBILINOGEN UA (POCT) 0.2 E.U./dL Normal E.U./dL [facility] STRESS ECHO DOBUTAMINEon STRESS ECHO DOBUTAMINE Stress Real Estate Developer Report: Dobutamine Stress [facility] Date of service: 05/31/2022 1:11:21 PM Supervising physician: Dany Blake DO PATIENT: Name: MARTY ANTUNEZ Age: 77 years Gender: M The supervising physician was in the department and immediately available. Final Echocardiography Report: Dobutamine Stress [facility] Date of service: 05/31/2022 1:11:21 PM Ordering physician: NELSON REA Indication: Dyspnea on exertion Technologist: Fiorella Travis [facility] Interpreting physician: Benitez Nuenz MD PATIENT: Name: MARTY ANTUNEZ : 1945 Age: 77 years Gender: M Height: 175.26 cm BSA: 1.89 m Weight: 73.03 kg BMI: 23.8 kg/m Heart rate 86 bpm Blood pressure 152/88 mmHg Color Doppler was utilized to interrogate the cardiac valves assessed and spectral Doppler was utilized to determine the flow velocities and pressure gradients reported in this exam. MEASUREMENTS: Value Indexed Normal Max aortic dimension 3.6 cm Ao < 3.8 Left atrial volume 66 ml (biplane A-L) 35 ml/m Yolanda <= 34 LV ID (diastole) 4.8 cm (2D) 2.52 cm/m LV ID (systole) 3.3 cm (2D) 1.74 cm/m IVS, leaflet tips 1.1 cm (2D) Posterior wall thickness 0.9 cm (2D) Left ventricular mass 169 g (2D) 90 g/m LV stroke volume 56 ml (2D biplane) LV end diastolic volume 103 ml (2D biplane) 54.5 ml/m 34<=EDVi<75 LV end systolic volume 47 ml (2D biplane) 25.0 ml/m Ejection Fraction 54 % (2D biplane) EF > 52 FINDINGS: LEFT VENTRICLE The left ventricle is normal in size. Left ventricular systolic function is normal. Mitral annular lateral E/e': 11.9. Mitral annular septal E/e': 15.9. Wall Motion: Rest: All scored segments are normal. Low dose: All scored segments are normal. Peak dose: All scored segments are normal. LEFT ATRIUM The left atrial cavity is mildly dilated. MITRAL VALVE There is mild (1+) mitral valve regurgitation. The pressure half time is 52 msec. The peak mitral E/A ratio is 0.68. The average mitral E/e' ratio is 13.9. The mitral flow deceleration time is 180 msec. TRICUSPID VALVE There is mild (1+) tricuspid valve regurgitation. AORTIC VALVE There is mild (1+ - 2+) aortic valve regurgitation. Tricuspid aortic valve. There is mild calcification. The peak gradient is 9 mmHg (peak velocity = 146.0 cm/s). PULMONIC VALVE There is trace pulmonic valve regurgitation. AORTA The visualized aorta is normal in size. Measurements - Mid ascending aorta 3.6 cm. PERICARDIUM There is an epicardial fat pad. DOBUTAMINE STRESS ECHO Rest HR 86 bpm. Peak HR 137 bpm. (95 % MPHR) Rest BP 152 mmHg/88 mmHg. Peak BP 131 mmHg/69 mmHg. CONCLUSIONS: - Exam indication: Dyspnea on exertion - The dobutamine stress echo was negative for ischemia at 95 % of MPHR. - The left ventricle is normal in size. Left ventricular systolic function is normal. EF = 54 5% (2D biplane) - The left atrial cavity is mildly dilated. - There is mild mitral regurgitation. - There is mild tricuspid regurgitation. - There is mild to moderate aortic regurgitation. - The patient has not had a prior CC echocardiographic exam for comparison. Final Stress ECG Report: Dobutamine Stress [facility] Date of service: 05/31/2022 1:11:21 PM Ordering physician: NELSON REA forensic identification specialist: J[facility] Social Worker: Juliet Sarmiento Interpreting physician: Benitez Nunez MD Patient name: MARTY ANTUNEZ Age: 77 years Gender: M Height: 175.26 cm BSA: 1.89 m Weight: 73.03 kg BMI: 23.8 kg/m Indication: Dyspnea on exertion Stress ECG Conclusion: Conclusion: Normal Stress ECG Summary: The patient's resting heart rate was 86 bpm and blood pressure was 152/88 mmHg. The test was terminated due to end of protocol. No symptoms provoked during stress. The maximum heart rate was 137 bpm, which is 95% of the predicted heart rate for age. Peak blood pressure was 131/69 mmHg. The double product achieved was [address]. Medications: Last Used ATORVASTATIN CELEBREX NEURONTIN FLOMAX Resting ECG: Normal Sinus Rhythm and Occasional PVCs (3-7/Min) Symptoms at rest: No symptoms Pharamcologic Protocol: Dobutamine Stress Exercise Table: +------+ +--------- -+---+---+---+ Stage Time (min) Dose (mcg) HR SYS JOSIE +------+ +--------- -+---+---+---+ 1 3.0 11.0 94 148 78 +------+ +--------- -+---+---+---+ 2 3.0 21.9 105 164 81 +------+ +--------- -+---+---+---+ 3 3.0 32.8 137 131 69 +------+---- (more content not included)... [facility] CNPNon 05-30-2022 CNPN Telephone (CDLBME) MARTY ANTUNEZ ([id number]) 1945 M Date Time Provider Department 05/30/22 [facility] During your visit today, we recorded the following information about you: Juliet Sarmiento RN 05/30/2022 3:11 PM Signed Spoke with patient regarding reminder for stress test tomorrow and given instructions. Allergies As of Date: 05/30/2022 Noted Allergy Reaction Environmental allergies [Other] 10/24/2008 Comments: Cockroaches, dust mites Date Reviewed: 05/19/2022 Reviewed by: Jaimee Andrade LPN - Fully Assessed Reason for Visit: Reminder Call [[id number]] Prescriptions as of 05/30/2022 - atorvastatin (LIPITOR) 20 mg tablet Take 1 tablet by mouth daily at bedtime. For cholesterol. - methocarbamol (ROBAXIN-750) 750 mg tablet Take 1 tablet by mouth three times daily as needed. - celecoxib (CELEBREX) 200 mg capsule Take 1 capsule by mouth once daily. - gabapentin (NEURONTIN) 300 mg capsule Take 1 capsule by mouth three times daily for 120 days. - tamsulosin (FLOMAX) 0.4 mg take 1 capsule by mouth once daily - Omeprazole Magnesium (PRILOSEC OTC) 20 mg tablet Take 1 tablet by mouth daily at bedtime. 1/2 hr before meal. - melatonin 10 mg cap Take 1 capsule by mouth at bedtime as needed. - Ascorbic Acid 1,000 mg tablet Take 1 tablet by mouth once daily. 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] 09/20/2007 03/08/2012 Neoplasm of uncertain behavior of skin [D48.5] 12/31/2007 03/08/2012 Benign neoplasm of skin of other and unspecifie*12/31/2007 11/30/2016 Other chronic dermatitis due to solar radiation*12/31/2007 11/30/2016 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] 09/11/2008 03/08/2012 Urinary retention [R33.9] 02/17/2011 11/30/2016 Allergic rhinitis [J30.9] 03/07/2012 Chronic back pain [M54.9, G89.29] 03/08/2012 History of spinal cord injury, lumbar, left leg*10/22/2014 Elevated blood pressure reading [R03.0] 02/08/2018 Dyslipidemia [E78.5] 05/23/2018 Impaired fasting glucose [R73.01] 05/23/2019 Elevated PSA [R97.20] 05/23/2019 Gastroesophageal reflux disease [K21.9] 06/05/2020 Actinic keratosis due to exposure to sunlight [*06/09/2021 Degeneration of intervertebral disc of lumbosac*04/25/2019 Pelvic Fracture NOS - closed - BWC [S32.9XXA] 04/25/2019 Osteoporosis [M81.0] 04/25/2019 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 L2 compression fracture Wire Frame Maker: MELISSA Transcribe Date/Time: May 19 2022 4:29P Dictated by : MOHIT KNUTSON MD This examination was interpreted and the report reviewed and electronically signed by: MOHIT KNUTSON MD on May 19 2022 4:30PM [facility] DIVISION OF RADIOLOGY * * *Final Report* * * DATE OF EXAM: May 19 2022 3:38PM WOX [id number] - XR CHEST 2V FRONTAL/LAT / PROCEDURE REASON: multiple diagnoses * * * * Physician Interpretation * * * * EXAMINATION: CHEST RADIOGRAPH (2 VIEW FRONTAL & LATERAL) CLINICAL HISTORY: LVH (left ventricular hypertrophy) [place] (dyspnea on exertion) MQ: XC2_6 EXAM DATE/TIME: 05/19/2022 3:38 PM COMPARISON: Lumbar spine films dated 05/06/2019 RESULT: Lines, tubes, and devices: None. Lungs and pleura: No consolidation. No lung mass. No pleural effusion. No pneumothorax. Cardiomediastinal silhouette: Normal cardiomediastinal silhouette. Bones and soft tissues: Severe compression of L2 vertebra. Stable Straightening of the normal thoracic kyphosis. Degenerative changes throughout. DIVISION OF RADIOLOGY Provider, [facility] - 05/19/2022 * * *Final Report* * * DATE OF EXAM: May 19 2022 3:38PM WOX [id number] - XR CHEST 2V FRONTAL/LAT / PROCEDURE REASON: multiple diagnoses * * * * Physician Interpretation * * * * EXAMINATION: CHEST RADIOGRAPH (2 VIEW FRONTAL & LATERAL) CLINICAL HISTORY: LVH (left ventricular hypertrophy) [place] (dyspnea on exertion) MQ: XC2_6 EXAM DATE/TIME: 05/19/2022 3:38 PM COMPARISON: Lumbar spine films dated 05/06/2019 RESULT: Lines, tubes, and devices: None. Lungs and pleura: No consolidation. No lung mass. No pleural effusion. No pneumothorax. Cardiomediastinal silhouette: Normal cardiomediastinal silhouette. Bones and soft tissues: Severe compression of L2 vertebra. Stable Straightening of the normal thoracic kyphosis. Degenerative changes throughout. IMPRESSION IMPRESSION: No acute radiographic abnormality. L2 compression fracture Wire Frame Maker: PSCB Transcribe Date/Time: May 19 2022 4:29P Dictated by : MOHIT KNUTSON MD This examination was interpreted and the report reviewed and electronically signed by: MOHIT KNUTSON MD on May 19 2022 4:30PM EST [facility] Radiology Study observation (narrative) [facility] XR Chest PA and LateralOrder ed By: [facility] Provider on 05-19-2022 [facility] UA DIP, URINE (POC)on 2021 BILIRUBIN UA (POCT) Negative Negative [facility] CLARITY UA (POCT) Clear [facility] COLOR UA (POCT) Yellow [facility] GLUCOSE UA (POCT) Negative Negative mg/dL [facility] HEMOGLOBIN/BLOOD UA (POCT) Negative Negative [facility] KETONE UA (POCT) Negative Negative mg/dL [facility] LEUKOCYTES UA (POCT) Negative Negative [facility] NITRITE UA (POCT) Negative Negative [facility] PH UA (POCT) 6.5 4.5 - 8.0 [facility] Protein Ql (U) Negative Negative mg/dL [facility] SPECIFIC GRAVITY UA (POCT) 1.015 1.005 - 1.030 [facility] UROBILINOGEN UA (POCT) 0.2 E.U./dL Normal E.U./dL [facility] LUMBAR SPINE 2 OR 3 VWSon LUMBAR SPINE 2 OR 3 VWS LUMBAR SPINE 2 OR 3 VWS Ordering Physician: Roberto Carlos Godwin MD 05/06/2019 5:31 PM LUMBAR SPINE THREE VIEWS Clinical Statement: Lumbosacral disk degeneration Comparison: None FINDINGS: There are five nonrib-bearing lumbar vertebral segments. There is moderate to severe compression deformity at L2, of undetermined age. There are component suggesting acute on chronic process with sclerosis and areas of hyperlucency. There is retropulsion into the spinal canal and retrolisthesis at L2-3. There is severe degeneration of the L2-3 disk with vacuum phenomena. There is moderate loss of disk space height at L3-4 and L4-5 with mild posterior loss at L5-S1. There is facet joint spondylosis at L3-S1, most severe on the left at L4-5 and L5-S1 respectively. There is minimal levocurvature of the upper lumbar region. IMPRESSION: Moderate to severe compression deformity at L2 including retropulsion and retrolisthesis. There are features suggesting acute on chronic process including severe degeneration of the L2-3 disk. Further assessment suggested. A stat report was forwarded to the referring physician shortly following dictation. ---- Electronic Signature on File ---- Signed By: Milton Chua MD [email or web address] Dictated: 05/06/2019 6:21 PM Signed: 05/06/2019 6:23 PM Reported By: MILTON CHUA M.D. Signed By: MILTON CHUA M.D. [facility] Vital Signs Date Time Vital Sign Value Performing Clinician Facility 01-30-2024 09:58-0400 Diastolic blood pressure 80 mm[Hg] Lupe Fortune PA-C Work Phone: [facility] 01-30-2024 09:58-0400 Heart rate 79 /min Lupe Fortune PA-C Work Phone: [facility] 01-30-2024 09:58-0400 Respiratory rate 16 /min Lupe Fortune PA-C Work Phone: [facility] 01-30-2024 09:58-0400 SaO2% (BldA) [Mass fraction] 99 % Lupe Fortune PA-C Work Phone: [facility] 01-30-2024 09:58-0400 Systolic blood pressure 154 mm[Hg] Lupe Fortune PA-C Work Phone: [facility] 01-23-2024 10:36-0400 Body mass index (BMI) [Ratio] 24.02 kg/m2 Kimberley Hawley PA-C Work Phone: [facility] 01-23-2024 10:36-0400 Body temperature 98.1 [degF] Kimberley Hawley PA-C Work Phone: [facility] 01-23-2024 10:36-0400 Body weight 71.67 kg Kimberley Hawley PA-C Work Phone: [facility] 01-23-2024 10:36-0400 Diastolic blood pressure 76 mm[Hg] Kimberley Hawley PA-C Work Phone: [facility] Comment on above: Kimberley aware of blood pressure. 01-23-2024 10:36-0400 Heart rate 86 /min Kimberley Hawley PA-C Work Phone: [facility] 01-23-2024 10:36-0400 Respiratory rate 14 /min Kimberley Hawley PA-C Work Phone: [facility] 01-23-2024 10:36-0400 SaO2% (BldA) [Mass fraction] 98 % Kimberley Hawley PA-C Work Phone: [facility] 01-23-2024 10:36-0400 Systolic blood pressure 144 mm[Hg] Kimberley Hawley PA-C Work Phone: [facility] Comment on above: Kimberley aware of blood pressure. 01-16-2024 11:03-0400 Diastolic blood pressure 82 mm[Hg] Vaishlai Scarlet ELECTROENCEPHALOGRAPH TECHNICIAN.GENERAL FARM HAND Work Phone: [facility] 01-16-2024 11:03-0400 Systolic blood pressure 136 mm[Hg] Vaishali Scarlet ELECTROENCEPHALOGRAPH TECHNICIAN.GENERAL FARM HAND Work Phone: [facility] 01-16-2024 10:45-0400 Body mass index (BMI) [Ratio] 24.14 kg/m2 Vaishali Scarlet ELECTROENCEPHALOGRAPH TECHNICIAN.GENERAL FARM HAND Work Phone: [facility] 01-16-2024 10:45-0400 Body weight 72 kg Vaishali Scarlet ELECTROENCEPHALOGRAPH TECHNICIAN.GENERAL FARM HAND Work Phone: [facility] 01-16-2024 10:45-0400 Heart rate 79 /min Vaishali SethiScarlet ELECTROENCEPHALOGRAPH TECHNICIAN.GENERAL FARM HAND Work Phone: [facility] 01-16-2024 10:45-0400 Respiratory rate 18 /min Vaishali Scarlet ELECTROENCEPHALOGRAPH TECHNICIAN.GENERAL FARM HAND Work Phone: [facility] 01-16-2024 10:45-0400 SaO2% (BldA) [Mass fraction] 97 % Vaishali Scarlet ELECTROENCEPHALOGRAPH TECHNICIAN.GENERAL FARM HAND Work Phone: [facility] 11-14-2023 08:56-0400 Diastolic blood pressure 94 mm[Hg] Vaishali Scarlet ELECTROENCEPHALOGRAPH TECHNICIAN.GENERAL FARM HAND Work Phone: [facility] 11-14-2023 08:56-0400 Heart rate 77 /min Vaishali Scarlet ELECTROENCEPHALOGRAPH TECHNICIAN.GENERAL FARM HAND Work Phone: [facility] 11-14-2023 08:56-0400 Respiratory rate 18 /min Vaishali Scarlet ELECTROENCEPHALOGRAPH TECHNICIAN.GENERAL FARM HAND Work Phone: [facility] 11-14-2023 08:56-0400 SaO2% (BldA) [Mass fraction] 97 % Vaishali Scarlet ELECTROENCEPHALOGRAPH TECHNICIAN.GENERAL FARM HAND Work Phone: [facility] 11-14-2023 08:56-0400 Systolic blood pressure 146 mm[Hg] Vaishali Scarlet ELECTROENCEPHALOGRAPH TECHNICIAN.GENERAL FARM HAND Work Phone: [facility] 10-23-2023 10:23-0400 Diastolic blood pressure 81 mm[Hg] Roberto Carlos Godwin MD Work Phone: [facility] 10-23-2023 10:23-0400 Systolic blood pressure 160 mm[Hg] Roberto Carlos Godwin MD Work Phone: [facility] 10-23-2023 10:17-0400 Body height 172.7 cm Roberto Carlos Godwin MD Work Phone: [facility] 10-23-2023 10:17-0400 Body mass index (BMI) [Ratio] 23.57 kg/m2 Roberto Carlos Godwin MD Work Phone: [facility] 10-23-2023 10:17-0400 Body temperature 97.59 [degF] Roberto Carlos Godwin MD Work Phone: [facility] 10-23-2023 10:17-0400 Body weight 70.31 kg Roberto Carlos Godwin MD Work Phone: [facility] 10-23-2023 10:17-0400 Heart rate 77 /min Roberto Carlos Godwin MD Work Phone: [facility] 10-23-2023 10:17-0400 Respiratory rate 20 /min Roberto Carlos Godwin MD Work Phone: [facility] 10-23-2023 10:17-0400 SaO2% (BldA) [Mass fraction] 99 % Roberto Carlos Godwin MD Work Phone: [facility] 10-17-2023 10:09-0400 Diastolic blood pressure 85 mm[Hg] Vaishali Scarlet ELECTROENCEPHALOGRAPH TECHNICIAN.GENERAL FARM HAND Work Phone: [facility] Comment on above: bp tremaine average 10-17-2023 10:09-0400 Heart rate 90 /min Vaishali Scarlet ELECTROENCEPHALOGRAPH TECHNICIAN.GENERAL FARM HAND Work Phone: [facility] 10-17-2023 10:09-0400 Systolic blood pressure 149 mm[Hg] Vaishali Scarlet ELECTROENCEPHALOGRAPH TECHNICIAN.GENERAL FARM HAND Work Phone: [facility] Comment on above: bp tremaine average 07-19-2023 09:56-0400 Body temperature 97.81 [degF] Lupe Fortune PA-C Work Phone: [facility] 07-19-2023 09:56-0400 Diastolic blood pressure 89 mm[Hg] Lupe Fortune PA-C Work Phone: [facility] 07-19-2023 09:56-0400 Heart rate 93 /min Lupe Fortune PA-C Work Phone: [facility] 07-19-2023 09:56-0400 Respiratory rate 18 /min Lupe Fortune PA-C Work Phone: [facility] 07-19-2023 09:56-0400 SaO2% (BldA) [Mass fraction] 96 % uLpe GILLIAM-C Work Phone: [facility] 07-19-2023 09:56-0400 Systolic blood pressure 146 mm[Hg] Lupe Fortune PA-C Work Phone: [facility] 07-14-2023 12:40-0400 Diastolic blood pressure 82 mm[Hg] Vaishali Scarlet ELECTROENCEPHALOGRAPH TECHNICIAN.GENERAL FARM HAND Work Phone: [facility] 07-14-2023 12:40-0400 Systolic blood pressure 136 mm[Hg] Vaishali Scarlet ELECTROENCEPHALOGRAPH TECHNICIAN.GENERAL FARM HAND Work Phone: [facility] 07-14-2023 12:15-0400 Body height 172.7 cm Vaishali Scarlet ELECTROENCEPHALOGRAPH TECHNICIAN.GENERAL FARM HAND Work Phone: [facility] 07-14-2023 12:15-0400 Body weight 73.48 kg Vaishali Scarlet ELECTROENCEPHALOGRAPH TECHNICIAN.GENERAL FARM HAND Work Phone: [facility] 07-14-2023 12:15-0400 Heart rate 95 /min Vaishali Scarlet ELECTROENCEPHALOGRAPH TECHNICIAN.GENERAL FARM HAND Work Phone: [facility] 07-14-2023 12:15-0400 Respiratory rate 14 /min Vaishali Scarlet ELECTROENCEPHALOGRAPH TECHNICIAN.GENERAL FARM HAND Work Phone: [facility] 07-14-2023 12:15-0400 SaO2% (BldA) [Mass fraction] 95 % Vaishali Scarlet ELECTROENCEPHALOGRAPH TECHNICIAN.GENERAL FARM HAND Work Phone: [facility] 03-20-2023 10:07-0500 Body temperature 97.39 [degF] Lupe Fortune PA-C Work Phone: [facility] 03-20-2023 10:07-0500 Diastolic blood pressure 86 mm[Hg] Lupe Fortune PA-C Work Phone: [facility] 03-20-2023 10:07-0500 Heart rate 79 /min Lupe Fortune PA-C Work Phone: [facility] 03-20-2023 10:07-0500 Respiratory rate 18 /min Lupe Fortune PA-C Work Phone: [facility] 03-20-2023 10:07-0500 SaO2% (BldA) [Mass fraction] 97 % Lupe Fortune PA-C Work Phone: [facility] 03-20-2023 10:07-0500 Systolic blood pressure 152 mm[Hg] Lupe Fortune PA-C Work Phone: [facility] 02-14-2023 09:30-0400 Body weight 70.76 kg Nelson Rea MD Work Phone: [facility] 02-14-2023 09:30-0400 Diastolic blood pressure 76 mm[Hg] Nelson Rea MD Work Phone: [facility] 02-14-2023 09:30-0400 Heart rate 80 /min Nelson Rea MD Work Phone: [facility] 02-14-2023 09:30-0400 Respiratory rate 16 /min Nelson Rea MD Work Phone: [facility] 02-14-2023 09:30-0400 Systolic blood pressure 134 mm[Hg] Nelson Rea MD Work Phone: [facility] 01-17-2023 10:25-0400 Body height 175.3 cm Kimberley Hawley PA-C Work Phone: [facility] 01-17-2023 10:25-0400 Body temperature 97.9 [degF] Kimberley Hawley PA-C Work Phone: [facility] 01-17-2023 10:25-0400 Body weight 70.58 kg Kimberley Hawley PA-C Work Phone: [facility] 01-17-2023 10:25-0400 Diastolic blood pressure 84 mm[Hg] Kimberley Hawley PA-C Work Phone: [facility] 01-17-2023 10:25-0400 Heart rate 86 /min Kimberley Hawley PA-C Work Phone: [facility] 01-17-2023 10:25-0400 Respiratory rate 14 /min Kimberley Hawley PA-C Work Phone: [facility] 01-17-2023 10:25-0400 SaO2% (BldA) [Mass fraction] 100 % Kimberley Hawley PA-C Work Phone: [facility] 01-17-2023 10:25-0400 Systolic blood pressure 130 mm[Hg] Kimberley Hawley PA-C Work Phone: [facility] 11-14-2022 09:20-0400 Body temperature 97.5 [degF] Lupe Fortune PA-C Work Phone: [facility] 11-14-2022 09:20-0400 Diastolic blood pressure 56 mm[Hg] Lupe Fortune PA-C Work Phone: [facility] 11-14-2022 09:20-0400 Heart rate 85 /min Lupe Fortune PA-C Work Phone: [facility] 11-14-2022 09:20-0400 Respiratory rate 18 /min Lupe Fortune PA-C Work Phone: [facility] 11-14-2022 09:20-0400 SaO2% (BldA) [Mass fraction] 96 % Lupe Fortune PA-C Work Phone: [facility] 11-14-2022 09:20-0400 Systolic blood pressure 128 mm[Hg] Lupe Fortune PA-C Work Phone: [facility] 08-17-2022 14:08-0400 Diastolic blood pressure 77 mm[Hg] Nelson Rea MD Work Phone: [facility] 08-17-2022 14:08-0400 Heart rate 88 /min Nelson Rea MD Work Phone: [facility] 08-17-2022 14:08-0400 Systolic blood pressure 129 mm[Hg] Nelson Rea MD Work Phone: [facility] 08-17-2022 13:58-0400 Body weight 73.03 kg Nelson Rea MD Work Phone: [facility] 08-17-2022 13:58-0400 Respiratory rate 16 /min Nelson Rea MD Work Phone: [facility] 08-15-2022 09:31-0400 Diastolic blood pressure 75 mm[Hg] Roberto Carlos Godwin MD Work Phone: [facility] 08-15-2022 09:31-0400 Systolic blood pressure 136 mm[Hg] Roberto Carlos Godwin MD Work Phone: [facility] 08-15-2022 09:29-0400 Body height 175.3 cm Roberto Carlos Godwin MD Work Phone: [facility] 08-15-2022 09:29-0400 Body temperature 97.81 [degF] Roberto Carlos Godwin MD Work Phone: [facility] 08-15-2022 09:29-0400 Body weight 70.31 kg Roberto Carlos Godwin MD Work Phone: [facility] 08-15-2022 09:29-0400 Heart rate 83 /min Roberto Carlos Godwin MD Work Phone: [facility] 08-15-2022 09:29-0400 Respiratory rate 18 /min Roberto Carlos Godwin MD Work Phone: [facility] 08-15-2022 09:29-0400 SaO2% (BldA) [Mass fraction] 97 % Roberto Carlos Godwin MD Work Phone: [facility] 06-15-2022 11:48-0500 Diastolic blood pressure 92 mm[Hg] Vaishali Older ELECTROENCEPHALOGRAPH TECHNICIAN.GENERAL FARM HAND Work Phone: [facility] 06-15-2022 11:48-0500 Heart rate 94 /min Vaishali Older ELECTROENCEPHALOGRAPH TECHNICIAN.GENERAL FARM HAND Work Phone: [facility] 06-15-2022 11:48-0500 Systolic blood pressure 150 mm[Hg] Vaishali Older ELECTROENCEPHALOGRAPH TECHNICIAN.GENERAL FARM HAND Work Phone: [facility] 06-15-2022 11:17-0500 Body height 173.4 cm Vaishali Older ELECTROENCEPHALOGRAPH TECHNICIAN.GENERAL FARM HAND Work Phone: [facility] 06-15-2022 11:17-0500 Body weight 73.48 kg Vaishali Older ELECTROENCEPHALOGRAPH TECHNICIAN.GENERAL FARM HAND Work Phone: [facility] 06-15-2022 11:17-0500 Respiratory rate 16 /min Vaishali Older ELECTROENCEPHALOGRAPH TECHNICIAN.GENERAL FARM HAND Work Phone: [facility] 05-19-2022 14:50-0500 Diastolic blood pressure 85 mm[Hg] Nelson Rea MD Work Phone: [facility] 05-19-2022 14:50-0500 Heart rate 101 /min Nelson Rea MD Work Phone: [facility] 05-19-2022 14:50-0500 Systolic blood pressure 137 mm[Hg] Nelson Rea MD Work Phone: [facility] 05-19-2022 14:42-0500 Body weight 73.03 kg Nelson Rea MD Work Phone: [facility] 05-19-2022 14:42-0500 Respiratory rate 16 /min Nelson Rea MD Work Phone: [facility] 05-16-2022 09:31-0500 Diastolic blood pressure 91 mm[Hg] Lupe GILLIAM-C Work Phone: [facility] 05-16-2022 09:31-0500 Systolic blood pressure 150 mm[Hg] Lupe GILLIAM-C Work Phone: [facility] 05-16-2022 09:29-0500 Body temperature 97.9 [degF] Lupe GILLIAM-C Work Phone: [facility] 05-16-2022 09:29-0500 Heart rate 88 /min Lupe GILLIAM-C Work Phone: [facility] 05-16-2022 09:29-0500 Respiratory rate 18 /min Lupe GILLIAM-C Work Phone: [facility] 05-16-2022 09:29-0500 SaO2% (BldA) [Mass fraction] 98 % Lupe Fortune PA-C Work Phone: [facility] 02-09-2022 09:47-0400 Body temperature 97.11 [degF] Lupe Fortune PA-C Work Phone: [facility] 02-09-2022 09:47-0400 Diastolic blood pressure 89 mm[Hg] Lupe Fortune PA-C Work Phone: [facility] 02-09-2022 09:47-0400 Heart rate 87 /min Lupe Fortune PA-C Work Phone: [facility] 02-09-2022 09:47-0400 Respiratory rate 18 /min Lupe Fortune PA-C Work Phone: [facility] 02-09-2022 09:47-0400 SaO2% (BldA) [Mass fraction] 99 % Lupe Fortune PA-C Work Phone: [facility] 02-09-2022 09:47-0400 Systolic blood pressure 134 mm[Hg] Lupe Fortune PA-C Work Phone: [facility] 01-18-2022 08:06-0400 Body height 175.3 cm Kimberley Hawley PA-C Work Phone: [facility] 01-18-2022 08:06-0400 Body temperature 98.1 [degF] Kimberley Hawley PA-C Work Phone: [facility] 01-18-2022 08:06-0400 Body weight 72.12 kg Kimberley Hawley PA-C Work Phone: [facility] 01-18-2022 08:06-0400 Diastolic blood pressure 86 mm[Hg] Kimberley Hawley PA-C Work Phone: [facility] 01-18-2022 08:06-0400 Heart rate 96 /min Kimberley Hawley PA-C Work Phone: [facility] 01-18-2022 08:06-0400 Respiratory rate 16 /min Kimberley Hawley PA-C Work Phone: [facility] 01-18-2022 08:06-0400 SaO2% (BldA) [Mass fraction] 98 % Kimberley Hawley PA-C Work Phone: [facility] 01-18-2022 08:06-0400 Systolic blood pressure 142 mm[Hg] Kimberley Hawley PA-C Work Phone: [facility] 11-09-2021 10:30-0400 Body height 175.3 cm Lupe GILLIAM-C Work Phone: [facility] 11-09-2021 10:30-0400 Body temperature 97.2 [degF] Lupe GILLIAM-C Work Phone: [facility] 11-09-2021 10:30-0400 Body weight 70.31 kg Lupe GILLIAM-C Work Phone: [facility] 11-09-2021 10:30-0400 Diastolic blood pressure 92 mm[Hg] Lupe GILLIAM-C Work Phone: [facility] 11-09-2021 10:30-0400 Heart rate 71 /min Lupe GILLIAM-C Work Phone: [facility] 11-09-2021 10:30-0400 Respiratory rate 20 /min Lupe GILLIAM-C Work Phone: [facility] 11-09-2021 10:30-0400 SaO2% (BldA) [Mass fraction] 98 % Lupe GILLIAM-C Work Phone: [facility] 11-09-2021 10:30-0400 Systolic blood pressure 143 mm[Hg] Lupe GILLIAM-C Work Phone: [facility] Encounters Encounter Date Encounter Type Care Provider Facility Start: 02-09-2024 End: 02-12-2024 Telephone encounter Nelson Rea MD Work Phone: [facility] [place] Start: 01-30-2024 End: 01-30-2024 Patient encounter procedure Lupe GILLIAM-C Work Phone: Pain Management Comment on above: 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 (Primary Dx); Pelvic Fracture NOS - closed - BWC; Fracture lumbar vertebra - closed - BWC Start: 01-30-2024 End: 01-30-2024 ambulatory LUPE FORTUNE Facility:[id number] Start: 01-25-2024 End: 01-25-2024 ambulatory VAISHALI NOVAK Facility:[facility] [place] Start: 01-23-2024 End: 01-30-2024 [facility] Work Phone: Neurology Start: 01-23-2024 End: 01-23-2024 ambulatory KIMBERLEY MARLEEN Facility:[facility] [place] Start: 01-23-2024 End: 01-23-2024 Patient encounter procedure Kimberley Hawley PA-C Work Phone: Urology Comment on above: BPH with obstruction /lower urinary tract symptoms (Primary Dx) Start: 01-18-2024 End: 01-18-2024 ambulatory KIMBERLEY HAWLEY Facility:[facility] [place] Start: 01-17-2024 End: 01-19-2024 ambulatory Kimberley Marleen PA-C Work Phone: Urology Comment on above: PSA Start: 01-17-2024 End: 01-19-2024 E-mail encounter from caregiver Kimberley Marleen GILLIAM-C Work Phone: Urology Start: 01-16-2024 End: 01-16-2024 ambulatory VAISHALI NOVAK Facility:[facility] [place] Start: 01-16-2024 End: 01-16-2024 Patient encounter procedure aVishali Novak ELECTROENCEPHALOGRAPH TECHNICIAN.GENERAL FARM HAND Work Phone: [facility] [place] Comment on above: Sleep apnea, unspeci fied type (Primary Dx); Primary hypertension; Gastroesophageal reflux disease, unspecified whether esophagitis present; BPH with obstruction/lower urinary tract symptoms Start: 12-27-2023 End: 01-01-2024 Refill Kimberley Hawley PA-C Work Phone: Urology Comment on above: Refill Request Start: 11-14-2023 Telephone encounter Vaishali maldonado ELECTROENCEPHALOGRAPH TECHNICIAN.GENERAL FARM HAND Work Phone: [facility] [place] Comment on above: BP Check Start: 11-14-2023 End: 11-14-2023 ambulatory VAISHALI NOVAK Facility:[facility] [place] Start: 11-14-2023 End: 11-14-2023 Patient encounter procedure Vaishali Novak ELECTROENCEPHALOGRAPH TECHNICIAN.GENERAL FARM HAND Work Phone: [facility] [place] Comment on above: Primary hypertension (Primary Dx) Start: 10-31-2023 Refill Nelson aguillon MD Work Phone: [facility] [place] Comment on above: Refill Request Start: 10-23-2023 End: 10-23-2023 Office outpatient visit 25 minutes Roberto Carlos Godwin MD Work Phone: Pain Management Comment on above: 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 - BWC (Primary Dx); Pelvic Fracture NOS - closed - BWC; Fracture lumbar vertebra - closed - BWC Start: 10-23-2023 End: 10-23-2023 ambulatory ROBERTO CARLOS GODWIN Facility:[id number] Start: 10-17-2023 Telephone encounter Vaishali maldonado ELECTROENCEPHALOGRAPH TECHNICIAN.GENERAL FARM HAND Work Phone: [facility] [place] Comment on above: Blood Pressure Check Start: 10-17-2023 End: 10-17-2023 ambulatory VAISHALI NOVAK Facility:[facility] [place] Start: 10-17-2023 End: 10-17-2023 Patient encounter procedure Vaishali Novak ELECTROENCEPHALOGRAPH TECHNICIAN.GENERAL FARM HAND Work Phone: [facility] [place] Comment on above: Primary hypertension (Primary Dx) Start: 09-08-2023 Refill Lupe muro PA-C Work Phone: Pain Management Comment on above: Refill Request Start: 07-19-2023 End: 07-19-2023 Patient encounter procedure Lupe Fortune PA-C Work Phone: Pain Management Comment on above: 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 - BWC (Primary Dx); Pelvic Fracture NOS - closed - BWC; Fracture lumbar vertebra - closed - BWC Start: 07-19-2023 End: 07-19-2023 ambulatory LUPE FORTUNE Facility:[id number] Start: 07-17-2023 End: 07-17-2023 ambulatory NELSON REA Facility:[facility] [place] Start: 07-14-2023 End: 07-14-2023 ambulatory VAISHALI NOAVK Facility:[facility] [place] Start: 07-14-2023 End: 07-14-2023 Patient encounter procedure Vaishali Novak ELECTROENCEPHALOGRAPH TECHNICIAN.GENERAL FARM HAND Work Phone: [facility] [place] Comment on above: Medicare annual well ness visit, subsequent (Primary Dx); Primary hypertension; Hyperlipidemia, unspecified hyperlipidemia type; Impaired fasting glucose Start: 06-19-2023 Refill Nelson aguillon MD Work Phone: [facility] [place] Comment on above: Refill Request Start: 03-20-2023 End: 03-20-2023 Patient encounter procedure Lupe VASQUESC Work Phone: Pain Management Comment on above: 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 - BWC (Primary Dx); Pelvic Fracture NOS - closed - BWC; Fracture lumbar vertebra - closed - BWC Start: 03-20-2023 End: 03-20-2023 ambulatory LUPE FORTUNE Facility:[id number] Start: 02-19-2023 Orders Only Nelson aguillon MD Work Phone: [facility] [place] Comment on above: Age related osteopor osis, unspecified pathological fracture presence (Primary Dx) Start: 02-14-2023 End: 02-14-2023 Subsequent hospital visit by physician Bone Density [facility] Work Phone: Radiology Comment on above: Wedge compression fr acture of second lumbar vertebra, initial encounter for closed fracture (HCC) [S32.020A] Start: 02-14-2023 End: 02-14-2023 ambulatory NELSON REA Facility:[facility] [place] Start: 02-14-2023 End: 02-14-2023 Patient encounter procedure Nelson Rea MD Work Phone: [facility] [place] Comment on above: Chronic cough (Prima ry Dx); Fracture lumbar vertebra - closed - BWC; Primary hypertension; Dyslipidemia; Age related osteoporosis, unspecified pathological fracture presence; Nonrheumatic aortic valve insufficiency Start: 01-30-2023 Refill Vaishali Older ELECTROENCEPHALOGRAPH TECHNICIAN .GENERAL FARM HAND Work Phone: [facility] [place] Comment on above: Refill Request Start: 01-26-2023 Refill Vaishali Older ELECTROENCEPHALOGRAPH TECHNICIAN .GENERAL FARM HAND Work Phone: [facility] [place] Comment on above: Refill Request Start: 01-17-2023 End: 01-17-2023 Patient encounter procedure Kimberley Hawley PA-C Work Phone: Urology Comment on above: BPH with obstruction /lower urinary tract symptoms (Primary Dx) Start: 12-24-2022 Refill Lupe muro PA-C Work Phone: Pain Management Comment on above: Refill Request Start: 11-24-2022 Refill Lupe muro PA-C Work Phone: Pain Management Comment on above: Refill Request Start: 11-14-2022 End: 11-14-2022 Patient encounter procedure Lupe Fortune PA-C Work Phone: Pain Management Comment on above: 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 - BWC (Primary Dx); Pelvic Fracture NOS - closed - BWC; Fracture lumbar vertebra - closed - BWC Start: 10-25-2022 Refill Lupe umro PA-C Work Phone: Pain Management Comment on above: Refill Request Start: 10-10-2022 Refill Vaishali Older ELECTROENCEPHALOGRAPH TECHNICIAN .GENERAL FARM HAND Work Phone: [facility] [place] Comment on above: Refill Request Start: 10-06-2022 Refill Vaishali Older ELECTROENCEPHALOGRAPH TECHNICIAN .GENERAL FARM HAND Work Phone: [facility] [place] Comment on above: Refill Request Start: 09-25-2022 Refill Lupe muro PA-C Work Phone: Pain Management Comment on above: Refill Request Start: 08-26-2022 Refill Lupe muro PA-C Work Phone: Pain Management Comment on above: Refill Request Start: 08-17-2022 End: 08-17-2022 Patient encounter procedure Nelson Rea MD Work Phone: [facility] [place] Comment on above: 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); Primary hypertension; Impaired fasting glucose; Dyslipidemia Start: 08-15-2022 Refill Lupe muro PA-C Work Phone: Pain Management Comment on above: Refill Request Start: 08-15-2022 End: 08-15-2022 Office outpatient visit 25 minutes Roberto Carlos Godwin MD Work Phone: Pain Management Comment on above: 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 - BWC (Primary Dx); Pelvic Fracture NOS - closed - BWC; Fracture lumbar vertebra - closed - BWC Start: 08-11-2022 Refill Vaishali Older ELECTROENCEPHALOGRAPH TECHNICIAN .GENERAL FARM HAND Work Phone: [facility] [place] Comment on above: Refill Request Start: 06-27-2022 Refill Lupe muro PA-C Work Phone: Pain Management Comment on above: Refill Request Start: 06-16-2022 Refill Vaishali Older ELECTROENCEPHALOGRAPH TECHNICIAN .GENERAL FARM HAND Work Phone: [facility] [place] Comment on above: Med Change Request Start: 06-15-2022 End: 06-15-2022 Patient encounter procedure Vaishali Older ELECTROENCEPHALOGRAPH TECHNICIAN.GENERAL FARM HAND Work Phone: [facility] [place] Comment on above: Medicare annual well ness visit, subsequent (Primary Dx); Primary hypertension; Chronic bilateral low back pain with bilateral sciatica Start: 05-31-2022 ambulatory NELSON Greene lity:[facility] Start: 05-31-2022 End: 05-31-2022 Subsequent hospital visit by physician Echo [facility] Work Phone: Cardiology Lab Comment on above: LVH (left ventricula r hypertrophy) [I51.7] Start: 05-30-2022 Telephone encounter Juliet saldana RN Cardiology Lab Comment on above: Reminder Call Start: 05-28-2022 Refill Lupe GILLIAM-C Work Phone: Pain Management Comment on above: Refill Request Start: 05-19-2022 End: 05-19-2022 Subsequent hospital visit by physician Xr [facility] [place] Work Phone: Radiology Comment on above: LVH (left ventricula r hypertrophy) [I51.7] Start: 05-19-2022 End: 05-19-2022 Patient encounter procedure Nelson Rea MD Work Phone: Internal Medicine [place] Comment on above: Elevated blood press ure reading (Primary Dx); Dyslipidemia; Tachycardia; LVH (left ventricular hypertrophy); [place] (dyspnea on exertion) Start: 05-16-2022 End: 05-16-2022 Patient encounter procedure Lupe Fortune PA-C Work Phone: Pain Management Comment on above: 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 - BWC (Primary Dx); Pelvic Fracture NOS - closed - BWC; Fracture lumbar vertebra - closed - BWC Start: 04-28-2022 Telephone encounter Lupe Fortune PA-C Work Phone: Pain Management Comment on above: Opened In Error Start: 03-29-2022 Refill Lupe GILLIAM-C Work Phone: Pain Management Comment on above: Opened In Error Start: 03-08-2022 Refill Lupe GILLIAM-C Work Phone: Pain Management Comment on above: Refill Request Start: 02-27-2022 Refill Lupe GILLIAM-C Work Phone: Pain Management Comment on above: Refill Request Start: 02-09-2022 End: 02-09-2022 Patient encounter procedure Lupe Fortune PA-C Work Phone: Pain Management Comment on above: 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 - BWC (Primary Dx); Pelvic Fracture NOS - closed - BWC; Fracture lumbar vertebra - closed - BWC Start: 01-28-2022 Refill Lupe muro PA-C Work Phone: Pain Management Comment on above: Refill Request Start: 01-18-2022 End: 01-18-2022 Patient encounter procedure Kimberley Hawley PA-C Work Phone: Urology Comment on above: BPH with obstruction /lower urinary tract symptoms (Primary Dx) Start: 01-04-2022 Refill Lupe muro PA-C Work Phone: Pain Management Comment on above: Refill Request Start: 12-29-2021 Refill Lupe muro PA-C Work Phone: Pain Management Comment on above: Refill Request Start: 12-06-2021 Refill Lupe muro PA-C Work Phone: Pain Management Comment on above: Refill Request Start: 11-29-2021 Refill Lupe muro PA-C Work Phone: Pain Management Comment on above: Refill Request Start: 11-09-2021 End: 11-09-2021 Patient encounter procedure Lupe Fortune PA-C Work Phone: Pain Management Comment on above: 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 - BWC (Primary Dx); Pelvic Fracture NOS - closed - BWC; Fracture lumbar vertebra - closed - BWC Start: 11-04-2021 Refill Roberto Carlos Lake MD Work Phone: Pain Management Comment on above: Refill Request Start: 09-21-2021 Chart abstracting Lupe leal PA-C Work Phone: Pain Management Start: 08-09-2021 End: 08-09-2021 Subsequent hospital visit by physician Lupe Fortune PA-C Work Phone: [facility] Comment on above: FOLLOW UP Procedures Date Procedure Procedure Detail Performing Clinician Start: 01-23-2024 Urnls dip stick/tabl et rgnt auto w/o microscopy Kimberley Hawley PA-C Work Phone: Start: 02-14-2023 Dxa bone density ismael dy 1/> sites axial skel Nelson Rea MD Work Phone: Start: 01-17-2023 Urnls dip stick/tabl et rgnt auto w/o microscopy Kimberley GILLIAM-Claude Work Phone: Start: 05-31-2022 Echo tthrc r-t 2d w/ wo m-mode complete rest&st Nelson Rea MD Work Phone: Start: 05-19-2022 Radiologic exam ches t 2 views Nelson Rea MD Work Phone: Start: 01-18-2022 Urnls dip stick/tabl et rgnt auto w/o microscopy Kimberley GILLIAM-Claude Work Phone: Start: 06-09-2021 Adult depression scr eening assessment Lupe Fortune PA-C Work Phone: Start: 05-04-2018 Colonoscopy Lupe leal PA-C Work Phone: Plan of Treatment Date Care Activity Detail Author Start: 05-04-2028 Colonoscopy COLONOSCOPY [facility] Start: 05-04-2028 COLORECTAL CANCER SCREENING COLORECTAL CANCER SCREENING [facility] Start: 07-16-2026 [facility] Start: 06-15-2026 LIPID SCREEN LIPID SCREEN [facility] Start: 06-17-2025 DIABETES SCREEN DIABETES SCREEN [facility] Start: 06-17-2025 Diabetes Screening Diabetes Screenin g [facility] Start: 01-28-2025 End: 01-28-2025 Patient encounter procedure 01/28/2025 9:00 AM EDT Office Visit Urology [address] [place] [address] Kimberley Hawley PA-C [address] [place] [address] 1 yr f/u Urology Comment on above: 1 yr f/u Start: 01-22-2025 End: 04-23-2025 Prostate specific Ag [Mass/volume] in Serum or Plasma PROSTATE-SPECIFIC ANTIGEN DIAGNOSTIC Lab Routine BPH with obstruction/lower urinary tract symptoms Expected: 01/22/2025 (Approximate), Expires: 04/23/2025 [facility] Comment on above: Expected: 01/22/2025 (Approximate), Expires: 04/23/2025 Start: 01-15-2025 Annual PCP Team Automation And Controls Instructor sara Disease Visit Annual PCP Team Chronic Disease Visit [facility] Start: 11-13-2024 Annual PCP Team Automation And Controls Instructor sara Disease Visit Annual PCP Team Chronic Disease Visit [facility] Start: 10-16-2024 Annual PCP Team Automation And Controls Instructor sara Disease Visit Annual PCP Team Chronic Disease Visit [facility] Start: 07-16-2024 End: 07-16-2024 Patient encounter procedure 07/16/2024 10:20 AM EDT Office Visit [facility] [place] [address] [place], [place] [address] Vaishali Novak, ELECTROENCEPHALOGRAPH TECHNICIAN.GENERAL FARM HAND [address] [place] [address] 6 month follow up - wellness exam [facility] [place] Comment on above: 6 month follow up - wellness exam Start: 07-13-2024 Annual PCP Team Automation And Controls Instructor sara Disease Visit Annual PCP Team Chronic Disease Visit [facility] Start: 07-13-2024 Urine microalbumin profile DTaP,Tdap,Td Vaccine (1 - Tdap) [facility] Comment on above: Postponed from 03/08 (Declined at this time) Start: 06-15-2024 DIABETES SCREEN DIABETES SCREEN [facility] Start: 04-30-2024 End: 04-30-2024 Patient encounter procedure 04/30/2024 10:00 AM EST Office Visit Pain Management [address] [place] [address] Lupe Fortune PA-C [address] [place] [address] Follow Up Pain Management Comment on above: Follow Up Start: 03-04-2024 Covid-19 Vaccine (8 - 2024-25 season) Covid-19 Vaccine ( season) [facility] Start: 02-15-2024 Annual PCP Team Automation And Controls Instructor sara Disease Visit Annual PCP Team Chronic Disease Visit [facility] Start: 01-30-2024 End: 01-30-2024 Patient encounter procedure 01/30/2024 10:00 AM EDT Office Visit Pain Management [address] [place] [address] Lupe Fortune PA-C [address] [facility] [place] [address] Follow Up Pain Management Comment on above: Follow Up Start: 01-25-2024 End: 01-25-2024 Patient encounter procedure Neurology Comment on above: Sleep apnea, unspeci fied type [G47.30] Confirmed 01/21 SO Start: 01-23-2024 End: 01-23-2024 Patient encounter procedure 01/23/2024 10:30 AM EDT Office Visit Urology [address] [place] [address] Kimberley Hawley PA-C [address] [place] [address] 1 year f/u Urology Comment on above: 1 year f/u Start: 01-18-2024 End: 03-19-2024 Prostate specific Ag [Mass/volume] in Serum or Plasma PSA/PROSTSPECAG DIAG Lab Routine BPH with obstruction/lower urinary tract symptoms Expected: 01/18/2024 (Approximate), Expires: 03/19/2024 [facility] Work Phone: Comment on above: Expected: 01/18/2024 (Approximate), Expires: 03/19/2024 Start: 01-16-2024 End: 01-16-2024 Patient encounter procedure 01/16/2024 10:40 AM EDT Office Visit [facility] [place] [address] [place], [place] [address] Vaishali Novak M, ELECTROENCEPHALOGRAPH TECHNICIAN.GENERAL FARM HAND [address] [place] [address] 6 month follow up [facility] [place] Comment on above: 6 month follow up Start: 12-24-2023 Covid-19 Vaccine ( season) Covid-19 Vaccine ( season) [facility] Start: 12-24-2023 Influenza vaccination Influenza Vacc ine (#1) [facility] Start: 11-15-2023 BP CONTROLLED (<130/80) BP CONTROLLE D (<130/80) [facility] Start: 11-14-2023 End: 11-14-2023 Patient encounter procedure 11/14/2023 9:00 AM EDT Office Visit [facility] [place] [address] [place], [place] [address] Vaishali Novak, ELECTROENCEPHALOGRAPH TECHNICIAN.GENERAL FARM HAND [address] [facility] [place], [place] [address] 1 month bp check - nurse visit [facility] [place] Comment on above: 1 month bp check - n urse visit Start: 10-23-2023 End: 10-23-2023 Patient encounter procedure 10/23/2023 10:00 AM EDT Office Visit Pain Management [address] [place] [address] Roberto Carlos Godwin MD [address] [place] [address] FOLLOW UP 3 [facility] Comment on above: FOLLOW UP 3 [facility] Start: 10-17-2023 End: 10-17-2023 Patient encounter procedure 10/17/2023 10:00 AM EDT Office Visit [facility] Medicine [place] [address] [facility], [place] [id number] Vaishali Novak, ELECTROENCEPHALOGRAPH TECHNICIAN.GENERAL FARM HAND [address] [facility] [place] [address] Nurse Visit bp [facility] [place] Comment on above: Nurse Visit bp Start: 08-18-2023 ANNUAL PCP TEAM SUPERVISOR ACCOUNTING CLERKS ASRA DISEASE VISIT ANNUAL PCP TEAM CHRONIC DISEASE VISIT [facility] Start: 08-18-2023 BP CONTROLLED (<130/80) BP CONTROLLE D (<130/80) [facility] Start: 06-23-2023 Covid-19 Vaccine () Covid-19 Vaccine () [facility] Start: 06-17-2023 End: 09-16-2023 25-hydroxyvitamin D3 [Mass/volume] in Serum or Plasma VITAMIN D 25 HYDROXY Lab Routine Age related osteoporosis, unspecified pathological fracture presence Expected: 06/17/2023, Expires: 09/16/2023 [facility] Work Phone: Comment on above: Expected: 06/17/2023 , Expires: 09/16/2023 Start: 06-17-2023 End: 09-16-2023 CBC panel - Blood by Automated count CBC Lab Routine Primary hypertension Expected: 06/17/2023, Expires: 09/16/2023 [facility] Work Phone: Comment on above: Expected: 06/17/2023 , Expires: 09/16/2023 Start: 06-17-2023 End: 09-16-2023 Comprehensive metabolic 2000 panel - Serum or Plasma COMP METABOLIC PANEL Lab Routine Dyslipidemia Expected: 06/17/2023, Expires: 09/16/2023 [facility] Work Phone: Comment on above: Expected: 06/17/2023 , Expires: 09/16/2023 Start: 06-17-2023 End: 09-16-2023 Lipid 1996 panel - Serum or Plasma LIPID PANEL BASIC Lab Routine Dyslipidemia Expected: 06/17/2023, Expires: 09/16/2023 [facility] Work Phone: Comment on above: Expected: 06/17/2023 , Expires: 09/16/2023 Start: 06-15-2023 ANNUAL PCP TEAM SUPERVISOR ACCOUNTING CLERKS SARA DISEASE VISIT ANNUAL PCP TEAM CHRONIC DISEASE VISIT [facility] Start: 06-15-2023 Urine microalbumin profile [facility] Comment on above: Postponed from 03/08 (Declined at this time) Start: 04-24-2023 Behavioral Health Screening Behavioral Health Screening [facility] Start: 04-24-2023 Depression Assessment Depression Ass essment [facility] Start: 01-18-2023 End: 03-20-2023 Prostate specific Ag [Mass/volume] in Serum or Plasma PSA/PROSTSPECAG DIAG Lab Routine BPH with obstruction/lower urinary tract symptoms Expected: 01/18/2023 (Approximate), Expires: 03/20/2023 [facility] Work Phone: Comment on above: Expected: 01/18/2023 (Approximate), Expires: 03/20/2023 Start: 12-23-2022 Covid-19 Vaccine () Covid-19 Vaccine () [facility] Start: 12-23-2022 Influenza vaccination [facility] Start: 06-19-2022 End: 08-19-2022 CBC panel - Blood by Automated count CBC Lab Routine Tachycardia Expected: 06/19/2022, Expires: 08/19/2022 [facility] Work Phone: Comment on above: Expected: 06/19/2022 , Expires: 08/19/2022 Start: 06-19-2022 End: 08-19-2022 Comprehensive metabolic 2000 panel - Serum or Plasma COMP METABOLIC PANEL Lab Routine Dyslipidemia Expected: 06/19/2022, Expires: 08/19/2022 [facility] Work Phone: Comment on above: Expected: 06/19/2022 , Expires: 08/19/2022 Start: 06-19-2022 End: 08-19-2022 Lipid 1996 panel - Serum or Plasma LIPID PANEL BASIC Lab Routine Dyslipidemia Expected: 06/19/2022, Expires: 08/19/2022 [facility] Work Phone: Comment on above: Expected: 06/19/2022 , Expires: 08/19/2022 Start: 06-09-2022 Adult depression screening assessment DEPRESSION SCREENING [facility] Start: 05-23-2022 COVID-19 VACCINE (6 - Pfizer series) COVID-19 VACCINE (6 - Pfizer series) [facility] Start: 04-24-2022 DEPRESSION ASSESSMENT DEPRESSION ASS ESSMENT [facility] Start: 03-07-2022 Urine microalbumin profile DTAP,TDAP,TD (1 - Tdap) [facility] Comment on above: Postponed from 03/08 (Postponed To Appropriate Date) Start: 12-23-2021 Influenza vaccination INFLUENZA (#1) [facility] Start: 09-27-2021 COVID-19 VACCINE (5 - Booster for Pfizer series) COVID-19 VACCINE (5 - Booster for Pfizer series) [facility] Start: 04-24-2021 DEPRESSION ASSESSMENT DEPRESSION ASS ESSMENT [facility] Start: 03-08-2012 Urine microalbumin profile [facility] Start: 1991 COLOGUARD (FIT-DNA) COLOGUARD (FIT-D NA) [facility] Start: [address] COLONOGRAPHY [facility] Start: 1991 FECAL OCCULT BLOOD FECAL OCCULT BLOO D [facility] Start: 1991 SIGMOIDOSCOPY SIGMOIDOSCOPY [facility] Start: 1964 Anxiety Screening Anxiety Screening [facility] Start: 1964 BP CONTROLLED (<130/80) BP CONTROLLE D (<130/80) [facility] Start: 1964 Depression Screening Depression Scre ening [facility] End: 05-19-2023 ECG COMPLETE ECG COMPLETE ECG Routine Elevated blood pressure reading 1 Occurrences starting 05/19/2022 until 05/19/2023 [facility] Work Phone: Comment on above: 1 Occurrences starti ng 05/19/2022 until 05/19/2023 End: 01-15-2025 HOME SLEEP APNEA TEST (HSAT) HOME SLEEP APNEA TEST (HSAT) Procedures Routine Sleep apnea, unspecified type 1 Occurrences starting 01/16/2024 until 01/15/2025 [facility] Work Phone: Comment on above: 1 Occurrences starti ng 01/16/2024 until 01/15/2025 POST VOID RESIDUAL POST VOID RES IDUAL Procedures Routine BPH with obstruction/lower urinary tract symptoms Ordered: 01/18/2022 [facility] Work Phone: Comment on above: Ordered: 01/18/2022 POST VOID RESIDUAL POST VOID RES IDUAL Procedures Routine BPH with obstruction/lower urinary tract symptoms Ordered: 01/17/2023 [facility] Work Phone: Comment on above: Ordered: 01/17/2023 POST VOID RESIDUAL POST VOID RES IDUAL Procedures Routine BPH with obstruction/lower urinary tract symptoms Ordered: 01/23/2024 [facility] Work Phone: Comment on above: Ordered: 01/23/2024 End: 05-19-2023 STRESS ECHO DOBUTAMINE STRESS ECHO DOBUTAMINE Cardiology Routine LVH (left ventricular hypertrophy) [place] (dyspnea on exertion) 1 Occurrences starting 05/19/2022 until 05/19/2023 [facility] Work Phone: Comment on above: 1 Occurrences starti ng 05/19/2022 until 05/19/2023 [facility] Immunizations Immunization Date Immunization Notes Care Provider Fa [facility] 01-08-2024 COVID-19 vaccine, ag e 12+ yr, bivalent (PFIZER-BIONTDelivery Club) Vaishali Novak APRN.CNP Work Phone: [facility] 02-13-2023 influenza (aIIV4) vaccine, age 65+ yr, quadrivalent, PF (FLUAD QUAD) Nelson Rea MD Work Phone: [facility] Work Phone: 02-13-2023 respiratory syncytia l virus (RSV) vaccine, adjuvanted (AREXVY) Nelson Rea MD Work Phone: [facility] Work Phone: 02-13-2023 influenza virus vaccine, unspecified formulation Roberto Carlos Godwin MD Work Phone: [facility] 09-08-2022 pneumococcal (PCV20) vaccine, 20 valent (PREVNAR 20) Nelson Rea MD Work Phone: [facility] Work Phone: 01-21-2022 COVID-19 booster vaccine, age 12+ yr, bivalent (PFIZER-BIONTECH) Lupe Fortune PA-C Work Phone: [facility] Work Phone: 01-21-2022 influenza (aIIV4) vaccine, age 65+ yr, quadrivalent, PF (FLUAD QUAD) Nelson Rea MD Work Phone: [facility] Work Phone: 01-21-2022 influenza, injectabl e, quadrivalent, contains preservative Lupe Fortune PA-C Work Phone: [facility] Work Phone: 01-21-2022 influenza virus vaccine, unspecified formulation Kimberley Hawley PA-C Work Phone: [facility] 08-02-2021 COVID-19 vaccine, ag e 12+ yr (PFIZER-BIONTECH - PURPLE TOP) Lupe Fortune PA-C Work Phone: [facility] Work Phone: 01-09-2021 influenza (aIIV4) vaccine, age 65+ yr, quadrivalent, PF (FLUAD QUADRIVALENT) Lupe Fortune PA-C Work Phone: [facility] 01-09-2021 influenza, high dose seasonal, preservative-free Lupe Fortune PA-C Work Phone: [facility] Work Phone: 07-16-2020 COVID-19 vaccine, ag e 12+ yr (PFIZER-BIONTECH - PURPLE TOP) Lupe Fortune PA-C Work Phone: [facility] 06-25-2020 COVID-19 vaccine, ag e 12+ yr (PFIZER-BIONTECH - PURPLE TOP) Lupe Fortune PA-C Work Phone: [facility] 01-09-2020 influenza, high dose seasonal, preservative-free Lupe Fortune PA-C Work Phone: [facility] Work Phone: 11-05-2019 zoster vaccine recombinant Lupe GILLIAM-C Work Phone: [facility] Work Phone: 08-27-2019 zoster vaccine recombinant Lupe Fortune PA-C Work Phone: [facility] Work Phone: 01-11-2019 Seasonal trivalent influenza vaccine, adjuvanted, preservative free Lupe GILLIAM-C Work Phone: [facility] Work Phone: 01-18-2018 influenza, high dose seasonal, preservative-free Lupe GILLIAM-C Work Phone: [facility] Work Phone: 10-23-2015 pneumococcal polysaccharide vaccine, 23 valent Lupe GILLIAM-C Work Phone: [facility] 10-22-2014 pneumococcal conjuga te vaccine, 13 valent Lupe GILLIAM-C Work Phone: [facility] 01-16-2013 influenza virus vaccine, unspecified formulation Lupe GILLIAM-C Work Phone: [facility] 03-07-2012 tetanus and diphther ia toxoids, adsorbed, preservative free, for adult use (2 Lf of tetanus toxoid and 2 Lf of diphtheria toxoid) Lupe GILLIAM-C Work Phone: [facility] Work Phone: 12-30-2011 influenza virus vaccine, unspecified formulation Lupe GILLIAM-C Work Phone: [facility] Work Phone: 06-23-2011 zoster vaccine, live Lupe GILLIAM-C Work Phone: [facility] Work Phone: 03-03-2009 influenza virus vaccine, whole virus Lupe GILLIAM-C Work Phone: [facility] 04-24-2000 pneumococcal polysaccharide vaccine, 23 valent Lupe GILLIAM-C Work Phone: [facility] Work Phone: 04-24-2000 tetanus and diphther ia toxoids, adsorbed, preservative free, for adult use (2 Lf of tetanus toxoid and 2 Lf of diphtheria toxoid) Lupe Fortune PA-C Work Phone: [facility] Work Phone: Payers Date Payer Category Payer Unknown MMO MMO MEDICARE SUPPLEMENT [id number] 2019-Present [phone] [address] [place] [address] Indemnity [id number] 2019 Medicare [id number] 1998 Medicare MEDICARE MEDICAR E A AND B [id number] 1998-Present [phone] [place] [address] Medicare [id number] 1998 Medicare MEDICARE MEDICAR E A AND B [id number] 1998-Present [phone] [place] [address] Medicare [id number] 1998 Medicare [id number] 1979 Unknown [facility] MCO [id number] 1979-Present [phone] [address] [place] [address] [facility] [id number] 1979 Unknown [id number] 1979 Unknown [id number] Social History Date Type Detail Facility Start: 03-07-2012 End: 05-19-2022 Tobacco smoking status NHIS Never smoked tobacco [facility] Start: 06-09-2021 End: 01-30-2024 Alcohol intake Current drinker of alcohol (finding) [facility] Start: 06-03-2020 End: 06-09-2021 History SDOH Alcohol Frequency 2 [facility] Start: 06-03-2020 End: 06-09-2021 History SDOH Alcohol Std Drinks 1 [facility] Start: 05-23-2019 History SDOH Alcohol Comment rare wine [facility] Start: 06-03-2020 End: 06-09-2021 History SDOH Social Connections Phone 5 [facility] Start: 06-09-2021 History SDOH Social Connections Get Together 4 [facility] Start: 06-09-2021 History SDWV Social Connections Meetings 3 [facility] Start: 06-03-2020 Education 17 [facility] Start: 1945 Sex Assigned At Male [facility] Start: 10-30-2021 End: 02-09-2022 Exposure to SARS-CoV-2 (event) Not sure [facility] Start: 03-07-2012 End: 05-19-2022 Tobacco use and exposure Smokeless tobacco non-user [facility] Work Phone: Start: 06-09-2021 End: 11-14-2022 History of Social function [facility] Work Phone: Start: 06-09-2021 End: 11-14-2022 Social connection and isolation panel [facility] Work Phone: Do you belong to any clubs or organizations such as anglican groups, unions, fraternal or athletic groups, or school groups? Yes [facility] Work Phone: Are you now , , , , never or living with a partner? [facility] Work Phone: How often to you hav e a drink containing alcohol? Monthly or less [facility] Work Phone: How many standard dr inks containing alcohol do you have on a typical day? 1 or 2 [facility] Work Phone: How often do you hav e 6 or more drinks on 1 occasion? Never [facility] Work Phone: How hard is it for y ou to pay for the very basics like food, housing, medical care, and heating Not hard at all [facility] Do you feel stress - tense, restless, nervous, or anxious, or unable to sleep at night because your mind is troubled all the time - these days [OSQ] Not at all [facility] Work Phone: (I/We) worried wheth er (my/our) food would run out before (I/we) got money to buy more. Never true [facility] In the past 12 month s, was there a time when you were not able to pay the mortgage or rent on time? No [facility] Start: 06-03-2020 Gender identity Identifies as male gender (finding) [facility] Start: 06-03-2020 Sexual orientation Heterosexual (finding) [facility] Start: 01-17-2023 End: 01-16-2024 Alcohol intake Ex-drinker (finding) [facility] Start: 01-23-2024 Alcohol Comment Socially [facility] Clinical Notes 02-17-2011 to 02-12-2024 Telephone Encounter - Meagan Mcleod LPN - 02/12/2024 4:18 PM EDTTelephone Encounter - Meagan Mcleod LPN - 02/12/2024 4:18 PM EDTTelephone Encounter - Mikel Rios MA - 02/09/2024 9:41 AM EDT Note Date & Type Note Facility 02-12-2024 Telephone encounter Note Sleep study order and pertinent information faxed to [facility] per pt request. Meagan Mcleod LPN [facility] 02-12-2024 Miscellaneous Notes Sleep study order and pertinent information faxed to [facility] per pt request. Meagan Mcleod LPN Patient states yes, he would like sleep study done locally at [facility]. Please place order and send to [facility]. Thank you. Left message to call office. 02/09/2024 9:41 AM He may want it done locally at [facility], will wait to put orders in for this reason Vaishali Novak APRN.GENERAL FARM HAND Before calling pt, please put in orders for the sleep study. Karma Hernandez LPN ----- Message from Vaishali Novak APRN.DOMINGA sent at 02/09/2024 6:21 AM EDT ----- Please let the patient know the home sleep study indicated sleep apnea but the specialist recommends in lab sleep study for further evaluation Vaishali Novak APRN.GENERAL FARM HAND documented in this encounter [facility] 02-12-2024 Telephone encounter Note Patient states yes, he would like sleep study done locally at [facility]. Please place order and send to [facility]. Thank you. [facility] 02-09-2024 Telephone encounter Note Left message to call office. 02/09/2024 9:41 AM [facility] 02-09-2024 Telephone encounter Note He may want it done locally at [facility], will wait to put orders in for this reason Vaishali Novak APRN.GENERAL FARM HAND [facility] 02-09-2024 Telephone encounter Note Before calling pt, please put in orders for the sleep study. Karma Hernandez LPN [facility] 02-09-2024 Telephone encounter Note ----- Message from Vaishali Novak APRN.GENERAL FARM HAND sent at 02/09/2024 6:21 AM EDT ----- Please let the patient know the home sleep study indicated sleep apnea but the specialist recommends in lab sleep study for further evaluation Vaishali Nvoak APRN.GENERAL FARM HAND [facility] 01-30-2024 Note HNO ID: [id number] Author: ?, ?, ? Service: ? Author Type: ? Type: Progress Notes Filed: 01/30/2024 10:55 Note Text: Sleep Study Check-In Documentation Date: January 30, 2024 Name: Marty Antunez Comments: HST was returned in working order with all sleep questionnaires [facility] 01-30-2024 History of Presen t illness Narrative Sleep Study Check-In Documentation Date: January 30, 2024 Name: Marty Antunez Comments: HST was returned in working order with all sleep questionnaires [facility]# [id number] , date shipped out 01/24 Tracking mailout:[id number] [employer] Tracking return: [id number] January 24, 2024 Standing PSG Orders signed in the last 90 days None Future PSG Orders signed in the last 90 days Ordered Auth. provider HOME SLEEP APNEA TEST (HSAT) [[id number]] 01/16/24 Vaishali Novak, ELECTROENCEPHALOGRAPH TECHNICIAN.GENERAL FARM HAND Assoc. 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 Indications for study: BARBARA suspected without comorbid medical or sleep disorders Sleep study to be performed: Home Sleep Apnea Test (HSAT) Special instructions: None-follow laboratory protocol Orquidea Varner - Sleep Medicine Staff Note: I have read the above protocol, edited as needed, and agree to the plan. Lazara Cadena III, PhD 4:38 PM, 01/25/2024 January 23, 2024 An order has been received for Home Sleep Apnea Test (HSAT) from Vaishali Blanco, [place].carlos alberto ORR. [facility] Staff. Visit prep complete. Comments :No The sleep study is scheduled for 01-25-24. Insurance: Payor: MEDICARE / Plan: MEDICARE A AND B / Product Type: Medicare / Payer/Plan Subscr Sex Relation Sub. Ins. ID Effective Group Num 1. [facility]* MARTY ANTUNEZ 1945 Male Self [id number] 08/16/1978 [address] 2. MEDICARE - [place]* MARTY ANTUNEZ 1945 Male Self [id number] 09/22/1998 DOL [id number] [address] [address] Gabriella Christensen documented in this encounter [facility] 01-30-2024 Instructions Lupe Fortune PA-C - 01/30/2024 10:03 AM EDT The [facility] report has been reviewed and is consistent with the patients medical history and medication intake. Continue with the gabapentin, celecoxib, and tizandine Continue with core strengthening and range of motion exercises FU in the office in 3-4 months. Discuss your blood pressure with your family doctor - BP 154/80 Supervising Physician - Dr. Driss Malik MD documented in this encounter [facility] 01-30-2024 Note HNO ID: [id number] Author: LUPE FORTUNE PA-C Service: ? Author Type: Physician Home Health Care Social Worker Type: Progress Notes Filed: 01/30/2024 10:17 Note Text: This note was created using Xquvariter. Subjective Marty Antunez is a 78 year old male. The patient primarily being seen for back pain - [facility] Patient was last seen on: 10/23/23 At that time, the treatment plan was: see notes Current Meds: gabapentin - two nights ago, celebrex - yesterday, tizanidine - prn Efficacy: help Side effects: denies TENS unit: didn't help How often used: Benefit: Physical Therapy: years ago, exercises at home on his own Last UDS: not on narcotics Last injection: OARRS reviewed At the present time, the patient reports benefit with his present analgesic therapy. He denies any adverse effects. Since his previous visit, he denies any hospitalizations or ER visits. Otherwise, he has nothing further to discuss at this time. 01/23/2024 01/30/2024 INTAKE PAIN ASSESSMENT Are you having pain associated with your visit today? No Yes, Provider notified Pain Scales Verbal (Numeric Rating or Visual Analog Scale) Pain Level 3 Pain Location Back Description Aching Duration Amount of Time 44 Duration Units Years Frequency Continuous Intervention/Comfort measure Heat;Medication;Positioning Back Pain Pertinent negatives include no fever. 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 Spinal cord injury 08/16/1979 Fall at work, left leg atrophy Urinary retention 02/17/2011 PAST SURGICAL HISTORY Procedure Laterality Date COLONOSCOPY FLX DX W/COLLJ SPEC WHEN PFRMD 11/2003 Colonoscopy COLONOSCOPY FLX DX W/COLLJ SPEC WHEN PFRMD 02/23/2012 Colonoscopy COLONOSCOPY FLX DX W/COLLJ SPEC WHEN PFRMD 05/04/2018 Colonoscopy NEUROPLASTY AND/TRANSPOS MEDIAN NRV CARPAL TUNNE 2009 Carpal tunnel decomp, LEFT NEUROPLASTY AND/TRANSPOSITION ULNAR NERVE WRIST 2009 LEFT OPEN REPAIR OF ROTATOR CUFF ACUTE 1992 Rotator cuff repair, LEFT TONSILLECTOMY AND ADENOIDECTOMY Social History Tobacco Use Smoking status: Never Smokeless tobacco: Never Vaping Use Vaping status: Never Used Substance Use Topics Alcohol use: Yes Comment: Socially Drug use: Never Review of Systems Constitutional: Negative for fever and unexpected weight change. Musculoskeletal: Positive for back pain. +back pain, joint pain, numbness, tingling, muscle cramps/weakness, stiffness, arthritis, sciatica, and leg pain with exertion. Objective BP 154/80 (BP Site: Left Arm, BP Position: Sitting) Pulse 79 Resp 16 SpO2 99% Physical Exam Vitals and nursing note reviewed. Constitutional: Appearance: Normal appearance. He is well-developed, well-groomed and normal weight. HENT: Head: Normocephalic and atraumatic. Right Ear: Hearing normal. Left Ear: Hearing normal. Eyes: Conjunctiva/sclera: Conjunctivae normal. Musculoskeletal: Comments: He is using his cane for assistance with his gait. There is tenderness to palpation in the lumbar region with spasms in the trapezius, paraspinal, and latissimus dorsi muscles. Strength is 4-5/5 in the LLE. He has atrophy noted in the LLE. Sensation is decreased in the lateral LLE, worse around the proximal lateral thigh. SLR is negative. He has a brace present on the left ankle. Neurological: Mental Status: He is alert and oriented to person, place, and time. Psychiatric: Attention and Perception: Attention and perception normal. Mood and Affect: Mood and affect normal. Speech: Speech normal. Behavior: Behavior normal. Behavior is cooperative. Thought Content: Thought content normal. Judgment: Judgment normal. Assessment and Plan ASSESSMENT/PLAN: 1. Degeneration of intervertebral disc of lumbosacral region with discogenic back pain - ICD9: 722.52, ICD10: M51.370 (primary diagnosis) 2. Pelvic Fracture NOS - closed - [facility] - ICD9: [id number], ICD10: S32.9XXA 3. Fracture lumbar vertebra - closed - [facility] - ICD9: 805.4, ICD10: S32.020A PLAN: The OARRS report has been reviewed and is consistent with the patients medical history and medication intake. Continue with the gabapentin, celecoxib, and tizandine Continue with core strengthening and range of motion exercises FU in the office in 3-4 months. Discuss your blood pressure with your family doctor - BP 154/80 Lupe Fortune PA-C [facility] 01-30-2024 History of Presen t illness Narrative This note was created using Partlyter. Subjective Marty Antunez is a 78 year old male. The patient primarily being seen for back pain - [facility] Patient was last seen on: 10/23/23 At that time, the treatment plan was: see notes Current Meds: gabapentin - two nights ago, celebrex - yesterday, tizanidine - prn Efficacy: help Side effects: denies TENS unit: didn't help How often used: Benefit: Physical Therapy: years ago, exercises at home on his own Last UDS: not on narcotics Last injection: OARRS reviewed At the present time, the patient reports benefit with his present analgesic therapy. He denies any adverse effects. Since his previous visit, he denies any hospitalizations or ER visits. Otherwise, he has nothing further to discuss at this time. 01/23/2024 01/30/2024 INTAKE PAIN ASSESSMENT Are you having pain associated with your visit today? No Yes, Provider notified Pain Scales Verbal (Numeric Rating or Visual Analog Scale) Pain Level 3 Pain Location Back Description Aching Duration Amount of Time 44 Duration Units Years Frequency Continuous Intervention/Comfort measure Heat;Medication;Positioning Back Pain Pertinent negatives include no fever. 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 Spinal cord injury 08/16/1979 Fall at work, left leg atrophy Urinary retention 02/17/2011 PAST SURGICAL HISTORY Procedure Laterality Date COLONOSCOPY FLX DX W/COLLJ SPEC WHEN PFRMD 11/2003 Colonoscopy COLONOSCOPY FLX DX W/COLLJ SPEC WHEN PFRMD 02/23/2012 Colonoscopy COLONOSCOPY FLX DX W/COLLJ SPEC WHEN PFRMD 05/04/2018 Colonoscopy NEUROPLASTY &/TRANSPOS MEDIAN NRV CARPAL TUNNE 2009 Carpal tunnel decomp, LEFT NEUROPLASTY &/TRANSPOSITION ULNAR NERVE WRIST 2009 LEFT OPEN REPAIR OF ROTATOR CUFF ACUTE 1992 Rotator cuff repair, LEFT TONSILLECTOMY & ADENOIDECTOMY <AGE 13 1950 Social History Tobacco Use Smoking status: Never Smokeless tobacco: Never Vaping Use Vaping status: Never Used Substance Use Topics Alcohol use: Yes Comment: Socially Drug use: Never Review of Systems Constitutional: Negative for fever and unexpected weight change. Musculoskeletal: Positive for back pain. +back pain, joint pain, numbness, tingling, muscle cramps/weakness, stiffness, arthritis, sciatica, and leg pain with exertion. Objective BP 154/80 (BP Site: Left Arm, BP Position: Sitting) Pulse 79 Resp 16 SpO2 99% Physical Exam Vitals and nursing note reviewed. Constitutional: Appearance: Normal appearance. He is well-developed, well-groomed and normal weight. HENT: Head: Normocephalic and atraumatic. Right Ear: Hearing normal. Left Ear: Hearing normal. Eyes: Conjunctiva/sclera: Conjunctivae normal. Musculoskeletal: Comments: He is using his cane for assistance with his gait. There is tenderness to palpation in the lumbar region with spasms in the trapezius, paraspinal, and latissimus dorsi muscles. Strength is 4-5/5 in the LLE. He has atrophy noted in the LLE. Sensation is decreased in the lateral LLE, worse around the proximal lateral thigh. SLR is negative. He has a brace present on the left ankle. Neurological: Mental Status: He is alert and oriented to person, place, and time. Psychiatric: Attention and Perception: Attention and perception normal. Mood and Affect: Mood and affect normal. Speech: Speech normal. Behavior: Behavior normal. Behavior is cooperative. Thought Content: Thought content normal. Judgment: Judgment normal. Assessment and Plan ASSESSMENT/PLAN: 1. Degeneration of intervertebral disc of lumbosacral region with discogenic back pain - ICD9: 722.52, ICD10: M51.370 (primary diagnosis) 2. Pelvic Fracture NOS - closed - [facility] - ICD9: [id number], ICD10: S32.9XXA 3. Fracture lumbar vertebra - closed - [facility] - ICD9: 805.4, ICD10: S32.020A PLAN: The OARRS report has been reviewed and is consistent with the patients medical history and medication intake. Continue with the gabapentin, celecoxib, and tizandine Continue with core strengthening and range of motion exercises FU in the office in 3-4 months. Discuss your blood pressure with your family doctor - BP 154/80 Lupe Fortune PA-C documented in this encounter [facility] 01-25-2024 Note HNO ID: [id number] Author: ?, ?, ? Service: ? Author Type: ? Type: Progress Notes Filed: 01/30/2024 10:55 Note Text: Nomad# [id number] , date shipped out 01/24 Tracking mailout:[id number] [employer] Tracking return: [id number] [facility] 01-24-2024 Note HNO ID: [id number] Author: LAZARA CADENA III, PhD Service: ? Author Type: Physician Type: Progress Notes Filed: 01/30/2024 10:55 Note Text: January 24, 2024 Standing PSG Orders signed in the last 90 days None Future PSG Orders signed in the last 90 days Ordered Auth. provider HOME SLEEP APNEA TEST (HSAT) [[id number]] 01/16/24 Vaishali Novak, ELECTROENCEPHALOGRAPH TECHNICIAN.[employer]. diagnoses: Sleep apnea, unspecified type [G47.30] Q: Indications: A: Obstructive sleep apnea Q: STOP-BANG conditions - Select All That Apply: A: GENDER = male A2: AGE > 50 A3: high blood PRESSURE Q: Current use of supplemental oxygen during sleep period?: A: No All Prior Sleep Studies (past 365 days) 01/16/2024 10:57 Sleep Studies HOME SLEEP APNEA TEST (HSAT) HOME SLEEP APNEA TEST (HSAT) Order Status: Ordered, Future Expires: 01/15/25 BMI Readings from Last 2 Encounters: 01/23/24 : 24.02 kg/m? 01/16/24 : 24.14 kg/m? 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 Indications for study: BARBARA suspected without comorbid medical or sleep disorders Sleep study to be performed: Home Sleep Apnea Test (HSAT) Special instructions: None-follow laboratory protocol Orquidea Ocampo Tech - Sleep Medicine Staff Note: I have read the above protocol, edited as needed, and agree to the plan. Lazara Cadena III, PhD 4:38 PM, 01/25/2024 [facility] 01-23-2024 Note HNO ID: [id number] Author: ?, ?, ? Service: ? Author Type: ? Type: Progress Notes Filed: 01/30/2024 10:55 Note Text: January 23, 2024 An order has been received for Home Sleep Apnea Test (HSAT) from Dr. Novak, Vaishali M, ELECTROENCEPHALOGRAPH TECHNICIAN.[employer] , a B. [facility] Staff. Visit prep complete. Comments :No The sleep study is scheduled for 01-25-24. Insurance: Payor: MEDICARE / Plan: MEDICARE A AND B / Product Type: Medicare / Payer/Plan Subscr Sex Relation Sub. Ins. ID Effective Group Num 1. [facility]* MARTY ANTUNEZ 1945 Male Self [id number] 08/16/1978 [address] 2. MEDICARE - [place]* MARTY ANTUNEZ 1945 Male Self [id number] 09/22/1998 DOL [id number] [address] Gabriella MurryKamila [facility] 01-23-2024 Instructions Kimberley Hawley PA-C - 01/23/2024 11:27 AM EDT > Flomax sent 01/01/2024 > PSA was 3.01 > PVR - 43 ml > 1 year Appt w/ B. MARIANO Hawley, JOYCE TOTH with PSA prior documented in this encounter [facility] 01-23-2024 Note HNO ID: [id number] Author: KIMBERLEY HAWLEY PA-C Service: ? Author Type: Physician Home Health Care Social Worker Type: Progress Notes Filed: 01/23/2024 11:27 Note Text: [facility] EST[facility]ISHED PATIENT CLINIC NOTE Some elements copied from his previous note, which have been updated where appropriate, and all reflect current medical decision making from date of this visit. NAME: Marty Antunez CHIEF COMPLAINT: BPH PSA Follow up HISTORY OF PRESENT ILLNESS: Marty Antunez is a 78 year old Male with BPH w/LUTS presenting for annual follow up The patient reports doing well , PVR- 43 ml PSA -3.01 mild increase only Overall doing well no new Co's LABS: Hematocrit (%) Date Value 07/17/2023 38.7 06/17/2022 38.8 06/15/2021 43.1 12/02/2016 44.4 10/22/2013 43.8 PSA (ng/mL) Date Value 01/18/2024 3.01 01/11/2023 2.53 01/14/2022 2.58 01/19/2021 2.69 04/04/2020 2.54 04/04/2019 2.82 01/02/2014 1.93 No results found for: TESTOST MEDICATIONS: tamsulosin (FLOMAX) 0.4 mg Take 1 capsule by mouth once daily. losartan (COZAAR) 50 mg tablet Take 1 tablet by mouth once daily. celecoxib (CELEBREX) 200 mg capsule Take 1 capsule by mouth once daily. gabapentin (NEURONTIN) 300 mg capsule Take 1 capsule by mouth two times a day for 120 days. tiZANidine (ZANAFLEX) 4 mg tablet Take 1 tablet by mouth every 8 hours as needed. atorvastatin (LIPITOR) 20 mg tablet Take 1 tablet by mouth daily at bedtime. For cholesterol. alendronate (FOSAMAX) 70 mg tablet Take 1 tablet by mouth one time a week. Take with a full glass of water, on an empty stomach; do NOT lie down for 30minutes. latanoprost, PF, 0.005 % drop Use 1 Drop in eyes daily at bedtime. Omeprazole Magnesium (PRILOSEC OTC) 20 mg tablet Take 1 tablet by mouth daily at bedtime. 1/2 hr before meal. melatonin 10 mg cap Take 1 capsule by mouth at bedtime as needed. Ascorbic Acid 1,000 mg tablet Take 1 tablet by mouth once daily. PAST MEDICAL HISTORY: PAST MEDICAL HISTORY Diagnosis Date BPH with obstruction/lower urinary tract symptoms 09/20/2007 Chronic back pain 03/08/2012 DDD (degenerative disc disease), lumbar Depression Diverticulosis of colon (without mention of hemorrhage) History of multiple trauma 08/16/1979 work related, [facility] History of spinal cord injury, lumbar, left leg atrophy and paresis. 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 All other systems reviewed and are negative PHYSICAL EXAMINATION: Blood pressure 144/76, pulse 86, temperature 36.7 ?C (98.1 ?F), temperature source Temporal, resp. rate 14, weight 71.7 kg (158 lb), SpO2 98%. GENERAL: WNL nutrition, no deformities, healthy appearing PROBLEM LIST REVIEW: Yes LABS: Results for orders placed or performed in visit on 01/23/24 UA DIP, URINE (POC) Result Value Ref Range GLUCOSE UA (POCT) Negative Negative mg/dL BILIRUBIN UA (POCT) Negative Negative KETONE UA (POCT) Negative Negative mg/dL SPECIFIC GRAVITY UA (POCT) 1.020 1.005 - 1.030 HEMOGLOBIN/BLOOD UA (POCT) Negative Negative PH UA (POCT) 6.5 4.5 - 8.0 PROTEIN UA (POCT) Negative Negative mg/dL UROBILINOGEN UA (POCT) 0.2 Normal E.U./dL NITRITE UA (POCT) Negative Negative LEUKOCYTES UA (POCT) Negative Negative COLOR UA (POCT) Yellow CLARITY UA (POCT) Clear PVR 43 ml IMPRESSION/PLAN: 1. BPH with obstruction/lower urinary tract symptoms - ICD9: 600.01, 599.69, ICD10: N40.1, N13.8 > Refilled Flomax > PSA - 3.01 > 1 year Appt w/ Ophelia. MARIANO Hawley, NAVNEET, PAKojo with PSA prior [facility] 01-23-2024 History of Presen t illness Narrative Images from the original note were not included. [facility] EST[facility]ISHED PATIENT CLINIC NOTE Some elements copied from his previous note, which have been updated where appropriate, and all reflect current medical decision making from date of this visit. NAME: Marty Antunez CHIEF COMPLAINT: BPH PSA Follow up HISTORY OF PRESENT ILLNESS: Marty Antunez is a 78 year old Male with BPH w/LUTS presenting for annual follow up The patient reports doing well , PVR- 43 ml PSA -3.01 mild increase only Overall doing well no new Co's LABS: Hematocrit (%) Date Value 07/17/2023 38.7 06/17/2022 38.8 06/15/2021 43.1 12/02/2016 44.4 10/22/2013 43.8 PSA (ng/mL) Date Value 01/18/2024 3.01 01/11/2023 2.53 01/14/2022 2.58 01/19/2021 2.69 04/04/2020 2.54 04/04/2019 2.82 01/02/2014 1.93 No results found for: TESTOST MEDICATIONS: tamsulosin (FLOMAX) 0.4 mg Take 1 capsule by mouth once daily. losartan (COZAAR) 50 mg tablet Take 1 tablet by mouth once daily. celecoxib (CELEBREX) 200 mg capsule Take 1 capsule by mouth once daily. gabapentin (NEURONTIN) 300 mg capsule Take 1 capsule by mouth two times a day for 120 days. tiZANidine (ZANAFLEX) 4 mg tablet Take 1 tablet by mouth every 8 hours as needed. atorvastatin (LIPITOR) 20 mg tablet Take 1 tablet by mouth daily at bedtime. For cholesterol. alendronate (FOSAMAX) 70 mg tablet Take 1 tablet by mouth one time a week. Take with a full glass of water, on an empty stomach; do NOT lie down for 30minutes. latanoprost, PF, 0.005 % drop Use 1 Drop in eyes daily at bedtime. Omeprazole Magnesium (PRILOSEC OTC) 20 mg tablet Take 1 tablet by mouth daily at bedtime. 1/2 hr before meal. melatonin 10 mg cap Take 1 capsule by mouth at bedtime as needed. Ascorbic Acid 1,000 mg tablet Take 1 tablet by mouth once daily. PAST MEDICAL HISTORY: PAST MEDICAL HISTORY Diagnosis Date BPH with obstruction/lower urinary tract symptoms 09/20/2007 Chronic back pain 03/08/2012 DDD (degenerative disc disease), lumbar Depression Diverticulosis of colon (without mention of hemorrhage) History of multiple trauma 08/16/1979 work related, [facility] History of spinal cord injury, lumbar, left leg atrophy and paresis. 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 All other systems reviewed and are negative PHYSICAL EXAMINATION: Blood pressure 144/76, pulse 86, temperature 36.7 C (98.1 F), temperature source Temporal, resp. rate 14, weight 71.7 kg (158 lb), SpO2 98%. GENERAL: WNL nutrition, no deformities, healthy appearing PROBLEM LIST REVIEW: Yes LABS: Results for orders placed or performed in visit on 01/23/24 UA DIP, URINE (POC) Result Value Ref Range GLUCOSE UA (POCT) Negative Negative mg/dL BILIRUBIN UA (POCT) Negative Negative KETONE UA (POCT) Negative Negative mg/dL SPECIFIC GRAVITY UA (POCT) 1.020 1.005 - 1.030 HEMOGLOBIN/BLOOD UA (POCT) Negative Negative PH UA (POCT) 6.5 4.5 - 8.0 PROTEIN UA (POCT) Negative Negative mg/dL UROBILINOGEN UA (POCT) 0.2 Normal E.U./dL NITRITE UA (POCT) Negative Negative LEUKOCYTES UA (POCT) Negative Negative COLOR UA (POCT) Yellow CLARITY UA (POCT) Clear PVR 43 ml IMPRESSION/PLAN: 1. BPH with obstruction/lower urinary tract symptoms - ICD9: 600.01, 599.69, ICD10: N40.1, N13.8 > Refilled Flomax > PSA - 3.01 > 1 year Appt w/ B. MARIANO Hawley MT, PA-C with PSA prior Verified name and date of . CC Post Void Residual HPI: Marty Antunez is a 78 year old male. The patient is here now for an appointment with MARIANO Lopez MT, PA-COV. Procedure: Explained procedure to patient and verbalizes understanding. Performed a PVR. Patient urinated and instructed to empty bladder as much as possible just prior to having PVR done using bladder ultrasound scanner. Results of scan: 43 mL The patient tolerated the procedure well. Plan: Appointment with Kimberley. documented in this encounter [facility] 01-23-2024 Note HNO ID: [id number] Author: JESSICA FRANK LPN Service: ? Author Type: LICENSED NURSE Type: Progress Notes Filed: 01/23/2024 11:27 Note Text: Verified name and date of . CC Post Void Residual HPI: Marty Antunez is a 78 year old male. The patient is here now for an appointment with MARIANO Lopez MT, HARDY. Procedure: Explained procedure to patient and verbalizes understanding. Performed a PVR. Patient urinated and instructed to empty bladder as much as possible just prior to having PVR done using bladder ultrasound scanner. Results of scan: 43 mL The patient tolerated the procedure well. Plan: Appointment with Kimberley. [facility] 01-19-2024 Telephone encounter Note Psa completed. [facility] 01-19-2024 Miscellaneous Notes Psa completed. documented in this encounter [facility] 01-16-2024 Note HNO ID: [id number] Author: VAISHALI NOVAK APRN.[employer] Service: ? Author Type: Nurse Practitioner Type: Progress Notes Filed: 01/16/2024 11:13 Note Text: CC: Patient presents with: F/U 6 months HPI Marty Antunez is a 78 year old male who presents today for above. HTN-Medication changes:No Taking all medications as prescribed: Yes Side effects: No Home BP's: No Denies: headache, chest pain, palpitations, dyspnea, and peripheral edema. Last 3 Encounter BP Readings: Date: BP: 01/16/2024 168/90 11/14/2023 146/94 10/23/2023 160/81 GERD: Symptoms controlled with Prilosec. Denies heartburn/reflux, dysphagia, bloating, abdominal pain, black/bloody stools, vomiting, decreased appetite. His relish maker raised concerns about worsening glaucoma despite treatment with drops and normal pressures. He mentioned the possibility of sleep apnea as the cause. Denies snoring, un-refreshed sleep, insomnia, excessive daytime drowsiness. Review of Systems See HPI PAST MEDICAL HISTORY Diagnosis Date BPH with obstruction/lower urinary tract symptoms 09/20/2007 Chronic back pain 03/08/2012 DDD (degenerative disc disease), lumbar Depression Diverticulosis of colon (without mention of hemorrhage) History of multiple trauma 08/16/1979 work related, [facility] History of spinal cord injury, lumbar, left leg atrophy and paresis. 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 Spinal cord injury 08/16/1979 Fall at work, left leg atrophy Urinary retention 02/17/2011 PAST SURGICAL HISTORY Procedure Laterality Date COLONOSCOPY FLX DX W/COLLJ SPEC WHEN PFRMD 11/2003 Colonoscopy COLONOSCOPY FLX DX W/COLLJ SPEC WHEN PFRMD 02/23/2012 Colonoscopy COLONOSCOPY FLX DX W/COLLJ SPEC WHEN PFRMD 05/04/2018 Colonoscopy NEUROPLASTY AND/TRANSPOS MEDIAN NRV CARPAL TUNNE 2009 Carpal tunnel decomp, LEFT NEUROPLASTY AND/TRANSPOSITION ULNAR NERVE WRIST 2008 LEFT OPEN REPAIR OF ROTATOR CUFF ACUTE 1992 Rotator cuff repair, LEFT TONSILLECTOMY AND ADENOIDECTOMY ALLERGIES Dust Mites MEDICATIONS tamsulosin (FLOMAX) 0.4 mg Take 1 capsule by mouth once daily. losartan (COZAAR) 50 mg tablet Take 1 tablet by mouth once daily. celecoxib (CELEBREX) 200 mg capsule Take 1 capsule by mouth once daily. gabapentin (NEURONTIN) 300 mg capsule Take 1 capsule by mouth two times a day for 120 days. tiZANidine (ZANAFLEX) 4 mg tablet Take 1 tablet by mouth every 8 hours as needed. atorvastatin (LIPITOR) 20 mg tablet Take 1 tablet by mouth daily at bedtime. For cholesterol. alendronate (FOSAMAX) 70 mg tablet Take 1 tablet by mouth one time a week. Take with a full glass of water, on an empty stomach; do NOT lie down for 30minutes. latanoprost, PF, 0.005 % drop Use 1 Drop in eyes daily at bedtime. Omeprazole Magnesium (PRILOSEC OTC) 20 mg tablet Take 1 tablet by mouth daily at bedtime. 1/2 hr before meal. melatonin 10 mg cap Take 1 capsule by mouth at bedtime as needed. Ascorbic Acid 1,000 mg tablet Take 1 tablet by mouth once daily. FAMILY HISTORY Problem Relation Age of Onset Heart Mother CHF, dec. GI Mother GI bleed other (Other) Father Pulmonary fibrosis Colon Cancer Paternal Grandmother None Brother None Brother Social History Tobacco Use Smoking status: Never Smokeless tobacco: Never Vaping Use Vaping status: Never Used Substance Use Topics Alcohol use: Not Currently Drug use: Never BP 136/82 Pulse 79 Resp 18 Wt 72 kg (158 lb 11.7 oz) SpO2 97% BMI 24.14 kg/m? Physical Exam Vitals reviewed. Constitutional: Appearance: Normal appearance. Cardiovascular: Rate and Rhythm: Normal rate and regular rhythm. Pulses: Normal pulses. Heart sounds: Normal heart sounds. No murmur heard. Pulmonary: Effort: Pulmonary effort is normal. Breath sounds: Normal breath sounds. No wheezing, rhonchi or rales. Neurological: Mental Status: He is alert. Psychiatric: Mood and Affect: Mood normal. Health maintenance reviewed with patient: Depression Screening Never done Anxiety Screening Never done BP Controlled (<130/80) Never done Covid-19 Vaccine() due on 12/24/2023 DTaP,Tdap,Td Vaccine(1 - Tdap) due on 07/13/2024 Annual PCP Team Chronic Disease Visit due on 11/13/2024 Diabetes Screening due on 07/16/2026 Influenza Vaccine Completed RSV Vaccine Completed Hepatitis C Screening Completed Shingrix Vaccine Completed Pneumococcal Vaccine: 65+ Completed Colorectal Cancer Screening Discontinued Advance Directive Discussion Discontinued DATA REVIEWED: Most recent labs ASSESSMENT/PLAN: 1. Sleep apnea, unspecified type - ICD9: 780.57, ICD10: G47.30 (primary diagnosis) Import/Export Administrator recommended testing for sleep apnea due to worsening glaucoma. Patient meets criteria for testing. - HOME SLEEP APNEA TEST (HSAT) 2. Prim (more content not included)... [facility] 01-16-2024 History of Presen t illness Narrative CC: Patient presents with: F/U 6 months HPI Marty Antunez is a 78 year old male who presents today for above. HTN-Medication changes:No Taking all medications as prescribed: Yes Side effects: No Home BP's: No Denies: headache, chest pain, palpitations, dyspnea, and peripheral edema. Last 3 Encounter BP Readings: Date: BP: 01/16/2024 168/90 11/14/2023 146/94 10/23/2023 160/81 GERD: Symptoms controlled with Prilosec. Denies heartburn/reflux, dysphagia, bloating, abdominal pain, black/bloody stools, vomiting, decreased appetite. His relish maker raised concerns about worsening glaucoma despite treatment with drops and normal pressures. He mentioned the possibility of sleep apnea as the cause. Denies snoring, un-refreshed sleep, insomnia, excessive daytime drowsiness. Review of Systems See HPI PAST MEDICAL HISTORY Diagnosis Date BPH with obstruction/lower urinary tract symptoms 09/20/2007 Chronic back pain 03/08/2012 DDD (degenerative disc disease), lumbar Depression Diverticulosis of colon (without mention of hemorrhage) History of multiple trauma 08/16/1979 work related, [facility] History of spinal cord injury, lumbar, left leg atrophy and paresis. 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 Spinal cord injury 08/16/1979 Fall at work, left leg atrophy Urinary retention 02/17/2011 PAST SURGICAL HISTORY Procedure Laterality Date COLONOSCOPY FLX DX W/COLLJ SPEC WHEN PFRMD 11/2003 Colonoscopy COLONOSCOPY FLX DX W/COLLJ SPEC WHEN PFRMD 02/23/2012 Colonoscopy COLONOSCOPY FLX DX W/COLLJ SPEC WHEN PFRMD 05/04/2018 Colonoscopy NEUROPLASTY &/TRANSPOS MEDIAN NRV CARPAL TUNNE 2008 Carpal tunnel decomp, LEFT NEUROPLASTY &/TRANSPOSITION ULNAR NERVE WRIST 2008 LEFT OPEN REPAIR OF ROTATOR CUFF ACUTE 1992 Rotator cuff repair, LEFT TONSILLECTOMY & ADENOIDECTOMY <AGE 13 1950 ALLERGIES Dust Mites MEDICATIONS tamsulosin (FLOMAX) 0.4 mg Take 1 capsule by mouth once daily. losartan (COZAAR) 50 mg tablet Take 1 tablet by mouth once daily. celecoxib (CELEBREX) 200 mg capsule Take 1 capsule by mouth once daily. gabapentin (NEURONTIN) 300 mg capsule Take 1 capsule by mouth two times a day for 120 days. tiZANidine (ZANAFLEX) 4 mg tablet Take 1 tablet by mouth every 8 hours as needed. atorvastatin (LIPITOR) 20 mg tablet Take 1 tablet by mouth daily at bedtime. For cholesterol. alendronate (FOSAMAX) 70 mg tablet Take 1 tablet by mouth one time a week. Take with a full glass of water, on an empty stomach; do NOT lie down for 30minutes. latanoprost, PF, 0.005 % drop Use 1 Drop in eyes daily at bedtime. Omeprazole Magnesium (PRILOSEC OTC) 20 mg tablet Take 1 tablet by mouth daily at bedtime. 1/2 hr before meal. melatonin 10 mg cap Take 1 capsule by mouth at bedtime as needed. Ascorbic Acid 1,000 mg tablet Take 1 tablet by mouth once daily. FAMILY HISTORY Problem Relation Age of Onset Heart Mother CHF, dec. GI Mother GI bleed other (Other) Father Pulmonary fibrosis Colon Cancer Paternal Grandmother None Brother None Brother Social History Tobacco Use Smoking status: Never Smokeless tobacco: Never Vaping Use Vaping status: Never Used Substance Use Topics Alcohol use: Not Currently Drug use: Never BP 136/82 Pulse 79 Resp 18 Wt 72 kg (158 lb 11.7 oz) SpO2 97% BMI 24.14 kg/m Physical Exam Vitals reviewed. Constitutional: Appearance: Normal appearance. Cardiovascular: Rate and Rhythm: Normal rate and regular rhythm. Pulses: Normal pulses. Heart sounds: Normal heart sounds. No murmur heard. Pulmonary: Effort: Pulmonary effort is normal. Breath sounds: Normal breath sounds. No wheezing, rhonchi or rales. Neurological: Mental Status: He is alert. Psychiatric: Mood and Affect: Mood normal. Health maintenance reviewed with patient: Depression Screening Never done Anxiety Screening Never done BP Controlled (<130/80) Never done Covid-19 Vaccine(2023- season) due on 12/24/2023 DTaP,Tdap,Td Vaccine( - Tdap) due on 07/13/2024 Annual PCP Team Chronic Disease Visit due on 11/13/2024 Diabetes Screening due on 07/16/2026 Influenza Vaccine Completed RSV Vaccine Completed Hepatitis C Screening Completed Shingrix Vaccine Completed Pneumococcal Vaccine: 65+ Completed Colorectal Cancer Screening Discontinued Advance Directive Discussion Discontinued DATA REVIEWED: Most recent labs ASSESSMENT/PLAN: 1. Sleep apnea, unspecified type - ICD9: 780.57, ICD10: G47.30 (primary diagnosis) Import/Export Administrator recommended testing for sleep apnea due to worsening glaucoma. Patient meets criteria for testing. - HOME SLEEP APNEA TEST (HSAT) 2. Primary hypertension - ICD9: 401.9, ICD10: I10 - Controlled - Continue current medications - Recommend home blood pressure monitoring, to bring results to next visit - Encouraged sodium restriction, DASH or Mediterranean diet 3. Gastroesophageal reflux disease, unspecified whether esophagitis present - ICD9: 530.81, ICD10: K21.9 stable 4. BPH with obstruction/lower urinary tract symptoms - ICD9: 600.01, 599.69, ICD10: N40.1, N13.8 stable Prescription instructions reviewed with patient as applicable. Potential red flag symptoms discussed with the patient. Reviewed appropriate action plan to take if red flag symptoms occur. Patient agreeable to treatment plan. Vaishali Novak APRN.GENERAL [employer] documented in this encounter [facility] 12-28-2023 Telephone encounter Note [facility] 01/17/23 01/23/24 Patient phones requesting refills as follows: Requested Prescriptions Pending Prescriptions Disp Refills tamsulosin (FLOMAX) 0.4 mg 90 capsule 3 Sig: Take 1 capsule by mouth once daily. Please review and advise. Lupe Page RN [facility] 12-28-2023 Miscellaneous Notes [facility] 01/17/23 01/23/24 Patient phones requesting refills as follows: Requested Prescriptions Pending Prescriptions Disp Refills tamsulosin (FLOMAX) 0.4 mg 90 capsule 3 Sig: Take 1 capsule by mouth once daily. Please review and advise. Lupe Page RN documented in this encounter [facility] 11-14-2023 Telephone encounter Note Pt notified of provider message regarding bp readings. Tammie Rush LPN [facility] 11-14-2023 Miscellaneous Notes Pt notified of provider message regarding bp readings. Tammie Rush LPN Left message to call office. 11/14/2023 1:24 PM Home BP readings at goal, no medication changes Vaishali Novak APRN.[employer] 11/14/2023: Home BP Cuff Validated. Home BP: 149/98 Office BP: 146/94 BP Tremaine Serial, Digital BP Readings, Taken 2 Minutes Apart, Average Readings: 150/78 Pulse: 75 Pts home readings: 11/12 126/77 ; 128/77 7/8 121/74 6 135/84 Reason for blood pressure check - Last BP elevated Patient is: Taking medication as prescribed Yes Took medication today No If no, date medication last taken evening Experiencing side effects No Recommendations Continue taking medications as prescribed, Follow recommended diet instructions, Continue recommended activity, and Avoid excessive salt Follow-up Yes Pt has been identified by name and birthdate: Yes Allergies reviewed: Yes Latex allergy: no. Medication - prescribed and OTC reviewed and updated: Yes Do you need any prescription refills prior to your next visit: No Health Maintenance: Reviewed and up to date documented in this encounter [facility] 11-14-2023 Telephone encounter Note Left message to call office. 11/14/2023 1:24 PM [facility] 11-14-2023 Telephone encounter Note Home BP readings at goal, no medication changes Vaishali Novak APRN.[employer] [facility] 11-14-2023 Telephone encounter Note 11/14/2023: Home BP Cuff Validated. Home BP: 149/98 Office BP: 146/94 BP Tremaine Serial, Digital BP Readings, Taken 2 Minutes Apart, Average Readings: 150/78 Pulse: 75 Pts home readings: 11/12 126/77 ; 128/77 7/ 121/74 6/24 135/84 Reason for blood pressure check - Last BP elevated Patient is: Taking medication as prescribed Yes Took medication today No If no, date medication last taken evening Experiencing side effects No Recommendations Continue taking medications as prescribed, Follow recommended diet instructions, Continue recommended activity, and Avoid excessive salt Follow-up Yes Pt has been identified by name and birthdate: Yes Allergies reviewed: Yes Latex allergy: no. Medication - prescribed and OTC reviewed and updated: Yes Do you need any prescription refills prior to your next visit: No Health Maintenance: Reviewed and up to date [facility] 11-14-2023 Note HNO ID: [id number] Author: MIKEL RIOS MA Service: ? Author Type: Director Pharmacovigilance Type: Progress Notes Filed: 11/14/2023 09:17 Note Text: 11/14/2023: Home BP Cuff Validated. Home BP: 149/98 Office BP: 146/94 BP Tremaine Serial, Digital BP Readings, Taken 2 Minutes Apart, Average Readings: 150/78 Pulse: 75 Pts home readings: 11/12 126/77 ; 128/77 7/8 121/74 6/ 135/84 Reason for blood pressure check - Last BP elevated Patient is: Taking medication as prescribed Yes Took medication today No If no, date medication last taken evening Experiencing side effects No Recommendations Continue taking medications as prescribed, Follow recommended diet instructions, Continue recommended activity, and Avoid excessive salt Follow-up Yes Pt has been identified by name and birthdate: Yes Allergies reviewed: Yes Latex allergy: no. Medication - prescribed and OTC reviewed and updated: Yes Do you need any prescription refills prior to your next visit: No Health Maintenance: Reviewed and up to date [facility] 11-14-2023 History of Presen t illness Narrative 11/14/2023: Home BP Cuff Validated. Home BP: 149/98 Office BP: 146/94 BP Tremaine Serial, Digital BP Readings, Taken 2 Minutes Apart, Average Readings: 150/78 Pulse: 75 Pts home readings: 11/12 126/77 ; 128/77 7/8 121/74 6/24 135/84 Reason for blood pressure check - Last BP elevated Patient is: Taking medication as prescribed Yes Took medication today No If no, date medication last taken evening Experiencing side effects No Recommendations Continue taking medications as prescribed, Follow recommended diet instructions, Continue recommended activity, and Avoid excessive salt Follow-up Yes Pt has been identified by name and birthdate: Yes Allergies reviewed: Yes Latex allergy: no. Medication - prescribed and OTC reviewed and updated: Yes Do you need any prescription refills prior to your next visit: No Health Maintenance: Reviewed and up to date documented in this encounter [facility] 10-31-2023 Telephone encounter Note The patient has been identified by name and date of : Yes Caregiver verified no other encounters exist for this prescription request: Yes Caregiver confirmed with patient/requestor that no other refills are due, in the near future, with this provider at this time: Yes The last office visit in the department: 10/17/2023 Does the patient have a future office visit with this provider/department: Yes 11/14/2023 Requested Prescriptions Pending Prescriptions Disp Refills losartan (COZAAR) 50 mg tablet 90 tablet 1 Sig: Take 1 tablet by mouth once daily. Katty Marsh RN October 31, 2023 10:46 AM [facility] 10-31-2023 Miscellaneous Notes The patient has been identified by name and date of : Yes Caregiver verified no other encounters exist for this prescription request: Yes Caregiver confirmed with patient/requestor that no other refills are due, in the near future, with this provider at this time: Yes The last office visit in the department: 10/17/2023 Does the patient have a future office visit with this provider/department: Yes 11/14/2023 Requested Prescriptions Pending Prescriptions Disp Refills losartan (COZAAR) 50 mg tablet 90 tablet 1 Sig: Take 1 tablet by mouth once daily. Katty Marsh RN October 31, 2023 10:46 AM documented in this encounter [facility] 10-23-2023 Roberto Carlos Styles MD - 10/23/2023 10:38 AM EDT The patient will continue with gabapentin, celecoxib, and tizanidine. He will continue with core strengthening and range of motion exercises. Follow-up in office in 6 months time. documented in this encounter [facility] 10-23-2023 History of Presen t illness Narrative This note was created using Xquvariter. Subjective Marty Antunez is a 78 year old male. The patient primarily being seen for back pain - [facility] Patient was last seen on: 07/19/23 At that time, the treatment plan was: see notes Current Meds: Gabapentin - last dose last pm, Celebrex - yesterday, Tizanidine - last pm Efficacy: help Side effects: none TENS unit: had one but didn't help How often used: Benefit: Physical Therapy: years ago - does exercises on his own Last UDS: no narcotics Last injection: none OARRS reviewed 07/19/2023 10/23/2023 INTAKE PAIN ASSESSMENT Are you having pain associated with your visit today? Yes, Provider notified Yes, Provider notified Pain Scales Verbal (Numeric Rating or Visual Analog Scale) Verbal (Numeric Rating or Visual Analog Scale) Pain Level 2 4 Pain Location Back-Lower Back Description Dull;Shooting Sore;Stiffness;Sharp Frequency Continuous Continuous Intervention/Comfort measure Medication;Relaxation;Heat Medication;Heat HPI Patient is getting adequate relief from the present regimen and denies any side effect from it. This has improved the patient s level of functionality and has been able to perform activities of daily living. The patient exhibits no aberrant behavior. The PDMP report and last UDS are both consistent with prescribed medications and are unremarkable. Review of Systems Constitutional: Negative for fever and unexpected weight change. Musculoskeletal: +back pain, joint pain, numbness, tingling, muscle cramps/weakness, stiffness, arthritis, sciatica, and leg pain with exertion. Objective BP 160/81 (BP Site: Left Arm, BP Position: Sitting, BP Cuff Size: Large Adult) Pulse 77 Temp 36.4 C (97.6 F) (Temporal) Resp 20 Ht 172.7 cm (5' 8 ) Wt 70.3 kg (155 lb) SpO2 99% BMI 23.57 kg/m Physical Exam Vitals and nursing note reviewed. Constitutional: General: He is not in acute distress. Appearance: Normal appearance. He is well-developed, well-groomed and normal weight. HENT: Head: Normocephalic and atraumatic. Right Ear: Hearing and external ear normal. Left Ear: Hearing and external ear normal. Nose: Nose normal. Eyes: General: No scleral icterus. Extraocular Movements: Extraocular movements intact. Conjunctiva/sclera: Conjunctivae normal. Musculoskeletal: Comments: He is not using his cane today. There is tenderness to palpation in the lumbar region with spasms in the trapezius, paraspinal, and latissimus dorsi muscles. Strength is 4-5/5 in the LLE. He has atrophy noted in the LLE. Sensation is decreased in the lateral LLE, worse around the proximal lateral thigh. SLR is negative. He has a brace present on the left ankle. Skin: General: Skin is warm and dry. Neurological: Mental Status: He is alert and oriented to person, place, and time. Psychiatric: Attention and Perception: Attention and perception normal. Mood and Affect: Mood and affect normal. Speech: Speech normal. Behavior: Behavior normal. Behavior is cooperative. Thought Content: Thought content normal. Judgment: Judgment normal. Assessment and Plan ASSESSMENT/PLAN: 1. Degeneration of intervertebral disc of lumbosacral region - [facility] - ICD9: 722.52, ICD10: M51.37 (primary diagnosis) 2. Pelvic Fracture NOS - closed - [facility] - ICD9: [id number], ICD10: S32.9XXA 3. Fracture lumbar vertebra - closed - [facility] - ICD9: 805.4, ICD10: S32.020A PLAN: The patient will continue with gabapentin, celecoxib, and tizanidine. He will continue with core strengthening and range of motion exercises. Follow-up in office in 6 months time. 30 minutes spent for chronic pain management distinct from evaluation and management Two or more stable chronic illness and prescription medication management This document was transcribed using a voice recognition software and may contain minor errors. Roberto Carlos Godwin MD documented in this encounter [facility] 10-23-2023 Note HNO ID: [id number] Author: ROBERTO CARLOS GODWIN MD Service: ? Author Type: Anesthesiologist Type: Progress Notes Filed: 10/23/2023 13:03 Note Text: This note was created using NoteWriter. Subjective Marty Antunez is a 78 year old male. The patient primarily being seen for back pain - [facility] Patient was last seen on: 07/19/23 At that time, the treatment plan was: see notes Current Meds: Gabapentin - last dose last pm, Celebrex - yesterday, Tizanidine - last pm Efficacy: help Side effects: none TENS unit: had one but didn't help How often used: Benefit: Physical Therapy: years ago - does exercises on his own Last UDS: no narcotics Last injection: none OARRS reviewed 07/19/2023 10/23/2023 INTAKE PAIN ASSESSMENT Are you having pain associated with your visit today? Yes, Provider notified Yes, Provider notified Pain Scales Verbal (Numeric Rating or Visual Analog Scale) Verbal (Numeric Rating or Visual Analog Scale) Pain Level 2 4 Pain Location Back-Lower Back Description Dull;Shooting Sore;Stiffness;Sharp Frequency Continuous Continuous Intervention/Comfort measure Medication;Relaxation;Heat Medication;Heat HPI Patient is getting adequate relief from the present regimen and denies any side effect from it. This has improved the patient?s level of functionality and has been able to perform activities of daily living. The patient exhibits no aberrant behavior. The PDMP report and last UDS are both consistent with prescribed medications and are unremarkable. Review of Systems Constitutional: Negative for fever and unexpected weight change. Musculoskeletal: +back pain, joint pain, numbness, tingling, muscle cramps/weakness, stiffness, arthritis, sciatica, and leg pain with exertion. Objective BP 160/81 (BP Site: Left Arm, BP Position: Sitting, BP Cuff Size: Large Adult) Pulse 77 Temp 36.4 ?C (97.6 ?F) (Temporal) Resp 20 Ht 172.7 cm (5' 8 ) Wt 70.3 kg (155 lb) SpO2 99% BMI 23.57 kg/m? Physical Exam Vitals and nursing note reviewed. Constitutional: General: He is not in acute distress. Appearance: Normal appearance. He is well-developed, well-groomed and normal weight. HENT: Head: Normocephalic and atraumatic. Right Ear: Hearing and external ear normal. Left Ear: Hearing and external ear normal. Nose: Nose normal. Eyes: General: No scleral icterus. Extraocular Movements: Extraocular movements intact. Conjunctiva/sclera: Conjunctivae normal. Musculoskeletal: Comments: He is not using his cane today. There is tenderness to palpation in the lumbar region with spasms in the trapezius, paraspinal, and latissimus dorsi muscles. Strength is 4-5/5 in the LLE. He has atrophy noted in the LLE. Sensation is decreased in the lateral LLE, worse around the proximal lateral thigh. SLR is negative. He has a brace present on the left ankle. Skin: General: Skin is warm and dry. Neurological: Mental Status: He is alert and oriented to person, place, and time. Psychiatric: Attention and Perception: Attention and perception normal. Mood and Affect: Mood and affect normal. Speech: Speech normal. Behavior: Behavior normal. Behavior is cooperative. Thought Content: Thought content normal. Judgment: Judgment normal. Assessment and Plan ASSESSMENT/PLAN: 1. Degeneration of intervertebral disc of lumbosacral region - [facility] - ICD9: 722.52, ICD10: M51.37 (primary diagnosis) 2. Pelvic Fracture NOS - closed - [facility] - ICD9: [id number], ICD10: S32.9XXA 3. Fracture lumbar vertebra - closed - [facility] - ICD9: 805.4, ICD10: S32.020A PLAN: The patient will continue with gabapentin, celecoxib, and tizanidine. He will continue with core strengthening and range of motion exercises. Follow-up in office in 6 months time. 30 minutes spent for chronic pain management distinct from evaluation and management Two or more stable chronic illness and prescription medication management This document was transcribed using a voice recognition software and may contain minor errors. Roberto Carlos Godwin MD [facility] 10-17-2023 Telephone encounter Note Pt notified, verbalized understanding. 1 month nurse visit scheduled. [facility] 10-17-2023 Miscellaneous Notes Pt notified, verbalized understanding. 1 month nurse visit scheduled. Increase Losartan to 50 mg daily. Recheck in one month Vaishali Novak APRN.CNP BP Tremaine Serial, Digital BP Readings, Taken 2 Minutes Apart, Average Readings: 149/85 Pulse: 88 149/86 hr 90 149/86 hr 88 148/84 hr 88 149/83 hr 88 147/85 hr 87 Reason for blood pressure check - Last BP elevated Patient is: Taking medication as prescribed Yes Took medication today No If no, date medication last taken - evening Experiencing side effects No Recommendations Continue taking medications as prescribed, Follow recommended diet instructions, Continue recommended activity, and Avoid excessive salt Follow-up Yes Pt has been identified by name and birthdate: Yes Allergies reviewed: Yes Latex allergy: no. Medication - prescribed and OTC reviewed and updated: Yes Do you need any prescription refills prior to your next visit: No Health Maintenance: Reviewed and up to date documented in this encounter [facility] 10-17-2023 Telephone encounter Note Increase Losartan to 50 mg daily. Recheck in one month Vaishali Novak APRN.[employer] [facility] 10-17-2023 Telephone encounter Note BP Tremaine Serial, Digital BP Readings, Taken 2 Minutes Apart, Average Readings: 149/85 Pulse: 88 149/86 hr 90 149/86 hr 88 148/84 hr 88 149/83 hr 88 147/85 hr 87 Reason for blood pressure check - Last BP elevated Patient is: Taking medication as prescribed Yes Took medication today No If no, date medication last taken - evening Experiencing side effects No Recommendations Continue taking medications as prescribed, Follow recommended diet instructions, Continue recommended activity, and Avoid excessive salt Follow-up Yes Pt has been identified by name and birthdate: Yes Allergies reviewed: Yes Latex allergy: no. Medication - prescribed and OTC reviewed and updated: Yes Do you need any prescription refills prior to your next visit: No Health Maintenance: Reviewed and up to date [facility] 10-17-2023 Note HNO ID: [id number] Author: MIKEL RIOS MA Service: ? Author Type: Director Pharmacovigilance Type: Progress Notes Filed: 10/17/2023 10:10 Note Text: BP Tremaine Serial, Digital BP Readings, Taken 2 Minutes Apart, Average Readings: 149/85 Pulse: 88 149/86 hr 90 149/86 hr 88 148/84 hr 88 149/83 hr 88 147/85 hr 87 Reason for blood pressure check - Last BP elevated Patient is: Taking medication as prescribed Yes Took medication today No If no, date medication last taken - evening Experiencing side effects No Recommendations Continue taking medications as prescribed, Follow recommended diet instructions, Continue recommended activity, and Avoid excessive salt Follow-up Yes Pt has been identified by name and birthdate: Yes Allergies reviewed: Yes Latex allergy: no. Medication - prescribed and OTC reviewed and updated: Yes Do you need any prescription refills prior to your next visit: No Health Maintenance: Reviewed and up to date [facility] 10-17-2023 History of Presen t illness Narrative BP Tremaine Serial, Digital BP Readings, Taken 2 Minutes Apart, Average Readings: 149/85 Pulse: 88 149/86 hr 90 149/86 hr 88 148/84 hr 88 149/83 hr 88 147/85 hr 87 Reason for blood pressure check - Last BP elevated Patient is: Taking medication as prescribed Yes Took medication today No If no, date medication last taken - evening Experiencing side effects No Recommendations Continue taking medications as prescribed, Follow recommended diet instructions, Continue recommended activity, and Avoid excessive salt Follow-up Yes Pt has been identified by name and birthdate: Yes Allergies reviewed: Yes Latex allergy: no. Medication - prescribed and OTC reviewed and updated: Yes Do you need any prescription refills prior to your next visit: No Health Maintenance: Reviewed and up to date documented in this encounter [facility] 09-08-2023 Telephone encounter Note The following approved medication requests have been transmitted electronically. Requested Prescriptions Signed Prescriptions Disp Refills celecoxib (CELEBREX) 200 mg capsule 30 capsule 3 Sig: Take 1 capsule by mouth once daily. Authorizing Provider: LUPE FORTUNE gabapentin (NEURONTIN) 300 mg capsule 60 capsule 3 Sig: Take 1 capsule by mouth two times a day for 120 days. Authorizing Provider: LUPE FORTUNE PA-C [facility] 09-08-2023 Miscellaneous Notes The following approved medication requests have been transmitted electronically. Requested Prescriptions Signed Prescriptions Disp Refills celecoxib (CELEBREX) 200 mg capsule 30 capsule 3 Sig: Take 1 capsule by mouth once daily. Authorizing Provider: LUPE FORTUNE gabapentin (NEURONTIN) 300 mg capsule 60 capsule 3 Sig: Take 1 capsule by mouth two times a day for 120 days. Authorizing Provider: LUPE FORTUNE PA-C Patient phones requesting refills as follows: Requested Prescriptions Pending Prescriptions Disp Refills celecoxib (CELEBREX) 200 mg capsule 30 capsule 3 Sig: Take 1 capsule by mouth once daily. gabapentin (NEURONTIN) 300 mg capsule 60 capsule 11 Sig: Take 1 capsule by mouth two times a day. Last UDS: Non-opioid agreement signed 07/19/23 C DX 08/11/22 No results found for: SUMM , PREGAB No results found for: UQNOTE , OPIATEPNMGT , DRUGSCRPAIN Urine Panel: No results found for: UQCANN , UQBNZL , MEQ1CED , UQAMPH , UQMAMP , UQBUPRE , UQNORBUP , UQMTHD , UQEDDP , UQTRAM , UQDTRM , UQFNTL , UQNFTL , UQCODE , UQMORP , UQDCDN , UQHCOD , UQOXYC , UQHMOR , UQOXYM , UQCREA , UQPH , UQSPGR , UQOXID , UQSPQ @FLOW([id number])@ No results found for: SUMM No results found for: SUMMAR None on file Please review and advise. Jennifer Nazario RN documented in this encounter [facility] 09-08-2023 Telephone encounter Note Patient phones requesting refills as follows: Requested Prescriptions Pending Prescriptions Disp Refills celecoxib (CELEBREX) 200 mg capsule 30 capsule 3 Sig: Take 1 capsule by mouth once daily. gabapentin (NEURONTIN) 300 mg capsule 60 capsule 11 Sig: Take 1 capsule by mouth two times a day. Last UDS: Non-opioid agreement signed 07/19/23 [facility] DX 08/11/22 No results found for: SUMM , PREGAB No results found for: UQNOTE , OPIATEPNMGT , DRUGSCRPAIN Urine Panel: No results found for: UQCANN , UQBNZL , HPG4AVC , UQAMPH , UQMAMP , UQBUPRE , UQNORBUP , UQMTHD , UQEDDP , UQTRAM , UQDTRM , UQFNTL , UQNFTL , UQCODE , UQMORP , UQDCDN , UQHCOD , UQOXYC , UQHMOR , UQOXYM , UQCREA , UQPH , UQSPGR , UQOXID , UQSPQ @FLOW([id number])@ No results found for: SUMM No results found for: SUMMAR None on file Please review and advise. Jennifer Nazario RN [facility] 07-19-2023 Instructions Lupe Fortune PA-C - 07/19/2023 10:14 AM EDT The OARRS report has been reviewed and is consistent with the patients medical history and medication intake. Continue with the gabapentin, celecoxib, and tizandine Continue with core strengthening and range of motion exercises FU in the office in 3-4 months. Discuss your blood pressure with your family doctor - BP 146/89 I discussed the patient with Dr. Godwin who agrees with my assessment and plan. All of the above is to improve functionality and quality of life. No evidence of drug abuse or diversion is seen at this time. documented in this encounter [facility] 07-19-2023 Note HNO ID: [id number] Author: LUPE FORTUNE PA-C Service: ? Author Type: Physician Home Health Care Social Worker Type: Progress Notes Filed: 07/19/2023 10:26 Note Text: This note was created using Xquvariter. Subjective Marty Antunez is a 78 year old male. The patient primarily being seen for back pain-[facility] Patient was last seen on: 03/20/23 At that time, the treatment plan was: see notes Current Meds: Gabapentin last pm/ Celebrex yest./ Tizanidine last pm Efficacy: helpful Side effects: denies TENS unit: How often used: Benefit: Physical Therapy: Last UDS: Last injection: OARRS reviewed At the present time, the patient reports benefit with his present analgesic therapy. He denies any adverse effects. Since his previous visit, he denies any hospitalizations or ER visits. Otherwise, he has nothing further to discuss at this time. 07/14/2023 07/19/2023 INTAKE PAIN ASSESSMENT Are you having pain associated with your visit today? 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 Spinal cord injury 08/16/1979 Fall at work, left leg atrophy Urinary retention 02/17/2011 PAST SURGICAL HISTORY Procedure Laterality Date COLONOSCOPY FLX DX W/COLLJ SPEC WHEN PFRMD 11/2003 Colonoscopy COLONOSCOPY FLX DX W/COLLJ SPEC WHEN PFRMD 02/23/2012 Colonoscopy COLONOSCOPY FLX DX W/COLLJ SPEC WHEN PFRMD 05/04/2018 Colonoscopy NEUROPLASTY AND/TRANSPOS MEDIAN NRV CARPAL TUNNE 2009 Carpal tunnel decomp, LEFT NEUROPLASTY AND/TRANSPOSITION ULNAR NERVE WRIST 2009 LEFT OPEN REPAIR OF ROTATOR CUFF ACUTE 1992 Rotator cuff repair, LEFT TONSILLECTOMY AND ADENOIDECTOMY Social History Tobacco Use Smoking status: Never Smokeless tobacco: Never Vaping Use Vaping Use: Never used Substance Use Topics Alcohol use: Not Currently Drug use: Never Review of Systems Constitutional: Negative for fever and unexpected weight change. Musculoskeletal: +back pain, joint pain, numbness, tingling, muscle cramps/weakness, stiffness, arthritis, sciatica, and leg pain with exertion. Objective BP 146/89 (BP Site: Left Arm, BP Position: Sitting, BP Cuff Size: Large Adult) Pulse 93 Temp 36.6 ?C (97.8 ?F) (Temporal) Resp 18 SpO2 96% Physical Exam Vitals and nursing note reviewed. Constitutional: Appearance: Normal appearance. He is well-developed, well-groomed and normal weight. HENT: Head: Normocephalic and atraumatic. Right Ear: Hearing normal. Left Ear: Hearing normal. Eyes: Conjunctiva/sclera: Conjunctivae normal. Musculoskeletal: Comments: He is not using his cane today. There is tenderness to palpation in the lumbar region with spasms in the trapezius, paraspinal, and latissimus dorsi muscles. Strength is 4-5/5 in the LLE. He has atrophy noted in the LLE. Sensation is decreased in the lateral LLE, worse around the proximal lateral thigh. SLR is negative. He has a brace present on the left ankle. Neurological: Mental Status: He is alert and oriented to person, place, and time. Psychiatric: Attention and Perception: Attention and perception normal. Mood and Affect: Mood and affect normal. Speech: Speech normal. Behavior: Behavior normal. Behavior is cooperative. Thought Content: Thought content normal. Judgment: Judgment normal. Assessment and Plan ASSESSMENT/PLAN: 1. Degeneration of intervertebral disc of lumbosacral region - [facility] - ICD9: 722.52, ICD10: M51.37 (primary diagnosis) The OARRS report has been reviewed and is consistent with the patients medical history and medication intake. Continue with the gabapentin, celecoxib, and tizandine Continue with core strengthening and range of motion exercises FU in the office in 3-4 months. Discuss your blood pressure with your family doctor - BP 146/89 - GABAPENTIN 300 MG CAPSULE - CELECOXIB 200 MG CAPSULE - TIZANIDINE 4 MG TABLET 2. Pelvic Fracture NOS - closed - [facility] - ICD9: [id number], ICD10: S32.9XXA 3. Fracture lumbar vertebra - closed - [facility] - ICD9: 805.4, ICD10: S32.020A Lupe Fortune PA-C [facility] 07-19-2023 History of Presen t illness Narrative This note was created using Xquvariter. Subjective Marty Antunez is a 78 year old male. The patient primarily being seen for back pain-[facility] Patient was last seen on: 03/20/23 At that time, the treatment plan was: see notes Current Meds: Gabapentin last pm/ Celebrex yest./ Tizanidine last pm Efficacy: helpful Side effects: denies TENS unit: How often used: Benefit: Physical Therapy: Last UDS: Last injection: OARRS reviewed At the present time, the patient reports benefit with his present analgesic therapy. He denies any adverse effects. Since his previous visit, he denies any hospitalizations or ER visits. Otherwise, he has nothing further to discuss at this time. 07/14/2023 07/19/2023 INTAKE PAIN ASSESSMENT Are you having pain associated with your visit today? 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 Spinal cord injury 08/16/1979 Fall at work, left leg atrophy Urinary retention 02/17/2011 PAST SURGICAL HISTORY Procedure Laterality Date COLONOSCOPY FLX DX W/COLLJ SPEC WHEN PFRMD 11/2003 Colonoscopy COLONOSCOPY FLX DX W/COLLJ SPEC WHEN PFRMD 02/23/2012 Colonoscopy COLONOSCOPY FLX DX W/COLLJ SPEC WHEN PFRMD 05/04/2018 Colonoscopy NEUROPLASTY &/TRANSPOS MEDIAN NRV CARPAL TUNNE 2009 Carpal tunnel decomp, LEFT NEUROPLASTY &/TRANSPOSITION ULNAR NERVE WRIST 2008 LEFT OPEN REPAIR OF ROTATOR CUFF ACUTE 1992 Rotator cuff repair, LEFT TONSILLECTOMY & ADENOIDECTOMY <AGE 13 1950 Social History Tobacco Use Smoking status: Never Smokeless tobacco: Never Vaping Use Vaping Use: Never used Substance Use Topics Alcohol use: Not Currently Drug use: Never Review of Systems Constitutional: Negative for fever and unexpected weight change. Musculoskeletal: +back pain, joint pain, numbness, tingling, muscle cramps/weakness, stiffness, arthritis, sciatica, and leg pain with exertion. Objective BP 146/89 (BP Site: Left Arm, BP Position: Sitting, BP Cuff Size: Large Adult) Pulse 93 Temp 36.6 C (97.8 F) (Temporal) Resp 18 SpO2 96% Physical Exam Vitals and nursing note reviewed. Constitutional: Appearance: Normal appearance. He is well-developed, well-groomed and normal weight. HENT: Head: Normocephalic and atraumatic. Right Ear: Hearing normal. Left Ear: Hearing normal. Eyes: Conjunctiva/sclera: Conjunctivae normal. Musculoskeletal: Comments: He is not using his cane today. There is tenderness to palpation in the lumbar region with spasms in the trapezius, paraspinal, and latissimus dorsi muscles. Strength is 4-5/5 in the LLE. He has atrophy noted in the LLE. Sensation is decreased in the lateral LLE, worse around the proximal lateral thigh. SLR is negative. He has a brace present on the left ankle. Neurological: Mental Status: He is alert and oriented to person, place, and time. Psychiatric: Attention and Perception: Attention and perception normal. Mood and Affect: Mood and affect normal. Speech: Speech normal. Behavior: Behavior normal. Behavior is cooperative. Thought Content: Thought content normal. Judgment: Judgment normal. Assessment and Plan ASSESSMENT/PLAN: 1. Degeneration of intervertebral disc of lumbosacral region - [facility] - ICD9: 722.52, ICD10: M51.37 (primary diagnosis) The OARRS report has been reviewed and is consistent with the patients medical history and medication intake. Continue with the gabapentin, celecoxib, and tizandine Continue with core strengthening and range of motion exercises FU in the office in 3-4 months. Discuss your blood pressure with your family doctor - BP 146/89 - GABAPENTIN 300 MG CAPSULE - CELECOXIB 200 MG CAPSULE - TIZANIDINE 4 MG TABLET 2. Pelvic Fracture NOS - closed - [facility] - ICD9: [id number], ICD10: S32.9XXA 3. Fracture lumbar vertebra - closed - [facility] - ICD9: 805.4, ICD10: S32.020A Lupe Fortune PA-C documented in this encounter [facility] 07-14-2023 Instructions Vaishali Novak, ELECTROENCEPHALOGRAPH TECHNICIAN.[facility] - 07/14/2023 12:34 PM EDT Screening schedule The following prevention plan is recommended: BP Controlled (<130/80) Never done DTaP,Tdap,Td Vaccine(1 - Tdap) due on 03/08/2012 WHAT YOU CAN DO TO PREVENT FALLS Many falls can be prevented. By making some changes, you can lower your chances of falling. Four things YOU can do to prevent falls for you* and your caregiver 1. Begin a regular exercise program Exercise is one of the most important ways to lower your chances of falling. It makes you stronger and helps you feel better. Exercises that improve balance and coordination (like Isaiah Chi) are the most helpful. Lack of exercise leads to weakness and increases your chances of falling. Ask your doctor or health care provider about the best type of exercise program for you. 2. Have your health care provider review your medicines Have your doctor or pharmacist review all the medicines you take, even [id number] medicines. As you get older, the way medicines work in your body can change. Some medicines, or combinations of medicines, can make you sleepy or dizzy and can cause you to fall. 3. Have your vision checked Have your eyes checked by an eye doctor at least once a year. You may be wearing the wrong glasses or have a condition like glaucoma or cataracts that limits your vision. Poor vision can increase your chances of falling. 4. Make your home safer About half of all falls happen at home. To make your home safer: Remove things you can trip over (like papers, books, clothes, and shoes) from stairs and places where you walk. Remove small throw rugs or use double-sided tape to keep the rugs from slipping. Keep items you use often in cabinets you can reach easily without using a step stool. Have grab bars put in next to your toilet and in the tub or shower. Use non-slip mats in the bathtub and on shower floors. Improve the lighting in your home. As you get older, you need brighter lights to see well. Hang light-weight curtains or shades to reduce glare. Have handrails and lights put in on all staircases. Wear shoes both inside and outside the house. Avoid going barefoot or wearing slippers. For more information, contact: Centers for Disease Control and Prevention www.cdc.gov/injury * This information may not apply if you have certain medical conditions. documented in this encounter [facility] 07-14-2023 Note HNO ID: [id number] Author: VAISHALI NOVAK APRN.DOMINGA Service: ? Author Type: Nurse Practitioner Type: Progress Notes Filed: 07/14/2023 13:54 Note Text: Marty Antunez is a 78 year old male here for a Medicare wellness visit. Medicare Health Risk Assessment General Health Good Exercise: Minutes/Day 60 min Exercise: Days/Week 3 days Alcohol: Daily Use Monthly or less Alcohol: Drinks/Day 1 or 2 Alcohol: 6 or more drinks Never Feel off balance Yes Concerns: Teeth/Dentures No Concerns: Sexual function No Troubled by feelings None of the above Frequency: Eating healthy diet ADLs requiring help None of the above Safety precautions in home/vehicle Yes Smoke, vape, chews tobacco No Difficulty hearing No Difficulty seeing Yes Current Providers Specialists: I have reviewed specialist-related care of the patient in the medical record. Current care team: Patient Care Team: Nelson Rea MD as PCP - General (Internal Medicine) Lupe GILLIAM-pain management Kimberley GILLIAM-urology Outside specialists seen: [facility] Medical/Family history review Reviewed and updated problem list, medical/surgical/family/social history, medications, and allergies. Opioid use review Opioid Medications (last 90 days) No data to display Depression screening Depression Screening PHQ-2 Score 07/14/2023 0 Depression screening tool completed and reviewed. Based on score and interview, patient is not at risk for depression. Screening tool discussed with patient, and I recommended no further intervention at this time. Cognitive screening Mini Cog Score: 5 Cognitive screening reviewed and no further action needed (score 3-5) Functional Observation Was the patient's Timed Up AND Go test unsteady or ? 12 seconds? No Advance Care Planning Patient did not wish or was not able to name a surrogate decision maker or provide an advance care plan Measurements BP 136/82 Pulse 95 Resp 14 Ht 5' 8 (1.73m) Wt 162 lb (73.5kg) SpO2 95% BMI 24.64 kg/(m2). Vision Screening: Follows with optometry/ophthalmology Assessment/Plan Medicare annual wellness visit, subsequent (Z00.00) - Counseled on healthy diet and regular exercise - Fall avoidance information provided - Personalized prevention plan provided Additional Concerns The following concerns were also discussed with the patient: HTN-Medication changes:No Taking all medications as prescribed: Yes Side effects: No Home BP's: No Denies: headache, chest pain, palpitations, dyspnea, and peripheral edema. Last 3 Encounter BP Readings: Date: BP: 07/14/2023 136/82 03/20/2023 152/86 02/14/2023 134/76 PHYSICAL EXAM BP 136/82 Pulse 95 Resp 14 Ht 172.7 cm (5' 8 ) Wt 73.5 kg (162 lb) SpO2 95% BMI 24.63 kg/m? GENERAL: well appearing, alert, in no acute distress CARDIOVASCULAR: regular rate and rhythm. No murmur, rubs or gallops. PULMONARY: clear to auscultation, no wheezing, rhonchi, or crackles ASSESSMENT/PLAN: 1. Medicare annual wellness visit, subsequent - ICD9: V70.0, ICD10: Z00.00 (primary diagnosis) See medicare wellness plan 2. Primary hypertension - ICD9: 401.9, ICD10: I10 - Uncontrolled - Continue current medications - Recommend home blood pressure monitoring, to bring results to next visit - Encouraged sodium restriction, DASH or Mediterranean diet - Follow up in 3 months for hypertension visit 3. Hyperlipidemia, unspecified hyperlipidemia type - ICD9: 272.4, ICD10: E78.5 - Control undetermined, due for labs - Continue current medications 4. Impaired fasting glucose - ICD9: 790.21, ICD10: R73.01 james Novak, [place].[facility] 07-14-2023 History of Presen t illness Narrative Images from the original note were not included. Marty Antunez is a 78 year old male here for a Medicare wellness visit. Medicare Health Risk Assessment General Health Good Exercise: Minutes/Day 60 min Exercise: Days/Week 3 days Alcohol: Daily Use Monthly or less Alcohol: Drinks/Day 1 or 2 Alcohol: 6 or more drinks Never Feel off balance Yes Concerns: Teeth/Dentures No Concerns: Sexual function No Troubled by feelings None of the above Frequency: Eating healthy diet ADLs requiring help None of the above Safety precautions in home/vehicle Yes Smoke, vape, chews tobacco No Difficulty hearing No Difficulty seeing Yes Current Providers Specialists: I have reviewed specialist-related care of the patient in the medical record. Current care team: Patient Care Team: Nelson Rea MD as PCP - General (Internal Medicine) Lupe GILLIAM-pain management Kimberley GILLIAM-urology Outside specialists seen: [facility] Medical/Family history review Reviewed and updated problem list, medical/surgical/family/social history, medications, and allergies. Opioid use review Opioid Medications (last 90 days) No data to display Depression screening Depression Screening PHQ-2 Score 07/14/2023 0 Depression screening tool completed and reviewed. Based on score and interview, patient is not at risk for depression. Screening tool discussed with patient, and I recommended no further intervention at this time. Cognitive screening Mini Cog Score: 5 Cognitive screening reviewed and no further action needed (score 3-5) Functional Observation Was the patient's Timed Up & Go test unsteady or ? 12 seconds? No Advance Care Planning Patient did not wish or was not able to name a surrogate decision maker or provide an advance care plan Measurements BP 136/82 Pulse 95 Resp 14 Ht 5' 8 (1.73m) Wt 162 lb (73.5kg) SpO2 95% BMI 24.64 kg/(m^2). Vision Screening: Follows with optometry/ophthalmology Assessment/Plan Medicare annual wellness visit, subsequent (Z00.) - Counseled on healthy diet and regular exercise - Fall avoidance information provided - Personalized prevention plan provided Additional Concerns The following concerns were also discussed with the patient: HTN-Medication changes:No Taking all medications as prescribed: Yes Side effects: No Home BP's: No Denies: headache, chest pain, palpitations, dyspnea, and peripheral edema. Last 3 Encounter BP Readings: Date: BP: 07/14/2023 136/82 03/20/2023 152/86 02/14/2023 134/76 PHYSICAL EXAM BP 136/82 Pulse 95 Resp 14 Ht 172.7 cm (5' 8 ) Wt 73.5 kg (162 lb) SpO2 95% BMI 24.63 kg/m GENERAL: well appearing, alert, in no acute distress CARDIOVASCULAR: regular rate and rhythm. No murmur, rubs or gallops. PULMONARY: clear to auscultation, no wheezing, rhonchi, or crackles ASSESSMENT/PLAN: 1. Medicare annual wellness visit, subsequent - ICD9: V70.0, ICD10: Z00.00 (primary diagnosis) See medicare wellness plan 2. Primary hypertension - ICD9: 401.9, ICD10: I10 - Uncontrolled - Continue current medications - Recommend home blood pressure monitoring, to bring results to next visit - Encouraged sodium restriction, DASH or Mediterranean diet - Follow up in 3 months for hypertension visit 3. Hyperlipidemia, unspecified hyperlipidemia type - ICD9: 272.4, ICD10: E78.5 - Control undetermined, due for labs - Continue current medications 4. Impaired fasting glucose - ICD9: 790.21, ICD10: R73.01 james Novak APRN.[employer] documented in this encounter [facility] 06-20-2023 Miscellaneous Notes Patient has been identified by name and date of : Yes Patient phones for refill(s): Requested Prescriptions Pending Prescriptions Disp Refills atorvastatin (LIPITOR) 20 mg tablet 90 tablet 3 Sig: Take 1 tablet by mouth daily at bedtime. For cholesterol. Date of last office visit in primary care: 02/14/2023 Date of next office visit in primary care: 07/14/2023 Please advise. Thank you. Jaimee Andrade LPN. documented in this encounter [facility] 03-20-2023 Instructions Lupe Fortune PA-C - 03/20/2023 10:19 AM EST The OARRS report has been reviewed and is consistent with the patients medical history and medication intake. Continue with the gabapentin, celecoxib, and tizandine Continue with core strengthening and range of motion exercises FU in the office in 3-4 months. Discuss your blood pressure with your family doctor - BP 152/86 I discussed the patient with Dr. Godwin who agrees with my assessment and plan. All of the above is to improve functionality and quality of life. No evidence of drug abuse or diversion is seen at this time. documented in this encounter [facility] 03-20-2023 Note HNO ID: [id number] Author: Lupe Fortune PA-C Service: ? Author Type: Physician Home Health Care Social Worker Type: Progress Notes Filed: 03/20/2023 10:29 AM Note Text: This note was created using Xquvariter. Twyla Antunez is a 77 year old male. The patient primarily being seen for back pain-[facility] Patient was last seen on: 11/14/22 At that time, the treatment plan was: see notes Current Meds: Gabapentin last pm/ Celebrex yest./ Tizanidine last pm Efficacy: helpful Side effects: denies TENS unit: How often used: Benefit: Physical Therapy: Last UDS: Last injection: OARRS reviewed At the present time, the patient reports benefit with his present analgesic therapy. He denies any adverse effects. Since his previous visit, he denies any hospitalizations or ER visits. Otherwise, he has nothing further to discuss at this time. INTAKE PAIN ASSESSMENT 02/14/2023 03/20/2023 Are you having pain associated with your visit today? 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 Spinal cord injury 08/16/1979 Fall at work, left leg atrophy Urinary retention 02/17/2011 PAST SURGICAL HISTORY Procedure Laterality Date COLONOSCOPY FLX DX W/COLLJ SPEC WHEN PFRMD 11/2003 Colonoscopy COLONOSCOPY FLX DX W/COLLJ SPEC WHEN PFRMD 02/23/2012 Colonoscopy COLONOSCOPY FLX DX W/COLLJ SPEC WHEN PFRMD 05/04/2018 Colonoscopy NEUROPLASTY AND/TRANSPOS MEDIAN NRV CARPAL TUNNE 2009 Carpal tunnel decomp, LEFT NEUROPLASTY AND/TRANSPOSITION ULNAR NERVE WRIST 2009 LEFT OPEN REPAIR OF ROTATOR CUFF ACUTE 1992 Rotator cuff repair, LEFT TONSILLECTOMY AND ADENOIDECTOMY Social History Tobacco Use Smoking status: Never Smokeless tobacco: Never Vaping Use Vaping Use: Never used Substance Use Topics Alcohol use: Not Currently Drug use: Never Review of Systems Constitutional: Negative for fever and unexpected weight change. Musculoskeletal: +back pain, joint pain, numbness, tingling, muscle cramps/weakness, stiffness, arthritis, sciatica, and leg pain with exertion. Objective BP 152/86 (BP Site: Left Arm, BP Position: Sitting, BP Cuff Size: Large Adult) Pulse 79 Temp 36.3 ?C (97.4 ?F) (Temporal) Resp 18 SpO2 97% Physical Exam Vitals and nursing note reviewed. Constitutional: Appearance: Normal appearance. He is well-developed, well-groomed and normal weight. HENT: Head: Normocephalic and atraumatic. Right Ear: Hearing normal. Left Ear: Hearing normal. Eyes: Conjunctiva/sclera: Conjunctivae normal. Musculoskeletal: Comments: He is using a cane for assistance with his gait. There is tenderness to palpation in the lumbar region with spasms in the trapezius, paraspinal, and latissimus dorsi muscles. Strength is 4-5/5 in the LLE. He has atrophy noted in the LLE. Sensation is decreased in the lateral LLE, worse around the proximal lateral thigh. SLR is negative. He has a brace present on the left ankle. Neurological: Mental Status: He is alert and oriented to person, place, and time. Psychiatric: Attention and Perception: Attention and perception normal. Mood and Affect: Mood and affect normal. Speech: Speech normal. Behavior: Behavior normal. Behavior is cooperative. Thought Content: Thought content normal. Judgment: Judgment normal. Assessment and Plan ASSESSMENT/PLAN: 1. Degeneration of intervertebral disc of lumbosacral region - C - ICD9: 722.52, ICD10: M51.37 (primary diagnosis) The OARRS report has been reviewed and is consistent with the patients medical history and medication intake. Continue with the gabapentin, celecoxib, and tizandine Continue with core strengthening and range of motion exercises Let us know if you'd like to try trigger point injections and we will get these scheduled. FU in the office in 3-4 months. Discuss your blood pressure with your family doctor - BP 152/86 2. Pelvic Fracture NOS - closed - C - ICD9: [id number], ICD10: S32.9XXA 3. Fracture lumbar vertebra - closed - C - ICD9: 805.4, ICD10: S32.020A Lupe Fortune PA-C [facility] 03-20-2023 History of Presen t illness Narrative This note was created using NoteWriter. Subjective Marty Antunez is a 77 year old male. The patient primarily being seen for back pain-[facility] Patient was last seen on: 11/14/22 At that time, the treatment plan was: see notes Current Meds: Gabapentin last pm/ Celebrex yest./ Tizanidine last pm Efficacy: helpful Side effects: denies TENS unit: How often used: Benefit: Physical Therapy: Last UDS: Last injection: OARRS reviewed At the present time, the patient reports benefit with his present analgesic therapy. He denies any adverse effects. Since his previous visit, he denies any hospitalizations or ER visits. Otherwise, he has nothing further to discuss at this time. INTAKE PAIN ASSESSMENT 02/14/2023 03/20/2023 Are you having pain associated with your visit today? 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 Spinal cord injury 08/16/1979 Fall at work, left leg atrophy Urinary retention 02/17/2011 PAST SURGICAL HISTORY Procedure Laterality Date COLONOSCOPY FLX DX W/COLLJ SPEC WHEN PFRMD 11/2003 Colonoscopy COLONOSCOPY FLX DX W/COLLJ SPEC WHEN PFRMD 02/23/2012 Colonoscopy COLONOSCOPY FLX DX W/COLLJ SPEC WHEN PFRMD 05/04/2018 Colonoscopy NEUROPLASTY &/TRANSPOS MEDIAN NRV CARPAL TUNNE 2009 Carpal tunnel decomp, LEFT NEUROPLASTY &/TRANSPOSITION ULNAR NERVE WRIST 2009 LEFT OPEN REPAIR OF ROTATOR CUFF ACUTE 1992 Rotator cuff repair, LEFT TONSILLECTOMY & ADENOIDECTOMY <AGE 13 1950 Social History Tobacco Use Smoking status: Never Smokeless tobacco: Never Vaping Use Vaping Use: Never used Substance Use Topics Alcohol use: Not Currently Drug use: Never Review of Systems Constitutional: Negative for fever and unexpected weight change. Musculoskeletal: +back pain, joint pain, numbness, tingling, muscle cramps/weakness, stiffness, arthritis, sciatica, and leg pain with exertion. Objective BP 152/86 (BP Site: Left Arm, BP Position: Sitting, BP Cuff Size: Large Adult) Pulse 79 Temp 36.3 C (97.4 F) (Temporal) Resp 18 SpO2 97% Physical Exam Vitals and nursing note reviewed. Constitutional: Appearance: Normal appearance. He is well-developed, well-groomed and normal weight. HENT: Head: Normocephalic and atraumatic. Right Ear: Hearing normal. Left Ear: Hearing normal. Eyes: Conjunctiva/sclera: Conjunctivae normal. Musculoskeletal: Comments: He is using a cane for assistance with his gait. There is tenderness to palpation in the lumbar region with spasms in the trapezius, paraspinal, and latissimus dorsi muscles. Strength is 4-5/5 in the LLE. He has atrophy noted in the LLE. Sensation is decreased in the lateral LLE, worse around the proximal lateral thigh. SLR is negative. He has a brace present on the left ankle. Neurological: Mental Status: He is alert and oriented to person, place, and time. Psychiatric: Attention and Perception: Attention and perception normal. Mood and Affect: Mood and affect normal. Speech: Speech normal. Behavior: Behavior normal. Behavior is cooperative. Thought Content: Thought content normal. Judgment: Judgment normal. Assessment and Plan ASSESSMENT/PLAN: 1. Degeneration of intervertebral disc of lumbosacral region - [facility] - ICD9: 722.52, ICD10: M51.37 (primary diagnosis) The OARRS report has been reviewed and is consistent with the patients medical history and medication intake. Continue with the gabapentin, celecoxib, and tizandine Continue with core strengthening and range of motion exercises Let us know if you'd like to try trigger point injections and we will get these scheduled. FU in the office in 3-4 months. Discuss your blood pressure with your family doctor - BP 152/86 2. Pelvic Fracture NOS - closed - [facility] - ICD9: [id number], ICD10: S32.9XXA 3. Fracture lumbar vertebra - closed - [facility] - ICD9: 805.4, ICD10: S32.020A Lupe Fortune PA-C documented in this encounter [facility] 02-14-2023 History of Presen t illness Narrative Radiology Service Progress Note PATIENT NAME: Marty Antunez DATE OF SERVICE: February 14, 2023 TIME: 11:05 AM PATIENT IDENTITY VERIFICATION COMPLETED USING TWO (2) IDENTIFIERS: Name and Date of confirmed by patient verbally. FALL SCREENING: Has the patient had 2 falls in the last year or 1 fall with injury or currently using an Ambulatory Assistive Device (Walker, Cane, Wheelchair, Crutches, etc.)? No PATIENT GENDER DATA: Male PATIENT RELEVANT IMPLANT DATA REVIEWED: Not Applicable RADIOLOGY DEPARTMENT: Bone Density PERIPHERAL IV DATA: Not applicable SIGNED BY: RT Alie(R) February 14, 2023 11:05 AM documented in this encounter [facility] 02-14-2023 Note HNO ID: [id number] Author: Edmund Carpenter RT(Jaime) Service: ? Author Type: Technologist Type: Progress Notes Filed: 02/14/2023 11:18 AM Note Text: Radiology Service Progress Note PATIENT NAME: Marty Antunez DATE OF SERVICE: February 14, 2023 TIME: 11:05 AM PATIENT IDENTITY VERIFICATION COMPLETED USING TWO (2) IDENTIFIERS: Name and Date of confirmed by patient verbally. FALL SCREENING: Has the patient had 2 falls in the last year or 1 fall with injury or currently using an Ambulatory Assistive Device (Walker, Cane, Wheelchair, Crutches, etc.)? No PATIENT GENDER DATA: Male PATIENT RELEVANT IMPLANT DATA REVIEWED: Not Applicable RADIOLOGY DEPARTMENT: Bone Density PERIPHERAL IV DATA: Not applicable SIGNED BY: RT Alie(R) February 14, 2023 11:05 AM [facility] 02-14-2023 Note HNO ID: [id number] Author: Nelson Rea MD Service: ? Author Type: Physician Type: Progress Notes Filed: 02/14/2023 10:33 AM Note Text: This note was created using Xquvariter. Subjective Marty Antunez is a 77 year old male. He noted a chronic dry cough since spring. He first thought seasonal allergies, then wildfire smog, but this has persisted. He now correlated this with initiation of lisinopril for hypertension. Lipids were controlled. He had x rays indicative of osteoporosis, and in fact knew he was losing height from changes in the fit of his coats. Review of Systems Constitutional: Negative for appetite change, diaphoresis, fatigue, fever and unexpected weight change. HENT: Positive for postnasal drip. Negative for sore throat. Respiratory: Negative for chest tightness, shortness of breath and wheezing. Gastrointestinal: Negative. Neurological: Negative for dizziness and headaches. ACTIVE PROBLEM LIST Bph With Obstruction/Lower Urinary Tract Symptoms Allergic Rhinitis Chronic Back Pain History of spinal cord injury, lumbar, left leg atrophy and paresis. 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 tamsulosin (FLOMAX) 0.4 mg Take 1 capsule by mouth once daily. latanoprost, PF, 0.005 % drop Use 1 Drop in eyes daily at bedtime. gabapentin (NEURONTIN) 300 mg capsule Take 1 capsule by mouth twice daily. tiZANidine (ZANAFLEX) 4 mg tablet Take 1 tablet by mouth every 8 hours as needed. atorvastatin (LIPITOR) 20 mg tablet Take 1 tablet by mouth daily at bedtime. For cholesterol. Omeprazole Magnesium (PRILOSEC OTC) 20 mg tablet Take 1 tablet by mouth daily at bedtime. 1/2 hr before meal. melatonin 10 mg cap Take 1 capsule by mouth at bedtime as needed. Ascorbic Acid 1,000 mg tablet Take 1 tablet by mouth once daily. losartan (COZAAR) 25 mg tablet Take 1 tablet by mouth once daily. No current facility-administered medications for this visit. Objective BP 134/76 (BP Site: Left Arm, BP Position: Sitting, BP Cuff Size: Large Adult) Pulse 80 Resp 16 Wt 70.8 kg (156 lb) BMI 23.04 kg/m? Physical Exam Constitutional: General: He is not in acute distress. Appearance: He is not ill-appearing. HENT: Nose: Nose normal. Neck: Vascular: No carotid bruit. Cardiovascular: Pulses: Normal pulses. Heart sounds: S1 normal. No murmur heard. No gallop. Comments: Increased S2. Pulmonary: Effort: No respiratory distress. Breath sounds: No rhonchi or rales. Comments: Rare wheeze. Musculoskeletal: Right lower leg: No edema. Left lower leg: No edema. Lymphadenopathy: Cervical: No cervical adenopathy. Neurological: Mental Status: He is alert. Assessment and Plan 1. Chronic cough - ICD9: 786.2, ICD10: R05.3 (primary diagnosis) Rei inhibitor cough. Discontinue LISINOPRIL. Expect improvement in a few weeks. If no change, return for reevaluation. 2. Fracture lumbar vertebra - closed - [facility] - ICD9: 805.4, ICD10: S32.020A - DXA-AXIAL SKELETON 3. Primary hypertension - ICD9: 401.9, ICD10: I10 Fair. - LOSARTAN 25 MG TABLET. New medication. Discussed medication dosage, usage, goals of therapy, and side effects. - CBC 4. Dyslipidemia - ICD9: 272.4, ICD10: E78.5 - Controlled - Continue current medications - COMP METABOLIC PANEL - LIPID PANEL BASIC 5. Age related osteoporosis, unspecified pathological fracture presence - ICD9: 733.01, ICD10: M81.0 - Reviewed the need for Calcium and Vitamin D supplements and weight bearing exercise as tolerated - DXA-AXIAL SKELETON - VITAMIN D 25 HYDROXY - We discussed likely need to start ALENDRONATE. Discussed medication dosage, usage, goals of therapy, and side effects. 6. Nonrheumatic aortic valve insufficiency - ICD9: 424.1, ICD10: I35.1 Repeat echo next year. Nelson Rea MD [facility] 02-14-2023 History of Presen t illness Narrative This note was created using Partlyter. Subjective Marty Antunez is a 77 year old male. He noted a chronic dry cough since spring. He first thought seasonal allergies, then wildfire smog, but this has persisted. He now correlated this with initiation of lisinopril for hypertension. Lipids were controlled. He had x rays indicative of osteoporosis, and in fact knew he was losing height from changes in the fit of his coats. Review of Systems Constitutional: Negative for appetite change, diaphoresis, fatigue, fever and unexpected weight change. HENT: Positive for postnasal drip. Negative for sore throat. Respiratory: Negative for chest tightness, shortness of breath and wheezing. Gastrointestinal: Negative. Neurological: Negative for dizziness and headaches. ACTIVE PROBLEM LIST Bph With Obstruction/Lower Urinary Tract Symptoms Allergic Rhinitis Chronic Back Pain History of spinal cord injury, lumbar, left leg atrophy and paresis. 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 tamsulosin (FLOMAX) 0.4 mg Take 1 capsule by mouth once daily. latanoprost, PF, 0.005 % drop Use 1 Drop in eyes daily at bedtime. gabapentin (NEURONTIN) 300 mg capsule Take 1 capsule by mouth twice daily. tiZANidine (ZANAFLEX) 4 mg tablet Take 1 tablet by mouth every 8 hours as needed. atorvastatin (LIPITOR) 20 mg tablet Take 1 tablet by mouth daily at bedtime. For cholesterol. Omeprazole Magnesium (PRILOSEC OTC) 20 mg tablet Take 1 tablet by mouth daily at bedtime. 1/2 hr before meal. melatonin 10 mg cap Take 1 capsule by mouth at bedtime as needed. Ascorbic Acid 1,000 mg tablet Take 1 tablet by mouth once daily. losartan (COZAAR) 25 mg tablet Take 1 tablet by mouth once daily. No current facility-administered medications for this visit. Objective BP 134/76 (BP Site: Left Arm, BP Position: Sitting, BP Cuff Size: Large Adult) Pulse 80 Resp 16 Wt 70.8 kg (156 lb) BMI 23.04 kg/m Physical Exam Constitutional: General: He is not in acute distress. Appearance: He is not ill-appearing. HENT: Nose: Nose normal. Neck: Vascular: No carotid bruit. Cardiovascular: Pulses: Normal pulses. Heart sounds: S1 normal. No murmur heard. No gallop. Comments: Increased S2. Pulmonary: Effort: No respiratory distress. Breath sounds: No rhonchi or rales. Comments: Rare wheeze. Musculoskeletal: Right lower leg: No edema. Left lower leg: No edema. Lymphadenopathy: Cervical: No cervical adenopathy. Neurological: Mental Status: He is alert. Assessment and Plan 1. Chronic cough - ICD9: 786.2, ICD10: R05.3 (primary diagnosis) Rei inhibitor cough. Discontinue LISINOPRIL. Expect improvement in a few weeks. If no change, return for reevaluation. 2. Fracture lumbar vertebra - closed - [facility] - ICD9: 805.4, ICD10: S32.020A - DXA-AXIAL SKELETON 3. Primary hypertension - ICD9: 401.9, ICD10: I10 Fair. - LOSARTAN 25 MG TABLET. New medication. Discussed medication dosage, usage, goals of therapy, and side effects. - CBC 4. Dyslipidemia - ICD9: 272.4, ICD10: E78.5 - Controlled - Continue current medications - COMP METABOLIC PANEL - LIPID PANEL BASIC 5. Age related osteoporosis, unspecified pathological fracture presence - ICD9: 733.01, ICD10: M81.0 - Reviewed the need for Calcium and Vitamin D supplements and weight bearing exercise as tolerated - DXA-AXIAL SKELETON - VITAMIN D 25 HYDROXY - We discussed likely need to start ALENDRONATE. Discussed medication dosage, usage, goals of therapy, and side effects. 6. Nonrheumatic aortic valve insufficiency - ICD9: 424.1, ICD10: I35.1 Repeat echo next year. Nelson Rea MD documented in this encounter [facility] 01-31-2023 Miscellaneous Notes Duplicated request. PALAK: 08/17/2022 Last refill: 11/08/2022 QTY: 30 Refills: 2 documented in this encounter [facility] 01-31-2023 Miscellaneous Notes Patient has been identified by name and date of : Yes Requested Prescriptions Pending Prescriptions Disp Refills celecoxib (CELEBREX) 200 mg capsule 30 capsule 2 Sig: Take 1 capsule by mouth once daily. RX INSTRUCTIONS: Patient aware RX will be sent to pharmacy. No need to notify patient. Patient last office visit: 08/17/22 Patient next office visit: 02/14/23 Simran Goel MA documented in this encounter [facility] 01-17-2023 Instructions Kimberley Hawley PA-C - 01/17/2023 10:43 AM EDT > Flomax Refilled > 1 year Appt w/ B. MARIANO Hawley, JOYCE TOTH with PSA prior documented in this encounter [facility] 01-17-2023 History of Presen t illness Narrative Images from the original note were not included. [facility] ESTABLISHED PATIENT CLINIC NOTE Some elements copied from his previous note, which have been updated where appropriate, and all reflect current medical decision making from date of this visit. NAME: Marty Antunez CHIEF COMPLAINT: BPH PSA Follow up HISTORY OF PRESENT ILLNESS: Marty Antunez is a 77 year old Male with BPH w/LUTS presenting for annual follow up The patient reports doing well , urgency is improved, no Ditropan needed at this time PSA - 2.53 Other symptoms: LABS: Hematocrit (%) Date Value 06/17/2022 38.8 06/15/2021 43.1 12/02/2016 44.4 10/22/2013 43.8 PSA (ng/mL) Date Value 01/11/2023 2.53 01/14/2022 2.58 01/19/2021 2.69 04/04/2020 2.54 04/04/2019 2.82 01/02/2014 1.93 No results found for: TESTOST MEDICATIONS: celecoxib (CELEBREX) 200 mg capsule Take 1 capsule by mouth once daily. latanoprost, PF, 0.005 % drop Use 1 Drop in eyes daily at bedtime. gabapentin (NEURONTIN) 300 mg capsule Take 1 capsule by mouth twice daily. tiZANidine (ZANAFLEX) 4 mg tablet Take 1 tablet by mouth every 8 hours as needed. lisinopril (ZESTRIL) 10 mg tablet Take 1 tablet by mouth once daily. atorvastatin (LIPITOR) 20 mg tablet Take 1 tablet by mouth daily at bedtime. For cholesterol. tamsulosin (FLOMAX) 0.4 mg take 1 capsule by mouth once daily Omeprazole Magnesium (PRILOSEC OTC) 20 mg tablet Take 1 tablet by mouth daily at bedtime. 1/2 hr before meal. melatonin 10 mg cap Take 1 capsule by mouth at bedtime as needed. Ascorbic Acid 1,000 mg tablet Take 1 tablet by mouth once daily. PAST MEDICAL HISTORY: PAST MEDICAL HISTORY Diagnosis Date BPH with obstruction/lower urinary tract symptoms 09/20/2007 Chronic back pain 03/08/2012 DDD (degenerative disc disease), lumbar Depression Diverticulosis of colon (without mention of hemorrhage) History of multiple trauma 08/16/1979 work related, [facility] History of spinal cord injury, lumbar, left leg atrophy and paresis. 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 All other systems reviewed and are negative PHYSICAL EXAMINATION: Blood pressure 130/84, pulse 86, temperature 36.6 C (97.9 F), temperature source Temporal, resp. rate 14, height 175.3 cm (5' 9 ), weight 70.6 kg (155 lb 9.6 oz), SpO2 100 %. GENERAL: WNL nutrition, no deformities, healthy appearing GENITOURINARY: MALE EXAM: Rectal Exam: Prostate: size (40 grams), symmetrical, nontender, w/o nodules. PROBLEM LIST REVIEW: Yes LABS: Results for orders placed or performed in visit on 01/17/23 UA DIP, URINE (POC) Result Value Ref Range GLUCOSE UA (POCT) Negative Negative mg/dL BILIRUBIN UA (POCT) Negative Negative KETONE UA (POCT) Negative Negative mg/dL SPECIFIC GRAVITY UA (POCT) 1.015 1.005 - 1.030 HEMOGLOBIN/BLOOD UA (POCT) Negative Negative PH UA (POCT) 7.0 4.5 - 8.0 PROTEIN UA (POCT) Negative Negative mg/dL UROBILINOGEN UA (POCT) 0.2 Normal E.U./dL NITRITE UA (POCT) Negative Negative LEUKOCYTES UA (POCT) Negative Negative COLOR UA (POCT) Yellow CLARITY UA (POCT) Clear PROCEDURES: IMAGING: IMPRESSION/PLAN: 77 year old male with 1. BPH with obstruction/lower urinary tract symptoms - ICD9: 600.01, 599.69, ICD10: N40.1, N13.8 > Refilled Flomax > PSA - 2.53 > 1 year Appt w/ B. MARIANO Hawley MT, PA-C with PSA prior Verified name and date of . CC Post Void Residual HPI: Maryt Antunez is a 77 year old male. The patient is here now for an appointment with MARIANO Lopez MT, PA-COV. Procedure: Explained procedure to patient and verbalizes understanding. Performed a PVR. Patient urinated and instructed to empty bladder as much as possible just prior to having PVR done using bladder ultrasound scanner. Results of scan: 59 mL The patient tolerated the procedure well. Plan: Appointment with Kimberley. documented in this encounter [facility] 11-14-2022 Instructions Lupe Fortune PA-C - 11/14/2022 9:31 AM EDT The OARRS report has been reviewed and is consistent with the patients medical history and medication intake. Continue with the gabapentin, celecoxib, and tizandine Continue with core strengthening and range of motion exercises Let us know if you'd like to try trigger point injections and we will get these scheduled. FU in the office in 3-4 months. I discussed the patient with Dr. Godwin who agrees with my assessment and plan. All of the above is to improve functionality and quality of life. No evidence of drug abuse or diversion is seen at this time. documented in this encounter [facility] 11-14-2022 History of Presen t illness Narrative This note was created using Gema Touch. Subjective Marty Antunez is a 77 year old male. The patient primarily being seen for back pain-[facility] Patient was last seen on: 08/15/22 At that time, the treatment plan was: see notes Current Meds: Gabapentin last pm/ Celebrex yest./ tizanidine last pm Efficacy: helpful Side effects: denies TENS unit: How often used: Benefit: Physical Therapy: Last UDS: Last injection: OARRS reviewed At the present time, the patient reports benefit with his present analgesic therapy. He denies any adverse effects. Since his previous visit, he denies any hospitalizations or ER visits. Otherwise, he has nothing further to discuss at this time. INTAKE PAIN ASSESSMENT 08/17/2022 11/14/2022 Are you having pain associated with your visit today? No Yes, Provider notified Pain Scales - Verbal (Numeric Rating or Visual Analog Scale) Pain Level - 3 Pain Location - Back-Lower Description - Burning;Sharp;Dull Duration Amount of Time - - Duration Units - - Frequency - Continuous Intervention/Comfort measure - Medication;Relaxation;Heat;[place] w support Pain Assessment - - HPI PAST MEDICAL HISTORY Diagnosis Date BPH with obstruction/lower urinary tract symptoms 09/20/2007 Chronic back pain 03/08/2012 DDD (degenerative disc disease), lumbar Depression Diverticulosis of colon (without mention of hemorrhage) History of multiple trauma 08/16/1979 work related, [facility] History of spinal cord injury, lumbar, left leg atrophy and paresis. 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 Spinal cord injury 08/16/1979 Fall at work, left leg atrophy Urinary retention 02/17/2011 PAST SURGICAL HISTORY Procedure Laterality Date COLONOSCOPY FLX DX W/COLLJ SPEC WHEN PFRMD 11/2003 Colonoscopy COLONOSCOPY FLX DX W/COLLJ SPEC WHEN PFRMD 02/23/2012 Colonoscopy COLONOSCOPY FLX DX W/COLLJ SPEC WHEN PFRMD 05/04/2018 Colonoscopy NEUROPLASTY &/TRANSPOS MEDIAN NRV CARPAL TUNNE 2009 Carpal tunnel decomp, LEFT NEUROPLASTY &/TRANSPOSITION ULNAR NERVE WRIST 2009 LEFT OPEN REPAIR OF ROTATOR CUFF ACUTE 1992 Rotator cuff repair, LEFT TONSILLECTOMY & ADENOIDECTOMY <AGE 13 1950 Social History Tobacco Use Smoking status: Never Smokeless tobacco: Never Vaping Use Vaping Use: Never used Substance Use Topics Alcohol use: Yes Comment: rare wine Drug use: No Review of Systems Constitutional: Negative for fever and unexpected weight change. Musculoskeletal: +back pain, joint pain, numbness, tingling, muscle cramps/weakness, stiffness, arthritis, sciatica, and leg pain with exertion. Objective BP 128/56 (BP Site: Left Arm, BP Position: Sitting, BP Cuff Size: Large Adult) Pulse 85 Temp 36.4 C (97.5 F) (Temporal) Resp 18 SpO2 96% Physical Exam Vitals and nursing note reviewed. Constitutional: Appearance: Normal appearance. He is well-developed, well-groomed and normal weight. HENT: Head: Normocephalic and atraumatic. Right Ear: Hearing normal. Left Ear: Hearing normal. Eyes: Conjunctiva/sclera: Conjunctivae normal. Musculoskeletal: Comments: He is using a cane for assistance with his gait. There is tenderness to palpation in the lumbar region with spasms in the trapezius, paraspinal, and latissimus dorsi muscles. Strength is 4-5/5 in the LLE. He has atrophy noted in the LLE. Sensation is decreased in the lateral LLE, worse around the proximal lateral thigh. SLR is negative. He has a brace present on the left ankle. Neurological: Mental Status: He is alert and oriented to person, place, and time. Psychiatric: Attention and Perception: Attention and perception normal. Mood and Affect: Mood and affect normal. Speech: Speech normal. Behavior: Behavior normal. Behavior is cooperative. Thought Content: Thought content normal. Judgment: Judgment normal. Assessment and Plan ASSESSMENT/PLAN: 1. Degeneration of intervertebral disc of lumbosacral region - [facility] - ICD9: 722.52, ICD10: M51.37 (primary diagnosis) The OARRS report has been reviewed and is consistent with the patients medical history and medication intake. Continue with the gabapentin, celecoxib, and tizandine Continue with core strengthening and range of motion exercises Let us know if you'd like to try trigger point injections and we will get these scheduled. FU in the office in 3-4 months. 2. Pelvic Fracture NOS - closed - [facility] - ICD9: [id number], ICD10: S32.9XXA 3. Fracture lumbar vertebra - closed - [facility] - ICD9: 805.4, ICD10: S32.020A Lupe Fortune PA-C documented in this encounter [facility] 10-11-2022 Miscellaneous Notes Marty our office did receive your refill request for Gabapentin (Neurontin) however, a new prescription was sent to [facility] 08/15/2022 for 60 capsules, 11 refills to end on 08/16/2023. Please check with your pharmacy, you should have refill or they may have the prescription on file waiting for you to call and authorize it to be filled. documented in this encounter [facility] 10-06-2022 Miscellaneous Notes Patient has been identified by name and date of : Yes, Patient phones for refill(s): Requested Prescriptions Pending Prescriptions Disp Refills celecoxib (CELEBREX) 200 mg capsule 30 capsule 0 Sig: Take 1 capsule by mouth once daily. Date of last office visit in primary care: 08/17/2022 Next appointment scheduled 02/14/2023 Please advise. Thank you. Amirah Hernandez LPN documented in this encounter [facility] 08-17-2022 History of Presen t illness Narrative This note was created using Xquvariter. Subjective Marty Antunez is a 77 year old male. His hypertension was controlled. Back pain was controlled. He had no urine retention or constipation for years. Dr. Tejada was monitoring early glaucoma. He was advised to have a sleep study. 1) Snoring? No. 2) Tired? Yes. 3) Observed apnea? No. 4) Pressure (Hypertension)? Yes. 5) BMI>45? No. 6) Age>50? Yes. 7) Neck circumference >40cm? No. 8) Gender male? Yes. Conclude: Total 3 or more positive responses? Yes. Review of Systems Constitutional: Negative. Negative for fatigue. Respiratory: Negative for chest tightness and shortness of breath. Cardiovascular: Negative for chest pain, palpitations and leg swelling. Genitourinary: Negative. Neurological: Negative for headaches. Psychiatric/Behavioral: Negative for sleep disturbance. ACTIVE PROBLEM LIST Bph With Obstruction/Lower Urinary Tract Symptoms Allergic Rhinitis Chronic Back Pain History of spinal cord injury, lumbar, left leg atrophy and paresis. Dyslipidemia Impaired Fasting Glucose Elevated Psa Gastroesophageal Reflux Disease Actinic Keratosis Due to Exposure to Sunlight Degeneration of intervertebral disc of lumbosacral region - [facility] Pelvic Fracture NOS - closed - [facility] Osteoporosis Other Assisted (Current) Drug Therapy Fracture lumbar vertebra - closed - [facility] Hyperlipidemia Arthritis Nonrheumatic Aortic Valve Insufficiency Primary Hypertension Current Outpatient Medications Medication Sig latanoprost, PF, 0.005 % drop Use in eyes. gabapentin (NEURONTIN) 300 mg capsule Take 1 capsule by mouth twice daily. tiZANidine (ZANAFLEX) 4 mg tablet Take 1 tablet by mouth every 8 hours as needed. lisinopril (ZESTRIL) 10 mg tablet Take 1 tablet by mouth once daily. celecoxib (CELEBREX) 200 mg capsule Take 1 capsule by mouth once daily. atorvastatin (LIPITOR) 20 mg tablet Take 1 tablet by mouth daily at bedtime. For cholesterol. tamsulosin (FLOMAX) 0.4 mg take 1 capsule by mouth once daily Omeprazole Magnesium (PRILOSEC OTC) 20 mg tablet Take 1 tablet by mouth daily at bedtime. 1/2 hr before meal. melatonin 10 mg cap Take 1 capsule by mouth at bedtime as needed. Ascorbic Acid 1,000 mg tablet Take 1 tablet by mouth once daily. No current facility-administered medications for this visit. Objective BP 129/77 (BP Site: Left Arm, BP Position: Sitting, BP Cuff Size: Large Adult) Pulse 88 Resp 16 Wt 73 kg (161 lb) BMI 23.78 kg/m Physical Exam Constitutional: General: He is not in acute distress. Cardiovascular: Rate and Rhythm: Normal rate and regular rhythm. Heart sounds: No murmur heard. No gallop. Pulmonary: Breath sounds: Normal breath sounds. Musculoskeletal: Right lower leg: No edema. Left lower leg: No edema. Neurological: General: No focal deficit present. Mental Status: He is alert. Comments: Ambulatory with cane. Assessment and Plan 1. Raised intraocular pressure of right eye - ICD9: 365.00, ICD10: H40.051 (primary diagnosis) Sleep study order attempted, no covered by Medicare. Patient indicated understanding and willingness to follow recommendations. 2. Primary hypertension - ICD9: 401.9, ICD10: I10 - good control 3. Impaired fasting glucose - ICD9: 790.21, ICD10: R73.01 Stable. 4. Dyslipidemia - ICD9: 272.4, ICD10: E78.5 - good control - Continue current medication. Nelson Rea MD documented in this encounter [facility] 08-15-2022 Miscellaneous Notes Patient has been identified by name and date of : Yes Patient phones for refill(s): Requested Prescriptions Pending Prescriptions Disp Refills gabapentin (NEURONTIN) 300 mg capsule 60 capsule 11 Sig: Take 1 capsule by mouth twice daily. Date of last office visit in primary care: 06/15/2022 3 month follow-up: 08/17/2022 Last 2 Encounter Wt Readings: Date: Wt: 08/15/2022 70.3 kg (155 lb) 06/15/2022 73.5 kg (162 lb) Previous labs/tests for medication: Not applicable Please advise. Thank you. Jaimee Andrade LPN documented in this encounter [facility] 08-15-2022 Miscellaneous Notes The following approved medication requests have been transmitted electronically. Requested Prescriptions Pending Prescriptions Disp Refills tiZANidine (ZANAFLEX) 4 mg tablet 90 tablet 3 Sig: Take 1 tablet by mouth every 8 hours as needed. Lupe Fortune PA-C Per order of Dr Godwin discontinue methocarbamol Requested Prescriptions Pending Prescriptions Disp Refills tiZANidine (ZANAFLEX) 4 mg tablet 90 tablet 3 Sig: Take 1 tablet by mouth every 8 hours as needed. Please review and advise. Melania Campo RN documented in this encounter [facility] 08-15-2022 Instructions Roberto Carlos Godwin MD - 08/15/2022 9:54 AM EDT Patient will be switched from methocarbamol to tizanidine. He will continue with gabapentin and celecoxib. He will continue with core strengthening and range of motion exercises. Follow-up in office in 3 months time. documented in this encounter [facility] 08-15-2022 History of Presen t illness Narrative This note was created using Xquvariter. Subjective Marty Antunez is a 77 year old male. The patient primarily being seen for back pain [facility] Patient was last seen on: 05/16/22 At that time, the treatment plan was: see notes Current Meds: Gabapentin last dose last pm Celebrex last dose last pm,Robaxin last dose last pm Efficacy: Celebrex and gabapentin help a lot not sure if robaxin help Side effects: none TENS unit: no How often used: Benefit: Physical Therapy: Last UDS:no meds Last injection: none OARRS reviewed yes INTAKE PAIN ASSESSMENT 05/19/2022 08/15/2022 Are you having pain associated with your visit today? No Yes, Provider notified Pain Scales - Verbal (Numeric Rating or Visual Analog Scale) Pain Level - 5 Pain Location - Back-Lower Description - Dull;Aching Duration Amount of Time - - Duration Units - - Frequency - Intermittent Intervention/Comfort measure - - Pain Assessment - - HPI Patient is getting adequate relief from the present regimen and denies any side effect from it. This has improved the patient s level of functionality and has been able to perform activities of daily living. The patient exhibits no aberrant behavior. The PDMP report and last UDS are both consistent with prescribed medications and are unremarkable. Review of Systems Constitutional: Negative for fever and unexpected weight change. Musculoskeletal: +back pain, joint pain, numbness, tingling, muscle cramps/weakness, stiffness, arthritis, sciatica, and leg pain with exertion. Objective BP 136/75 Pulse 83 Temp 36.6 C (97.8 F) Resp 18 Ht 175.3 cm (5' 9 ) Wt 70.3 kg (155 lb) SpO2 97% BMI 22.89 kg/m Physical Exam Vitals and nursing note reviewed. Constitutional: Appearance: Normal appearance. He is well-developed, well-groomed and normal weight. HENT: Head: Normocephalic and atraumatic. Right Ear: Hearing and external ear normal. Left Ear: Hearing and external ear normal. Nose: Nose normal. Eyes: General: No scleral icterus. Extraocular Movements: Extraocular movements intact. Conjunctiva/sclera: Conjunctivae normal. Musculoskeletal: Comments: Patient walks with a limp. There is tenderness to palpation in the lumbar region with spasms in the trapezius, paraspinal, and latissimus dorsi muscles. Strength is 4-5/5 in the LLE. He has atrophy noted in the LLE. Sensation is decreased in the LLE, worse around the proximal lateral thigh. SLR is negative. He has a brace present on the left ankle. Skin: General: Skin is warm and dry. Neurological: Mental Status: He is alert and oriented to person, place, and time. Psychiatric: Attention and Perception: Attention and perception normal. Mood and Affect: Mood and affect normal. Speech: Speech normal. Behavior: Behavior normal. Behavior is cooperative. Thought Content: Thought content normal. Judgment: Judgment normal. Assessment and Plan ASSESSMENT/PLAN: 1. Degeneration of intervertebral disc of lumbosacral region - [facility] - ICD9: 722.52, ICD10: M51.37 (primary diagnosis) Patient will be switched from methocarbamol to tizanidine. He will continue with gabapentin and celecoxib. He will continue with core strengthening and range of motion exercises. Follow-up in office in 3 months time. 2. Pelvic Fracture NOS - closed - [facility] - ICD9: [id number], ICD10: S32.9XXA 3. Fracture lumbar vertebra - closed - [facility] - ICD9: 805.4, ICD10: S32.020A 30 minute visit Greater than two stable chronic illness and prescription medication management. This document was transcribed using a voice recognition software and may contain minor errors. Roberto Carlos Godwin MD documented in this encounter [facility] 08-12-2022 Miscellaneous Notes Patient has been identified by name and date of : Yes, Provider Dr. Rea Date 08/12/22 Time 8:43 am Patient phones for refill(s): Requested Prescriptions Pending Prescriptions Disp Refills lisinopril (ZESTRIL) 10 mg tablet 30 tablet 1 Sig: Take 1 tablet by mouth once daily. Date of last office visit in primary care: 06/15/22 next apt 08/17/22 Last 2 Encounter Wt Readings: Date: Wt: 06/15/2022 73.5 kg (162 lb) 05/19/2022 73 kg (161 lb) Previous labs/tests for medication: Blood Pressure: BUN (mg/dL) Date Value 06/17/2022 19 06/15/2021 14 Sodium (mmol/L) Date Value 06/17/2022 134 06/15/2021 134 Last 1 Encounter BP Readings: Date: BP: 06/15/2022 150/92[bp true average[ Please advise. Thank you. Karma Hernandez LPN documented in this encounter [facility] 06-15-2022 History of Presen t illness Narrative CC: Patient presents with: Medicare Wellness Exam HPI Marty Antunez is a 77 year old male who presents today for follow-up. Patient's BP was elevated at last office visit. No history of hypertension. He had reported a gradual decrease in exercise tolerance. EKG indicating LAFB and moderate LVH, changed from 2011. Stress test was ordered and patient had completed a couple weeks ago. BP is still elevated today. He rarely checks at home, unsure of last reading. Denies headaches, SOB, chest pain, palpitations, dizziness/lightheadedness or edema. No new or worsening symptoms since last office visit. 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 Spinal cord injury 08/16/1979 Fall at work, left leg atrophy Urinary retention 02/17/2011 PAST SURGICAL HISTORY Procedure Laterality Date COLONOSCOPY FLX DX W/COLLJ SPEC WHEN PFRMD 11/2003 Colonoscopy COLONOSCOPY FLX DX W/COLLJ SPEC WHEN PFRMD 02/23/2012 Colonoscopy COLONOSCOPY FLX DX W/COLLJ SPEC WHEN PFRMD 05/04/2018 Colonoscopy NEUROPLASTY &/TRANSPOS MEDIAN NRV CARPAL TUNNE 2009 Carpal tunnel decomp, LEFT NEUROPLASTY &/TRANSPOSITION ULNAR NERVE WRIST 2009 LEFT OPEN REPAIR OF ROTATOR CUFF ACUTE 1991 Rotator cuff repair, LEFT TONSILLECTOMY & ADENOIDECTOMY <AGE 13 1950 ALLERGIES Environmental Allergies [Other] MEDICATIONS gabapentin (NEURONTIN) 300 mg capsule^Take 1 capsule by mouth twice daily.^Disp: ^Rfl: lisinopril (ZESTRIL, PRINIVIL) 10 mg tablet^Take 1 tablet by mouth once daily.^Disp: 30 tablet^Rfl: 1 atorvastatin (LIPITOR) 20 mg tablet^Take 1 tablet by mouth daily at bedtime. For cholesterol.^Disp: 90 tablet^Rfl: 3 methocarbamol (ROBAXIN-750) 750 mg tablet^Take 1 tablet by mouth three times daily as needed.^Disp: 90 tablet^Rfl: 3 celecoxib (CELEBREX) 200 mg capsule^Take 1 capsule by mouth once daily.^Disp: 30 capsule^Rfl: 3 tamsulosin (FLOMAX) 0.4 mg^take 1 capsule by mouth once daily^Disp: 90 capsule^Rfl: 3 Omeprazole Magnesium (PRILOSEC OTC) 20 mg tablet^Take 1 tablet by mouth daily at bedtime. 1/2 hr before meal.^Disp: ^Rfl: melatonin 10 mg cap^Take 1 capsule by mouth at bedtime as needed.^Disp: ^Rfl: Ascorbic Acid 1,000 mg tablet^Take 1 tablet by mouth once daily.^Disp: ^Rfl: 0 FAMILY HISTORY Problem Relation Age of Onset Heart Mother CHF, dec. GI Mother GI bleed other (Other) Father Pulmonary fibrosis Colon Cancer Paternal Grandmother None Brother None Brother Social History Tobacco Use Smoking status: Never Smokeless tobacco: Never Vaping Use Vaping Use: Never used Substance Use Topics Alcohol use: Yes Comment: rare wine Drug use: No PHYSICAL EXAM BP 150/92 Pulse 94 Resp 16 Ht 173.4 cm (5' 8.25 ) Wt 73.5 kg (162 lb) BMI 24.45 kg/m General Appearance: well appearing, in no acute distress, alert Pysch: mood and affect broad and appropriate DATA REVIEWED: stress test ASSESSMENT/PLAN: 1. Medicare annual wellness visit, subsequent - ICD9: V70.0, ICD10: Z00.00 (primary diagnosis) See Medicare Wellness note 2. Primary hypertension - ICD9: 401.9, ICD10: I10 Stress test normal, reviewed with patient - newly diagnosed - Begin Lisinopril 10 mg daily - Recommended regular aerobic exercise. - Recommend home blood pressure monitoring, to bring results in on next visit - Goal of BP <130/80 3. Chronic bilateral low back pain with bilateral sciatica - ICD9: 724.2, 724.3, 338.29, ICD10: M54.42, M54.41, G89.29 - GABAPENTIN 300 MG CAPSULE taking only twice a day, dosage updated Prescription instructions reviewed with patient as applicable. Potential red flag symptoms discussed with the patient. Reviewed appropriate action plan to take if red flag symptoms occur. Patient agreeable to treatment plan. Vaishali Garcia APRN.CNP Marty Antunez is a 77 year old male here for a Medicare Subsequent Annual Wellness Visit Health Risk Assessment In general, health is: Very good Concerns with balance:Not at all Concerns with teeth or dentures:Not at all Concerns with sexual function:Not at all [place] anxious, stressed, angry, irritable, lonely, isolated, or had thoughts of hurting themself: Not at all Has little interest or pleasure in doing things: Not at all Bothered by feeling down, depressed, or hopeless: Not at all Needs help with grocery shopping, cooking, housework, bathing, grooming, dressing, eating, sitting or standing, walking, using the toilet, handling finances, taking medications, using the telephone, or driving: No Following safety precautions in the home environment and vehicle: removed throw rugs from floors, installed grab bars in the bathroom, handrails in stairwells, having adequate lighting, wearing seatbelt at all times?: Yes except no grab bars in the bathroom Smokes cigarettes, vapes, or chew tobacco: No Eats healthy foods including fruits, vegetables, whole grains, and fiber-rich foods: Nearly every day Number of days per week engages in exercise: [place] 3 times a week. Mostly leg strengthening exercises. Light weights. Some cardio. Average alcohol consumption: Monthly or less Current Providers Specialists: I have reviewed specialist-related care of the patient in the medical record. Current care team: Patient Care Team: Nelson Rea MD as PCP - General (Internal Medicine) Outside specialists seen: [facility] pain management. [facility] Medical/Family history review Reviewed and updated problem list, medical/surgical/family/social history, medications, and allergies. Opioid use review Patient is not currently using opioids. Depression screening Depression Screening PHQ-2 Score 06/15/2022 0 Depression screening tool completed and reviewed. Based on score and interview, patient is not at risk for depression. Screening tool discussed with patient, and I recommended no further intervention at this time. Cognitive screening Mini Cog Score: 5 Cognitive screening reviewed and no further action needed (score 3-5) Functional Observation Was the patient's timed Up & Go test unsteady or ? 12 seconds? No Advance Care Planning End of Life planning discussed, including patient's advanced directive wishes: Yes Measurements BP 164/89 Pulse 106 Resp 16 Ht 5' 8.25 (1.73m) Wt 162 lb (73.5kg) BMI 24.44 kg/(m^2). Visual acuity (required for Welcome to Medicare): follows with optometry/ophthalmology Hearing Evaluation: within normal limits ASSESSMENT/PLAN: 1. Medicare annual wellness visit, subsequent - ICD9: V70.0, ICD10: Z00.00 (primary diagnosis) - Counseled on healthy diet and regular exercise - Depression screening tool completed and reviewed with patient. Based on score and interview, patient is not at risk for depression and recommended no further intervention at this time. Vaishali Garcia APRN.CNP documented in this encounter [facility] 06-15-2022 Instructions Vaishali Garcia APRN.CNP - 06/15/2022 11:27 AM EST WHAT YOU CAN DO TO PREVENT FALLS Many falls can be prevented. By making some changes, you can lower your chances of falling. Four things YOU can do to prevent falls for you* and your caregiver 1. Begin a regular exercise program Exercise is one of the most important ways to lower your chances of falling. It makes you stronger and helps you feel better. Exercises that improve balance and coordination (like Isaiah Chi) are the most helpful. Lack of exercise leads to weakness and increases your chances of falling. Ask your doctor or health care provider about the best type of exercise program for you. 2. Have your health care provider review your medicines Have your doctor or pharmacist review all the medicines you take, even sglx-srv-natidsr medicines. As you get older, the way medicines work in your body can change. Some medicines, or combinations of medicines, can make you sleepy or dizzy and can cause you to fall. 3. Have your vision checked Have your eyes checked by an eye doctor at least once a year. You may be wearing the wrong glasses or have a condition like glaucoma or cataracts that limits your vision. Poor vision can increase your chances of falling. 4. Make your home safer About half of all falls happen at home. To make your home safer: Remove things you can trip over (like papers, books, clothes, and shoes) from stairs and places where you walk. Remove small throw rugs or use double-sided tape to keep the rugs from slipping. Keep items you use often in cabinets you can reach easily without using a step stool. Have grab bars put in next to your toilet and in the tub or shower. Use non-slip mats in the bathtub and on shower floors. Improve the lighting in your home. As you get older, you need brighter lights to see well. Hang light-weight curtains or shades to reduce glare. Have handrails and lights put in on all staircases. Wear shoes both inside and outside the house. Avoid going barefoot or wearing slippers. For more information, contact: Centers for Disease Control and Prevention www.cdc.gov/injury * This information may not apply if you have certain medical conditions. documented in this encounter [facility] 05-30-2022 Miscellaneous Notes Spoke with patient regarding reminder for stress test tomorrow and given instructions. documented in this encounter [facility] 05-19-2022 History of Presen t illness Narrative Radiology Service Progress Note PATIENT NAME: Marty Antunez DATE OF SERVICE: May 19, 2022 TIME: 3:36 PM PATIENT IDENTITY VERIFICATION COMPLETED USING TWO (2) IDENTIFIERS: Name and Date of confirmed by patient verbally. FALL SCREENING: Has the patient had 2 falls in the last year or 1 fall with injury or currently using an Ambulatory Assistive Device (Walker, Cane, Wheelchair, Crutches, etc.)? No PATIENT GENDER DATA: Male PATIENT RELEVANT IMPLANT DATA REVIEWED: Not Applicable RADIOLOGY DEPARTMENT: General X-ray: Exam(s) Completed: Chest X-Ray PERIPHERAL IV DATA: Not applicable SIGNED BY: RT Valerie(R) May 19, 2022 3:36 PM documented in this encounter [facility] 05-19-2022 History of Presen t illness Narrative This note was created using Partlyter. Subjective Marty Antunez is a 77 year old male. Pain management advised him to have elevated blood pressure evaluated. We have been monitoring borderline elevation of blood pressures. He at first denied any symptoms of cardiovascular awareness, but on further review, he noted gradually progressing dyspnea on exertion for the past year. He had ambulatory limitations and we felt he may not be able to do an exercise stress test. Review of Systems Constitutional: Negative. Respiratory: Positive for shortness of breath. Negative for cough, chest tightness and wheezing. Cardiovascular: Negative for chest pain, palpitations and leg swelling. Gastrointestinal: Negative. Genitourinary: Negative. Musculoskeletal: Positive for gait problem. Neurological: Negative for dizziness, light-headedness and headaches. 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 Elevated Blood Pressure Reading Dyslipidemia Impaired Fasting Glucose Elevated Psa Gastroesophageal Reflux Disease Actinic Keratosis Due to Exposure to Sunlight Degeneration of intervertebral disc of lumbosacral region - [facility] Pelvic Fracture NOS - closed - [facility] Osteoporosis Other Duct Layer Helper (Current) Drug Therapy Fracture lumbar vertebra - closed - [facility] Hyperlipidemia Arthritis Social History Tobacco Use Smoking status: Never Smokeless tobacco: Never Vaping Use Vaping Use: Never used Substance Use Topics Alcohol use: Yes Comment: rare wine Drug use: No Current Outpatient Medications Medication Sig methocarbamol (ROBAXIN-750) 750 mg tablet Take 1 tablet by mouth three times daily as needed. celecoxib (CELEBREX) 200 mg capsule Take 1 capsule by mouth once daily. gabapentin (NEURONTIN) 300 mg capsule Take 1 capsule by mouth three times daily for 120 days. tamsulosin (FLOMAX) 0.4 mg take 1 capsule by mouth once daily Omeprazole Magnesium (PRILOSEC OTC) 20 mg tablet Take 1 tablet by mouth daily at bedtime. 1/2 hr before meal. melatonin 10 mg cap Take 1 capsule by mouth at bedtime as needed. Ascorbic Acid 1,000 mg tablet Take 1 tablet by mouth once daily. atorvastatin (LIPITOR) 20 mg tablet Take 1 tablet by mouth daily at bedtime. For cholesterol. Current Facility-Administered Medications Medication Dose Route Frequency perflutren lipid microspheres 1.3 mL in NaCl (PF) 0.9% 10 mL injection (DEFINITY) INTRAVENOUS DIRECTED PRN sodium chloride 0.9 % (flush) 10 mL (BD POSIFLUSH) 10 mL INTRAVENOUS DIRECTED PRN Objective BP 137/85 (BP Site: Left Arm, BP Position: Sitting, BP Cuff Size: Large Adult) Pulse 101 Resp 16 Wt 73 kg (161 lb) BMI 23.78 kg/m Physical Exam Constitutional: General: He is not in acute distress. Appearance: He is not ill-appearing or diaphoretic. Eyes: Conjunctiva/sclera: Conjunctivae normal. Neck: Vascular: No carotid bruit. Cardiovascular: Rate and Rhythm: Regular rhythm. Tachycardia present. Occasional Extrasystoles are present. Heart sounds: No murmur heard. No gallop. Pulmonary: Effort: Pulmonary effort is normal. Breath sounds: Normal breath sounds. Abdominal: Palpations: Abdomen is soft. Tenderness: There is no abdominal tenderness. Musculoskeletal: Cervical back: Neck supple. Right lower leg: No edema. Left lower leg: No edema. Neurological: Mental Status: He is alert. Gait: Gait abnormal. electrocardiogram NSR, LAFB, moderate LVH. This is changed from EKG in 2012. Assessment and Plan 1. Elevated blood pressure reading - ICD9: 796.2, ICD10: R03.0 (primary diagnosis) - Encouraged dietary sodium restriction/DASH diet - Recommend home blood pressure monitoring, to bring results in on next visit - Reviewed risks of HTN and principles of treatment - Goal of BP <130/80 - ECG COMPLETE 2. Dyslipidemia - ICD9: 272.4, ICD10: E78.5 - to be determined upon return of lab results - Continue current medication. - ATORVASTATIN 20 MG TABLET - COMP METABOLIC PANEL - LIPID PANEL BASIC 3. Tachycardia - ICD9: 785.0, ICD10: R00.0 Significance not clear. - CBC 4. LVH (left ventricular hypertrophy) - ICD9: 429.3, ICD10: I51.7 Etiology TBD. - XR CHEST 2V FRONTAL/LAT - STRESS ECHO DOBUTAMINE - PERFLUTREN LIPID MICROSPHERES 1.1 MG/ML INJECTION IN NS 10 ML - SODIUM CHLORIDE 0.9 % (FLUSH) INJECTION SYRINGE 5. A[place]ORD (dyspnea on exertion) - ICD9: 786.09, ICD10: R06.09 - XR CHEST 2V FRONTAL/LAT - STRESS ECHO DOBUTAMINE - PERFLUTREN LIPID MICROSPHERES 1.1 MG/ML INJECTION IN NS 10 ML - SODIUM CHLORIDE 0.9 % (FLUSH) INJECTION SYRINGE Nelson Rea MD documented in this encounter [facility] 05-16-2022 Instructions Lupe Fortune PA-C - 05/16/2022 9:44 AM EST The OARRS report has been reviewed and is consistent with the patients medical history and medication intake. Continue with the gabapentin, celecoxib, and methocarbamol. Continue with core strengthening and range of motion exercises Let us know if you'd like to try trigger point injections. FU in the office in 3-4 months. He was given a script for a handicap placard. I discussed the patient with Dr. Godwin who agrees with my assessment and plan. All of the above is to improve functionality and quality of life. No evidence of drug abuse or diversion is seen at this time. documented in this encounter [facility] 05-16-2022 History of Presen t illness Narrative This note was created using Partlyter. Subjective Marty Antunez is a 77 year old male. The patient primarily being seen for back pain-[facility] Patient was last seen on: 02/09/22 At that time, the treatment plan was: see notes Current Meds: Gabapentin last pm/ Celebrex last pm/ Robaxin last pm Efficacy: helpful Side effects: denies TENS unit: How often used: Benefit: Physical Therapy: Last UDS: Last injection: OARRS reviewed At the present time, the patient reports benefit with his present analgesic therapy. He denies any adverse effects. Since his previous visit, he denies any hospitalizations or ER visits. Otherwise, he has nothing further to discuss at this time. INTAKE PAIN ASSESSMENT 02/09/2022 05/16/2022 Are you having pain associated with your visit today? 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 Spinal cord injury 08/16/1979 Fall at work, left leg atrophy Urinary retention 02/17/2011 PAST SURGICAL HISTORY Procedure Laterality Date COLONOSCOPY FLX DX W/COLLJ SPEC WHEN PFRMD 11/2003 Colonoscopy COLONOSCOPY FLX DX W/COLLJ SPEC WHEN PFRMD 02/23/2012 Colonoscopy COLONOSCOPY FLX DX W/COLLJ SPEC WHEN PFRMD 05/04/2018 Colonoscopy NEUROPLASTY &/TRANSPOS MEDIAN NRV CARPAL TUNNE 2009 Carpal tunnel decomp, LEFT NEUROPLASTY &/TRANSPOSITION ULNAR NERVE WRIST 2009 LEFT OPEN REPAIR OF ROTATOR CUFF ACUTE 1992 Rotator cuff repair, LEFT TONSILLECTOMY & ADENOIDECTOMY <AGE 13 1950 Social History Tobacco Use Smoking status: Never Smokeless tobacco: Never Vaping Use Vaping Use: Never used Substance Use Topics Alcohol use: Yes Comment: rare wine Drug use: No HPI Review of Systems Constitutional: Negative for fever and unexpected weight change. Musculoskeletal: +back pain, joint pain, numbness, tingling, muscle cramps/weakness, stiffness, arthritis, sciatica, and leg pain with exertion. Objective BP 150/91 (BP Site: Left Arm, BP Position: Sitting, BP Cuff Size: Regular Adult) Pulse 88 Temp 36.6 C (97.9 F) (Temporal) Resp 18 SpO2 98% Physical Exam Vitals and nursing note reviewed. Constitutional: Appearance: Normal appearance. He is well-developed, well-groomed and normal weight. HENT: Head: Normocephalic and atraumatic. Right Ear: Hearing normal. Left Ear: Hearing normal. Eyes: Conjunctiva/sclera: Conjunctivae normal. Musculoskeletal: Comments: He is using a cane for assistance with his gait. There is tenderness to palpation in the lumbar region with spasms in the trapezius, paraspinal, and latissimus dorsi muscles. Strength is 4-5/5 in the LLE. He has atrophy noted in the LLE. Sensation is decreased in the LLE, worse around the proximal lateral thigh. SLR is negative. He has a brace present on the left ankle. Neurological: Mental Status: He is alert and oriented to person, place, and time. Psychiatric: Attention and Perception: Attention and perception normal. Mood and Affect: Mood and affect normal. Speech: Speech normal. Behavior: Behavior normal. Behavior is cooperative. Thought Content: Thought content normal. Judgment: Judgment normal. Assessment and Plan ASSESSMENT/PLAN: 1. Degeneration of intervertebral disc of lumbosacral region - [facility] - ICD9: 722.52, ICD10: M51.37 (primary diagnosis) The OARRS report has been reviewed and is consistent with the patients medical history and medication intake. Continue with the gabapentin, celecoxib, and methocarbamol. Continue with core strengthening and range of motion exercises Let us know if you'd like to try trigger point injections. FU in the office in 3-4 months. - PARKING FOR HANDICAPPED 2. Pelvic Fracture NOS - closed - [facility] - ICD9: GBA0510, ICD10: S32.9XXA 3. Fracture lumbar vertebra - closed - [facility] - ICD9: 805.4, ICD10: S32.020A Lupe Fortune PA-C documented in this encounter [facility] 04-28-2022 Miscellaneous Notes Opened in error Melania Campo RN April 28, 2022 3:44 PM documented in this encounter [facility] 04-28-2022 Miscellaneous Notes Opened in error Melania Campo RN April 28, 2022 11:06 AM documented in this encounter [facility] 03-08-2022 Miscellaneous Notes The following approved medication requests have been transmitted electronically. Requested Prescriptions Pending Prescriptions Disp Refills celecoxib (CELEBREX) 200 mg capsule 30 capsule 3 Sig: Take 1 capsule by mouth once daily. Lupe Fortune PA-C Patient phones requesting refills as follows: Requested Prescriptions Pending Prescriptions Disp Refills celecoxib (CELEBREX) 200 mg capsule 30 capsule 3 Sig: Take 1 capsule by mouth once daily. Please review and advise. Melania Campo RN documented in this encounter [facility] 02-09-2022 Instructions Lupe Fortune PA-C - 02/09/2022 9:55 AM EDT The OARRS report has been reviewed and is consistent with the patients medical history and medication intake. Continue with the gabapentin, celecoxib, and methocarbamol. Continue with core strengthening and range of motion exercises Let us know if you'd like to try trigger point injections. FU in the office in 3-4 months. I discussed the patient with Dr. Godwin who agrees with my assessment and plan. All of the above is to improve functionality and quality of life. No evidence of drug abuse or diversion is seen at this time. documented in this encounter [facility] 02-09-2022 History of Presen t illness Narrative This note was created using Xquvariter. Twyla Antunez is a 76 year old male. The patient primarily being seen for back pain-[facility] Patient was last seen on: 11/09/21 At that time, the treatment plan was: see notes Current Meds: Gabapentin last pm/ Celebrex yest./ Robaxin yest. Efficacy: helpful Side effects: denies TENS unit: How often used: Benefit: Physical Therapy: works out at gym Last UDS: Last injection: OARRS reviewed At the present time, the patient reports benefit with his present analgesic therapy. He denies any adverse effects. Since his previous visit, he denies any hospitalizations or ER visits. Otherwise, he has nothing further to discuss at this time. INTAKE PAIN ASSESSMENT 01/18/2022 02/09/2022 Are you having pain associated with your visit today? No Yes, Provider notified Pain Scales - Verbal (Numeric Rating or Visual Analog Scale) Pain Level - 3 Pain Location - Back-Lower Description - Radiating;Dull;Sharp Duration Amount of Time - - Duration Units - - Frequency - Continuous Intervention/Comfort measure - Medication;Relaxation;Heat Pain Assessment - - HPI Review of Systems Constitutional: Negative for fever and unexpected weight change. Musculoskeletal: +back pain, joint pain, numbness, tingling, muscle cramps/weakness, stiffness, arthritis, sciatica, and leg pain with exertion. 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 Spinal cord injury 08/16/1979 Fall at work, left leg atrophy Urinary retention 02/17/2011 PAST SURGICAL HISTORY Procedure Laterality Date COLONOSCOPY FLX DX W/COLLJ SPEC WHEN PFRMD 11/2003 Colonoscopy COLONOSCOPY FLX DX W/COLLJ SPEC WHEN PFRMD 02/23/2012 Colonoscopy COLONOSCOPY FLX DX W/COLLJ SPEC WHEN PFRMD 05/04/2018 Colonoscopy NEUROPLASTY &/TRANSPOS MEDIAN NRV CARPAL TUNNE 2009 Carpal tunnel decomp, LEFT NEUROPLASTY &/TRANSPOSITION ULNAR NERVE WRIST 2008 LEFT OPEN REPAIR OF ROTATOR CUFF ACUTE 1991 Rotator cuff repair, LEFT TONSILLECTOMY & ADENOIDECTOMY <AGE 13 1950 Social History Tobacco Use Smoking status: Never Smokeless tobacco: Never Vaping Use Vaping Use: Never used Substance Use Topics Alcohol use: Yes Comment: rare wine Drug use: No Objective BP 134/89 (BP Site: Left Arm, BP Position: Sitting, BP Cuff Size: Regular Adult) Pulse 87 Temp 36.2 C (97.1 F) (Temporal) Resp 18 SpO2 99% Physical Exam Vitals and nursing note reviewed. Constitutional: Appearance: Normal appearance. He is well-developed, well-groomed and normal weight. HENT: Head: Normocephalic and atraumatic. Right Ear: Hearing normal. Left Ear: Hearing normal. Eyes: Conjunctiva/sclera: Conjunctivae normal. Musculoskeletal: Comments: He is using a cane for assistance with his gait. There is tenderness to palpation in the lumbar region with spasms in the trapezius, paraspinal, and latissimus dorsi muscles. Strength is 4-5/5 in the LLE. He has atrophy noted in the LLE. Sensation is decreased in the LLE, worse around the proximal lateral thigh. SLR is negative. He has a brace present on the left ankle. Neurological: Mental Status: He is alert and oriented to person, place, and time. Psychiatric: Attention and Perception: Attention and perception normal. Mood and Affect: Mood and affect normal. Speech: Speech normal. Behavior: Behavior normal. Behavior is cooperative. Thought Content: Thought content normal. Judgment: Judgment normal. Assessment and Plan ASSESSMENT/PLAN: 1. Degeneration of intervertebral disc of lumbosacral region - [facility] - ICD9: 722.52, ICD10: M51.37 (primary diagnosis) The OARRS report has been reviewed and is consistent with the patients medical history and medication intake. Continue with the gabapentin, celecoxib, and methocarbamol. Continue with core strengthening and range of motion exercises Let us know if you'd like to try trigger point injections. FU in the office in 3-4 months. 2. Pelvic Fracture NOS - closed - [facility] - ICD9: [id number], ICD10: S32.9XXA 3. Fracture lumbar vertebra - closed - [facility] - ICD9: 805.4, ICD10: S32.020A Lupe Fortune PA-C documented in this encounter [facility] 01-18-2022 History of Presen t illness Narrative Images from the original note were not included. [facility] ESTABLISHED PATIENT CLINIC NOTE Some elements copied from his previous note, which have been updated where appropriate, and all reflect current medical decision making from date of this visit. SERVICE DATE: 01/18/2022 SERVICE TIME: 1:34 PM NAME: Marty Antunez CHIEF COMPLAINT: BPH PSA Follow up HISTORY OF PRESENT ILLNESS: Marty Antunez is a 76 year old Male with PMH including BPH w/LUTS presenting for annual follow up The patient reports doing well even improved with slightly lower PSA this year [place] DYSURIA: no URGENCY: Yes NOCTURIA: 2 per night Other symptoms: LABS: Hematocrit (%) Date Value 06/15/2021 43.1 12/02/2016 44.4 10/22/2013 43.8 PSA (ng/mL) Date Value 01/14/2022 2.58 01/19/2021 2.69 04/04/2020 2.54 04/04/2019 2.82 01/02/2014 1.93 No results found for: TESTOST MEDICATIONS: gabapentin (NEURONTIN) 300 mg capsule Take 1 capsule by mouth three times daily for 120 days. tamsulosin (FLOMAX) 0.4 mg take 1 capsule by mouth once daily celecoxib (CELEBREX) 200 mg capsule Take 1 capsule by mouth once daily. methocarbamol (ROBAXIN-750) 750 mg tablet Take 1 tablet by mouth three times daily as needed. atorvastatin (LIPITOR) 20 mg tablet Take 1 tablet by mouth daily at bedtime. For cholesterol. Omeprazole Magnesium (PRILOSEC OTC) 20 mg tablet Take 1 tablet by mouth daily at bedtime. 1/2 hr before meal. melatonin 10 mg cap Take 1 capsule by mouth at bedtime as needed. Ascorbic Acid 1,000 mg tablet Take 1 tablet by mouth once daily. 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 Spinal cord injury 08/16/1979 Fall at work, left leg atrophy Urinary retention 02/17/2011 PAST SURGICAL HISTORY: PAST SURGICAL HISTORY Procedure Laterality Date COLONOSCOPY FLX DX W/COLLJ SPEC WHEN PFRMD 11/2003 Colonoscopy COLONOSCOPY FLX DX W/COLLJ SPEC WHEN PFRMD 02/23/2012 Colonoscopy COLONOSCOPY FLX DX W/COLLJ SPEC WHEN PFRMD 05/04/2018 Colonoscopy NEUROPLASTY &/TRANSPOS MEDIAN NRV CARPAL TUNNE 2009 Carpal tunnel decomp, LEFT NEUROPLASTY &/TRANSPOSITION ULNAR NERVE WRIST 2008 LEFT OPEN REPAIR OF ROTATOR CUFF ACUTE 1992 Rotator cuff repair, LEFT TONSILLECTOMY & ADENOIDECTOMY <AGE 13 1950 FAMILY HISTORY: FAMILY HISTORY Problem Relation Age of Onset Heart Mother CHF, dec. GI Mother GI bleed other (Other) Father Pulmonary fibrosis Colon Cancer Paternal Grandmother None Brother None Brother SOCIAL HISTORY: Social Connections: Moderately Isolated Frequency of Communication with Friends and Family: More than three times a week Frequency of Social Gatherings with Friends and Family: Three times a week Attends Congregation Services: Never Active Member of Clubs or Organizations: Yes Attends Club or Organization Meetings: More than 4 times per year Marital Status: REVIEW OF SYSTEMS: GENERAL: No fever, chills, weight loss, or fatigue. All other systems reviewed and are negative PHYSICAL EXAMINATION: Blood pressure 142/86, pulse 96, temperature 36.7 C (98.1 F), temperature source Temporal, resp. rate 16, height 175.3 cm (5' 9 ), weight 72.1 kg (159 lb), SpO2 98 %. GENERAL: WNL nutrition, no deformities, healthy appearing NEURO: Awake, alert and oriented x 3 and Normal gait PSYCH: No signs of depression, anxiety, or agitation ENMT (Ear, Nose, Mouth, Throat): No masses, adenopathy, icterus. Thyroid nonpalpable RESP: NL effort, no retractions or purse-lip breathing. CV: No extremity swelling, varices, edema, pallor, erythema GASTROINTESTINAL: Soft, nontender, nondistended, no masses. HERNIAS: None SKIN: No rash, lesions No palpable lymphadenopathy MUSCULOSKELETAL: Extremities normal. No deformities, edema, clubbing or skin discoloration. GENITOURINARY: MALE EXAM: Rectal Exam: Prostate: size (40 grams), symmetrical, nontender, w/o nodules. PROBLEM LIST REVIEW: Yes LABS: Results for orders placed or performed in visit on 01/18/22 UA DIP, URINE (POC) Result Value Ref Range GLUCOSE UA (POCT) Negative Negative mg/dL BILIRUBIN UA (POCT) Negative Negative KETONE UA (POCT) Negative Negative mg/dL SPECIFIC GRAVITY UA (POCT) 1.015 1.005 - 1.030 HEMOGLOBIN/BLOOD UA (POCT) Negative Negative PH UA (POCT) 6.5 4.5 - 8.0 PROTEIN UA (POCT) Negative Negative mg/dL UROBILINOGEN UA (POCT) 0.2 Normal E.U./dL NITRITE UA (POCT) Negative Negative LEUKOCYTES UA (POCT) Negative Negative COLOR UA (POCT) Yellow CLARITY UA (POCT) Clear PROCEDURES: IMAGING: IMPRESSION/PLAN: 76 year old male with 1. BPH with obstruction/lower urinary tract symptoms - ICD9: 600.01, 599.69, ICD10: N40.1, N13.8 IMPRESSION / PLAN: > History of BPH w LUTS > Continue daily Flomax 0.4 mg > SHARLA : 40 g Benign > PSA today 2.58 > Possible Bladder spasms > may consider anticholinergic if continues with pain - did not need in 2020 but still has some off and on > 1 year Appt w/ MARIANO Hatfield MT, PA-C with PSA prior MARIANO Lopez MT, PA-C Verified name and date of . CC Post Void Residual HPI: Marty Antunez is a 76 year old male. The patient is here now for an appointment with MARIANO Lopez MT, PA-COV. Procedure: Explained procedure to patient and verbalizes understanding. Performed a PVR. Patient urinated and instructed to empty bladder as much as possible just prior to having PVR done using bladder ultrasound scanner. Results of scan: 73 mL The patient tolerated the procedure well. Plan: Appointment with Kimberley. documented in this encounter [facility] 01-04-2022 Miscellaneous Notes The following approved medication requests have been transmitted electronically. Requested Prescriptions Pending Prescriptions Disp Refills gabapentin (NEURONTIN) 300 mg capsule 90 capsule 3 Sig: Take 1 capsule by mouth three times daily for 120 days. Lupe Fortune PA-C Patient phones requesting refills as follows: Requested Prescriptions Pending Prescriptions Disp Refills gabapentin (NEURONTIN) 300 mg capsule 90 capsule 3 Sig: Take 1 capsule by mouth three times daily for 30 days. Melania Campo RN documented in this encounter [facility] 11-09-2021 Instructions Lupe Fortune PA-C - 11/09/2021 10:59 AM EDT The OARRS report has been reviewed and is consistent with the patients medical history and medication intake. Continue with the gabapentin, celecoxib, and methocarbamol. Continue with core strengthening and range of motion exercises Let us know if you'd like to try trigger point injections. FU in the office in 3-4 months. Monitor your blood pressure with your family doctor - BP 151/93 I discussed the patient with Dr. Godwin who agrees with my assessment and plan. All of the above is to improve functionality and quality of life. No evidence of drug abuse or diversion is seen at this time. documented in this encounter [facility] 11-09-2021 History of Presen t illness Narrative This note was created using Xquvariter. Subjective Marty Antunez is a 76 year old male. The patient primarily being seen for back pain - [facility] Patient was last seen on: 08/09/21 At that time, the treatment plan was: see notes Current Meds: Gabapentin - last dose last pm, Celebrex - yesterday Methocarbomol - yesterday Efficacy: help Side effects: none TENS unit: Had one but didn't help How often used: Benefit: Physical Therapy: Does exercises on his own Last UDS: No narcotics Last injection: none OARRS reviewed At the present time, the patient reports benefit with his present analgesic therapy. He denies any adverse effects. Since his previous visit, he denies any hospitalizations or ER visits. Otherwise, he has nothing further to discuss at this time. HPI Review of Systems Constitutional: Negative for fever and unexpected weight change. Musculoskeletal: +back pain, joint pain, numbness, tingling, muscle cramps/weakness, stiffness, arthritis, sciatica, and leg pain with exertion. 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 Spinal cord injury 08/16/1979 Fall at work, left leg atrophy Urinary retention 02/17/2011 PAST SURGICAL HISTORY Procedure Laterality Date COLONOSCOPY FLX DX W/COLLJ SPEC WHEN PFRMD 11/2003 Colonoscopy COLONOSCOPY FLX DX W/COLLJ SPEC WHEN PFRMD 02/23/2012 Colonoscopy COLONOSCOPY FLX DX W/COLLJ SPEC WHEN PFRMD 05/04/2018 Colonoscopy NEUROPLASTY &/TRANSPOS MEDIAN NRV CARPAL TUNNE 2009 Carpal tunnel decomp, LEFT NEUROPLASTY &/TRANSPOSITION ULNAR NERVE WRIST 2009 LEFT OPEN REPAIR OF ROTATOR CUFF ACUTE 1991 Rotator cuff repair, LEFT TONSILLECTOMY & ADENOIDECTOMY <AGE 13 1950 Social History Tobacco Use Smoking status: Never Smoker Smokeless tobacco: Never Used Vaping Use Vaping Use: Never used Substance Use Topics Alcohol use: Yes Comment: rare wine Drug use: No Objective BP 143/92 (BP Site: Left Arm, BP Position: Sitting, BP Cuff Size: Large Adult) Pulse 71 Temp 36.2 C (97.2 F) (Temporal) Resp 20 Ht 175.3 cm (5' 9 ) Wt 70.3 kg (155 lb) SpO2 98% BMI 22.89 kg/m Physical Exam Vitals and nursing note reviewed. Constitutional: Appearance: Normal appearance. He is well-developed, well-groomed and normal weight. HENT: Head: Normocephalic and atraumatic. Right Ear: Hearing normal. Left Ear: Hearing normal. Eyes: Conjunctiva/sclera: Conjunctivae normal. Musculoskeletal: Comments: He walks with a limp. There is tenderness to palpation in the lumbar region with spasms in the trapezius, paraspinal, and latissimus dorsi muscles. Strength is 4-5/5 in the LLE. He has atrophy noted in the LLE. Sensation is decreased in the LLE, worse around the proximal lateral thigh. SLR is negative. He has a brace present on the left ankle. Neurological: Mental Status: He is alert and oriented to person, place, and time. Psychiatric: Attention and Perception: Attention and perception normal. Mood and Affect: Mood and affect normal. Speech: Speech normal. Behavior: Behavior normal. Behavior is cooperative. Thought Content: Thought content normal. Cognition and Memory: Cognition and memory normal. Judgment: Judgment normal. Assessment and Plan ASSESSMENT/PLAN: 1. Degeneration of intervertebral disc of lumbosacral region - [facility] - ICD9: 722.52, ICD10: M51.37 (primary diagnosis) The OARRS report has been reviewed and is consistent with the patients medical history and medication intake. Continue with the gabapentin, celecoxib, and methocarbamol. Continue with core strengthening and range of motion exercises Let us know if you'd like to try trigger point injections. FU in the office in 3-4 months. Monitor your blood pressure with your family doctor - BP 151/93 2. Pelvic Fracture NOS - closed - [facility] - ICD9: [id number], ICD10: S32.9XXA 3. Fracture lumbar vertebra - closed - [facility] - ICD9: 805.4, ICD10: S32.020A Lupe Fortune PA-C documented in this encounter [facility] 11-04-2021 Miscellaneous Notes Patient phones requesting refills as follows: Pending Prescriptions Disp Refills CELECOXIB 200 MG CAPSULE 30 capsule 3 Sig: Take 1 capsule by mouth once daily. ARAM: No METHOCARBAMOL 750 MG TABLET 90 tablet 3 Sig: Take 1 tablet by mouth three times daily as needed. Please review and advise. 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 Neoplasm of uncertain behavior of skin 8 03/08/2012 Benign neoplasm of skin of o ther and unspecified parts of face 12/31/2007 11/30/2016 Other chronic dermatitis due to solar radiation 12/31/2007 11/30/2016 Bladder neck obstruction 09/20/2007 012 documented as of this encounter (statuses as of 08/10/2021) [facility] History of Past illness Narrative* Problem Noted Date Resolved Date Urinary retention 02/17/2011 11/30/2016 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 Neoplasm of uncertain behavior of skin 8 03/08/2012 Benign neoplasm of skin of o ther and unspecified parts of face 12/31/2007 11/30/2016 Other chronic dermatitis due to solar radiation 12/31/2007 11/30/2016 Bladder neck obstruction 09/20/2007 012 documented as of this encounter (statuses as of 09/21/2021) [facility] History of Past illness Narrative* Problem Noted Date Resolved Date Urinary retention 02/17/2011 11/30/2016 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 Neoplasm of uncertain behavior of skin 8 03/08/2012 Benign neoplasm of skin of o ther and unspecified parts of face 12/31/2007 11/30/2016 Other chronic dermatitis due to solar radiation 12/31/2007 11/30/2016 Bladder neck obstruction 09/20/2007 012 documented as of this encounter (statuses as of 11/04/2021) [facility] History of Past illness Narrative* Problem Noted Date Resolved Date Urinary retention 02/17/2011 11/30/2016 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 Neoplasm of uncertain behavior of skin 8 03/08/2012 Benign neoplasm of skin of o ther and unspecified parts of face 12/31/2007 11/30/2016 Other chronic dermatitis due to solar radiation 12/31/2007 11/30/2016 Bladder neck obstruction 09/20/2007 012 documented as of this encounter (statuses as of 11/09/2021) [facility] History of Past illness Narrative* Problem Noted Date Resolved Date Urinary retention 02/17/2011 11/30/2016 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 Neoplasm of uncertain behavior of skin 8 03/08/2012 Benign neoplasm of skin of o ther and unspecified parts of face 12/31/2007 11/30/2016 Other chronic dermatitis due to solar radiation 12/31/2007 11/30/2016 Bladder neck obstruction 09/20/2007 012 documented as of this encounter (statuses as of 11/30/2021) [facility] History of Past illness Narrative* Problem Noted Date Resolved Date Urinary retention 02/17/2011 11/30/2016 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 Neoplasm of uncertain behavior of skin 8 03/08/2012 Benign neoplasm of skin of o ther and unspecified parts of face 12/31/2007 11/30/2016 Other chronic dermatitis due to solar radiation 12/31/2007 11/30/2016 Bladder neck obstruction 09/20/2007 012 documented as of this encounter (statuses as of 12/07/2021) [facility] History of Past illness Narrative* Problem Noted Date Resolved Date Urinary retention 02/17/2011 11/30/2016 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 Neoplasm of uncertain behavior of skin 8 03/08/2012 Benign neoplasm of skin of o ther and unspecified parts of face 12/31/2007 11/30/2016 Other chronic dermatitis due to solar radiation 12/31/2007 11/30/2016 Bladder neck obstruction 09/20/2007 012 documented as of this encounter (statuses as of 12/28/2021) [facility] History of Past illness Narrative* Problem Noted Date Resolved Date Urinary retention 02/17/2011 11/30/2016 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 Neoplasm of uncertain behavior of skin 8 03/08/2012 Benign neoplasm of skin of o ther and unspecified parts of face 12/31/2007 11/30/2016 Other chronic dermatitis due to solar radiation 12/31/2007 11/30/2016 Bladder neck obstruction 09/20/2007 012 documented as of this encounter (statuses as of 12/29/2021) [facility] History of Past illness Narrative* Problem Noted Date Resolved Date Urinary retention 02/17/2011 11/30/2016 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 Neoplasm of uncertain behavior of skin 8 03/08/2012 Benign neoplasm of skin of o ther and unspecified parts of face 12/31/2007 11/30/2016 Other chronic dermatitis due to solar radiation 12/31/2007 11/30/2016 Bladder neck obstruction 09/20/2007 012 documented as of this encounter (statuses as of 01/04/2022) [facility] History of Past illness Narrative* Problem Noted Date Resolved Date Urinary retention 02/17/2011 11/30/2016 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 Neoplasm of uncertain behavior of skin 8 03/08/2012 Benign neoplasm of skin of o ther and unspecified parts of face 12/31/2007 11/30/2016 Other chronic dermatitis due to solar radiation 12/31/2007 11/30/2016 Bladder neck obstruction 09/20/2007 012 documented as of this encounter (statuses as of 01/18/2022) [facility] History of Past illness Narrative* Problem Noted Date Resolved Date Urinary retention 02/17/2011 11/30/2016 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 Neoplasm of uncertain behavior of skin 8 03/08/2012 Benign neoplasm of skin of o ther and unspecified parts of face 12/31/2007 11/30/2016 Other chronic dermatitis due to solar radiation 12/31/2007 11/30/2016 Bladder neck obstruction 09/20/2007 012 documented as of this encounter (statuses as of 02/01/2022) [facility] History of Past illness Narrative* Problem Noted Date Resolved Date Urinary retention 02/17/2011 11/30/2016 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 Neoplasm of uncertain behavior of skin 8 03/08/2012 Benign neoplasm of skin of o ther and unspecified parts of face 12/31/2007 11/30/2016 Other chronic dermatitis due to solar radiation 12/31/2007 11/30/2016 Bladder neck obstruction 09/20/2007 012 documented as of this encounter (statuses as of 02/09/2022) [facility] History of Past illness Narrative* Problem Noted Date Resolved Date Urinary retention 02/17/2011 11/30/2016 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 Neoplasm of uncertain behavior of skin 8 03/08/2012 Benign neoplasm of skin of o ther and unspecified parts of face 12/31/2007 11/30/2016 Other chronic dermatitis due to solar radiation 12/31/2007 11/30/2016 Bladder neck obstruction 09/20/2007 012 documented as of this encounter (statuses as of 02/28/2022) [facility] History of Past illness Narrative* Problem Noted Date Resolved Date Urinary retention 02/17/2011 11/30/2016 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 Neoplasm of uncertain behavior of skin 8 03/08/2012 Benign neoplasm of skin of o ther and unspecified parts of face 12/31/2007 11/30/2016 Other chronic dermatitis due to solar radiation 12/31/2007 11/30/2016 Bladder neck obstruction 09/20/2007 012 documented as of this encounter (statuses as of 03/08/2022) [facility] History of Past illness Narrative* Problem Noted Date Resolved Date Urinary retention 02/17/2011 11/30/2016 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 Neoplasm of uncertain behavior of skin 8 03/08/2012 Benign neoplasm of skin of o ther and unspecified parts of face 12/31/2007 11/30/2016 Other chronic dermatitis due to solar radiation 12/31/2007 11/30/2016 Bladder neck obstruction 09/20/2007 012 documented as of this encounter (statuses as of 04/29/2022) [facility] History of Past illness Narrative* Problem Noted Date Resolved Date Urinary retention 02/17/2011 11/30/2016 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 Neoplasm of uncertain behavior of skin 8 03/08/2012 Benign neoplasm of skin of o ther and unspecified parts of face 12/31/2007 11/30/2016 Other chronic dermatitis due to solar radiation 12/31/2007 11/30/2016 Bladder neck obstruction 09/20/2007 012 documented as of this encounter (statuses as of 04/29/2022) [facility] History of Past illness Narrative* Problem Noted Date Resolved Date Urinary retention 02/17/2011 11/30/2016 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 Neoplasm of uncertain behavior of skin 8 03/08/2012 Benign neoplasm of skin of o ther and unspecified parts of face 12/31/2007 11/30/2016 Other chronic dermatitis due to solar radiation 12/31/2007 11/30/2016 Bladder neck obstruction 09/20/2007 012 documented as of this encounter (statuses as of 05/16/2022) [facility] History of Past illness Narrative* Problem Noted Date Resolved Date Urinary retention 02/17/2011 11/30/2016 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 Neoplasm of uncertain behavior of skin 8 03/08/2012 Benign neoplasm of skin of o ther and unspecified parts of face 12/31/2007 11/30/2016 Other chronic dermatitis due to solar radiation 12/31/2007 11/30/2016 Bladder neck obstruction 09/20/2007 012 documented as of this encounter (statuses as of 05/19/2022) [facility] History of Past illness Narrative* Problem Noted Date Resolved Date Urinary retention 02/17/2011 11/30/2016 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 Neoplasm of uncertain behavior of skin 8 03/08/2012 Benign neoplasm of skin of o ther and unspecified parts of face 12/31/2007 11/30/2016 Other chronic dermatitis due to solar radiation 12/31/2007 11/30/2016 Bladder neck obstruction 09/20/2007 012 documented as of this encounter (statuses as of 05/30/2022) [facility] History of Past illness Narrative* Problem Noted Date Resolved Date Urinary retention 02/17/2011 11/30/2016 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 Neoplasm of uncertain behavior of skin 8 03/08/2012 Benign neoplasm of skin of o ther and unspecified parts of face 12/31/2007 11/30/2016 Other chronic dermatitis due to solar radiation 12/31/2007 11/30/2016 Bladder neck obstruction 09/20/2007 012 documented as of this encounter (statuses as of 05/31/2022) [facility] of Past illness Narrative* Problem Noted Date Resolved Date Urinary retention 02/17/2011 11/30/2016 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 Neoplasm of uncertain behavior of skin 8 03/08/2012 Benign neoplasm of skin of o ther and unspecified parts of face 12/31/2007 11/30/2016 Other chronic dermatitis due to solar radiation 12/31/2007 11/30/2016 Bladder neck obstruction 09/20/2007 012 documented as of this encounter (statuses as of 06/01/2022) [facility] History of Past illness Narrative* Problem Noted Date Resolved Date Urinary retention 02/17/2011 11/30/2016 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 Neoplasm of uncertain behavior of skin 8 03/08/2012 Benign neoplasm of skin of o ther and unspecified parts of face 12/31/2007 11/30/2016 Other chronic dermatitis due to solar radiation 12/31/2007 11/30/2016 Bladder neck obstruction 09/20/2007 012 documented as of this encounter (statuses as of 06/15/2022) [facility] of Past illness Narrative* Problem Noted Date Resolved Date Urinary retention 02/17/2011 11/30/2016 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 Neoplasm of uncertain behavior of skin 8 03/08/2012 Benign neoplasm of skin of o ther and unspecified parts of face 12/31/2007 11/30/2016 Other chronic dermatitis due to solar radiation 12/31/2007 11/30/2016 Bladder neck obstruction 09/20/2007 012 documented as of this encounter (statuses as of 06/16/2022) [facility] of Past illness Narrative* Problem Noted Date Resolved Date Urinary retention 02/17/2011 11/30/2016 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 Neoplasm of uncertain behavior of skin 8 03/08/2012 Benign neoplasm of skin of o ther and unspecified parts of face 12/31/2007 11/30/2016 Other chronic dermatitis due to solar radiation 12/31/2007 11/30/2016 Bladder neck obstruction 09/20/2007 012 documented as of this encounter (statuses as of 06/27/2022) [facility] of Past illness Narrative* Problem Noted Date Resolved Date Urinary retention 02/17/2011 11/30/2016 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 Neoplasm of uncertain behavior of skin 8 03/08/2012 Benign neoplasm of skin of o ther and unspecified parts of face 12/31/2007 11/30/2016 Other chronic dermatitis due to solar radiation 12/31/2007 11/30/2016 Bladder neck obstruction 09/20/2007 012 documented as of this encounter (statuses as of 08/12/2022) [facility] History of Past illness Narrative* Problem Noted Date Resolved Date Urinary retention 02/17/2011 11/30/2016 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 Neoplasm of uncertain behavior of skin 8 03/08/2012 Benign neoplasm of skin of o ther and unspecified parts of face 12/31/2007 11/30/2016 Other chronic dermatitis due to solar radiation 12/31/2007 11/30/2016 Bladder neck obstruction 09/20/2007 012 documented as of this encounter (statuses as of 08/15/2022) [facility] of Past illness Narrative* Problem Noted Date Resolved Date Urinary retention 02/17/2011 11/30/2016 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 Neoplasm of uncertain behavior of skin 8 03/08/2012 Benign neoplasm of skin of o ther and unspecified parts of face 12/31/2007 11/30/2016 Other chronic dermatitis due to solar radiation 12/31/2007 11/30/2016 Bladder neck obstruction 09/20/2007 012 documented as of this encounter (statuses as of 08/16/2022) [facility] of Past illness Narrative* Problem Noted Date Resolved Date Urinary retention 02/17/2011 11/30/2016 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 Neoplasm of uncertain behavior of skin 8 03/08/2012 Benign neoplasm of skin of o ther and unspecified parts of face 12/31/2007 11/30/2016 Other chronic dermatitis due to solar radiation 12/31/2007 11/30/2016 Bladder neck obstruction 09/20/2007 012 documented as of this encounter (statuses as of 08/16/2022) [facility] of Past illness Narrative* Problem Noted Date Resolved Date Urinary retention 02/17/2011 11/30/2016 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 Neoplasm of uncertain behavior of skin 8 03/08/2012 Benign neoplasm of skin of o ther and unspecified parts of face 12/31/2007 11/30/2016 Other chronic dermatitis due to solar radiation 12/31/2007 11/30/2016 Bladder neck obstruction 09/20/2007 012 Cauda equina syndrome with neurogenic bladder 08/17/2022 documented as of this encounter (statuses as of 08/17/2022) [facility] Past illness Narrative* Problem Noted Date Resolved Date Urinary retention 02/17/2011 11/30/2016 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 Neoplasm of uncertain behavior of skin 8 03/08/2012 Benign neoplasm of skin of o ther and unspecified parts of face 12/31/2007 11/30/2016 Other chronic dermatitis due to solar radiation 12/31/2007 11/30/2016 Bladder neck obstruction 09/20/2007 012 Cauda equina syndrome with neurogenic bladder 08/17/2022 documented as of this encounter (statuses as of 08/26/2022) [facility] of Past illness Narrative* Problem Noted Date Resolved Date Urinary retention 02/17/2011 11/30/2016 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 Neoplasm of uncertain behavior of skin 8 03/08/2012 Benign neoplasm of skin of o ther and unspecified parts of face 12/31/2007 11/30/2016 Other chronic dermatitis due to solar radiation 12/31/2007 11/30/2016 Bladder neck obstruction 09/20/2007 012 Cauda equina syndrome with neurogenic bladder 08/17/2022 documented as of this encounter (statuses as of 09/26/2022) [facility] History of Past illness Narrative* Problem Noted Date Resolved Date Urinary retention 02/17/2011 11/30/2016 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 Neoplasm of uncertain behavior of skin 8 03/08/2012 Benign neoplasm of skin of o ther and unspecified parts of face 12/31/2007 11/30/2016 Other chronic dermatitis due to solar radiation 12/31/2007 11/30/2016 Bladder neck obstruction 09/20/2007 012 Cauda equina syndrome with neurogenic bladder 08/17/2022 documented as of this encounter (statuses as of 10/07/2022) [facility] History of Past illness Narrative* Problem Noted Date Resolved Date Urinary retention 02/17/2011 11/30/2016 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 Neoplasm of uncertain behavior of skin 8 03/08/2012 Benign neoplasm of skin of o ther and unspecified parts of face 12/31/2007 11/30/2016 Other chronic dermatitis due to solar radiation 12/31/2007 11/30/2016 Bladder neck obstruction 09/20/2007 012 Cauda equina syndrome with neurogenic bladder 08/17/2022 documented as of this encounter (statuses as of 10/11/2022) [facility] History of Past illness Narrative* Problem Noted Date Resolved Date Urinary retention 02/17/2011 11/30/2016 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 Neoplasm of uncertain behavior of skin 8 03/08/2012 Benign neoplasm of skin of o ther and unspecified parts of face 12/31/2007 11/30/2016 Other chronic dermatitis due to solar radiation 12/31/2007 11/30/2016 Bladder neck obstruction 09/20/2007 012 Cauda equina syndrome with neurogenic bladder 08/17/2022 documented as of this encounter (statuses as of 10/26/2022) [facility] of Past illness Narrative* Problem Noted Date Diagnosed Date Resolved Date Urinary retention 02/17/2011 11/30/2016 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 Neoplasm of uncertain behavior of skin 12/31/2007 03/08/2012 Benign neoplasm of skin of o ther and unspecified parts of face 12/31/2007 11/30/2016 Other chronic dermatitis due to solar radiation 12/31/2007 11/30/2016 Bladder neck obstruction 09/20/2007 Cauda equina syndrome with neurogenic bladder 03/19/20 07 08/17/2022 documented as of this encounter (statuses as of 11/14/2022) [facility] History of Past illness Narrative* Problem Noted Date Diagnosed Date Resolved Date Urinary retention 02/17/2011 11/30/2016 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 Neoplasm of uncertain behavior of skin 12/31/2007 03/08/2012 Benign neoplasm of skin of o ther and unspecified parts of face 12/31/2007 11/30/2016 Other chronic dermatitis due to solar radiation 12/31/2007 11/30/2016 Bladder neck obstruction 09/20/2007 Cauda equina syndrome with neurogenic bladder 03/19/20 07 08/17/2022 documented as of this encounter (statuses as of 11/24/2022) [facility] History of Past illness Narrative* Problem Noted Date Diagnosed Date Resolved Date Urinary retention 02/17/2011 11/30/2016 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 Neoplasm of uncertain behavior of skin 12/31/2007 03/08/2012 Benign neoplasm of skin of o ther and unspecified parts of face 12/31/2007 11/30/2016 Other chronic dermatitis due to solar radiation 12/31/2007 11/30/2016 Bladder neck obstruction 09/20/2007 Cauda equina syndrome with neurogenic bladder 03/19/20 07 08/17/2022 documented as of this encounter (statuses as of 12/27/2022) [facility] of Past illness Narrative* Problem Noted Date Diagnosed Date Resolved Date Urinary retention 02/17/2011 11/30/2016 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 Neoplasm of uncertain behavior of skin 12/31/2007 03/08/2012 Benign neoplasm of skin of o ther and unspecified parts of face 12/31/2007 11/30/2016 Other chronic dermatitis due to solar radiation 12/31/2007 11/30/2016 Bladder neck obstruction 09/20/2007 Cauda equina syndrome with neurogenic bladder 03/19/20 07 08/17/2022 documented as of this encounter (statuses as of 01/18/2023) [facility] History of Past illness Narrative* Problem Noted Date Diagnosed Date Resolved Date Urinary retention 02/17/2011 11/30/2016 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 Neoplasm of uncertain behavior of skin 12/31/2007 03/08/2012 Benign neoplasm of skin of o ther and unspecified parts of face 12/31/2007 11/30/2016 Other chronic dermatitis due to solar radiation 12/31/2007 11/30/2016 Bladder neck obstruction 09/20/2007 Cauda equina syndrome with neurogenic bladder 03/19/20 07 08/17/2022 documented as of this encounter (statuses as of 01/31/2023) [facility] History of Past illness Narrative* Problem Noted Date Diagnosed Date Resolved Date Urinary retention 02/17/2011 11/30/2016 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 Neoplasm of uncertain behavior of skin 12/31/2007 03/08/2012 Benign neoplasm of skin of o ther and unspecified parts of face 12/31/2007 11/30/2016 Other chronic dermatitis due to solar radiation 12/31/2007 11/30/2016 Bladder neck obstruction 09/20/2007 Cauda equina syndrome with neurogenic bladder 03/19/20 07 08/17/2022 documented as of this encounter (statuses as of 01/31/2023) [facility] History of Past illness Narrative* Problem Noted Date Diagnosed Date Resolved Date Urinary retention 02/17/2011 11/30/2016 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 Neoplasm of uncertain behavior of skin 12/31/2007 03/08/2012 Benign neoplasm of skin of o ther and unspecified parts of face 12/31/2007 11/30/2016 Other chronic dermatitis due to solar radiation 12/31/2007 11/30/2016 Bladder neck obstruction 09/20/2007 Cauda equina syndrome with neurogenic bladder 03/19/20 07 08/17/2022 documented as of this encounter (statuses as of 02/14/2023) [facility] of Past illness Narrative* Problem Noted Date Diagnosed Date Resolved Date Urinary retention 02/17/2011 11/30/2016 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 Neoplasm of uncertain behavior of skin 12/31/2007 03/08/2012 Benign neoplasm of skin of o ther and unspecified parts of face 12/31/2007 11/30/2016 Other chronic dermatitis due to solar radiation 12/31/2007 11/30/2016 Bladder neck obstruction 09/20/2007 Cauda equina syndrome with neurogenic bladder 03/19/20 07 08/17/2022 documented as of this encounter (statuses as of 02/19/2023) [facility] History of Past illness Narrative* Problem Noted Date Diagnosed Date Resolved Date Urinary retention 02/17/2011 11/30/2016 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 Neoplasm of uncertain behavior of skin 12/31/2007 03/08/2012 Benign neoplasm of skin of o ther and unspecified parts of face 12/31/2007 11/30/2016 Other chronic dermatitis due to solar radiation 12/31/2007 11/30/2016 Bladder neck obstruction 09/20/2007 Cauda equina syndrome with neurogenic bladder 03/19/20 07 08/17/2022 documented as of this encounter (statuses as of 02/26/2023) [facility] History of Past illness Narrative* Problem Noted Date Diagnosed Date Resolved Date Urinary retention 02/17/2011 11/30/2016 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 Neoplasm of uncertain behavior of skin 12/31/2007 03/08/2012 Benign neoplasm of skin of o ther and unspecified parts of face 12/31/2007 11/30/2016 Other chronic dermatitis due to solar radiation 12/31/2007 11/30/2016 Bladder neck obstruction 09/20/2007 Cauda equina syndrome with neurogenic bladder 03/19/20 07 08/17/2022 documented as of this encounter (statuses as of 03/20/2023) [facility] History of Past illness Narrative* Problem Noted Date Diagnosed Date Resolved Date Urinary retention 02/17/2011 11/30/2016 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 Neoplasm of uncertain behavior of skin 12/31/2007 03/08/2012 Benign neoplasm of skin of o ther and unspecified parts of face 12/31/2007 11/30/2016 Other chronic dermatitis due to solar radiation 12/31/2007 11/30/2016 Bladder neck obstruction 09/20/2007 Cauda equina syndrome with neurogenic bladder 03/19/20 07 08/17/2022 documented as of this encounter (statuses as of 06/22/2023) [facility] of Past illness Narrative* Problem Noted Date Diagnosed Date Resolved Date Urinary retention 02/17/2011 11/30/2016 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 Neoplasm of uncertain behavior of skin 12/31/2007 03/08/2012 Benign neoplasm of skin of o ther and unspecified parts of face 12/31/2007 11/30/2016 Other chronic dermatitis due to solar radiation 12/31/2007 11/30/2016 Bladder neck obstruction 09/20/2007 Cauda equina syndrome with neurogenic bladder 03/19/20 07 08/17/2022 documented as of this encounter (statuses as of 07/14/2023) [facility] History of Past illness Narrative* Problem Noted Date Diagnosed Date Resolved Date Urinary retention 02/17/2011 11/30/2016 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 Neoplasm of uncertain behavior of skin 12/31/2007 03/08/2012 Benign neoplasm of skin of o ther and unspecified parts of face 12/31/2007 11/30/2016 Other chronic dermatitis due to solar radiation 12/31/2007 11/30/2016 Bladder neck obstruction 09/20/2007 Cauda equina syndrome with neurogenic bladder 03/19/20 07 08/17/2022 documented as of this encounter (statuses as of 07/20/2023) [facility] Chronic bilateral low back pain with bilateral sciatica [facility] Diagnosis Degeneration of intervertebral disc of lumbosacral region - BWC- Primary Pelvic Fracture NOS - closed - BWC Fracture lumbar vertebra - closed - BWC [facility] Diagnosis Chronic bilateral low back pain with bilateral sciatica [facility] Diagnosis Chronic bilateral low [facility] with bilateral sciatica [facility] Chronic bilateral low back pain with bilateral sciatica [facility] 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 and other lower urinary tract symptoms (LUTS) [facility] Diagnosis Degeneration of intervertebral disc of lumbosacral region - BWC- Primary Pelvic Fracture NOS - closed - BWC Fracture lumbar vertebra - closed - BWC [facility] Diagnosis Chronic bilateral low back pain with bilateral sciatica [facility] Diagnosis Degeneration of intervertebral disc of lumbosacral region - BWC- Primary Pelvic Fracture NOS - closed - BWC Fracture lumbar vertebra - closed - [facility] Diagnosis Elevated blood pressure reading- Primary Elevated blood pressure reading without diagnosis of hypertension Dyslipidemia Other and unspecified hyperlipidemia Tachycardia Tachycardia, unspecified LVH (left ventricular hypertrophy) Cardiomegaly ASHFORD (dyspnea on exertion) Other dyspnea and respiratory abnormality [facility] Diagnosis LVH (left ventricular hypertrophy) Cardiomegaly ASHFORD (dyspnea on exertion) Other dyspnea and respiratory abnormality [facility] Diagnosis Medicare annual wellness visit, subsequent- Primary Routine general medical examination at a health care facility Primary hypertension Unspecified essential hypertension Chronic bilateral low back pain with bilateral sciatica [facility] Diagnosis Chronic bilateral low back pain with bilateral sciatica [facility]* Diagnosis Degeneration of intervertebral disc of lumbosacral region - BWC- Primary Pelvic Fracture NOS - closed - BWC Fracture lumbar vertebra - closed - BWC [facility] Diagnosis Raised intraocular pressure of right eye- Primary Primary hypertension Unspecified essential hypertension Impaired fasting glucose Dyslipidemia Other and unspecified hyperlipidemia [facility] Diagnosis Chronic bilateral low back pain with bilateral sciatica [facility] Diagnosis Chronic bilateral low back pain with bilateral sciatica [facility]* Diagnosis Degeneration of intervertebral disc of lumbosacral region - BWC- Primary Pelvic Fracture NOS - closed - BWC Fracture lumbar vertebra - closed - BWC [facility] 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 and other lower urinary tract symptoms (LUTS) [facility] Diagnosis Chronic bilateral low back pain with bilateral sciatica [facility] Diagnosis Chronic bilateral low back pain with bilateral sciatica [facility]* Diagnosis Chronic cough- Primary Cough Fracture lumbar vertebra - closed - BWC Primary hypertension Unspecified essential hypertension Dyslipidemia Other and unspecified hyperlipidemia Age related osteoporosis, unspecified pathological fracture presence Nonrheumatic aortic valve insufficiency Aortic valve disorders [facility]* Diagnosis Age related osteoporosis, unspecified pathological fracture presence- Primary [facility] Diagnosis Fracture lumbar vertebra - closed - BWC Age related osteoporosis, unspecified pathological fracture presence [facility] Diagnosis Degeneration of intervertebral disc of lumbosacral region - BWC- Primary Pelvic Fracture NOS - closed - BWC Fracture lumbar vertebra - closed - BWC [facility] Diagnosis Dyslipidemia Other and unspecified hyperlipidemia [facility] Diagnosis Medicare annual wellness visit, subsequent- Primary Routine general medical examination at a [facility] facility Primary hypertension Unspecified essential hypertension Hyperlipidemia, unspecified hyperlipidemia type Impaired fasting glucose [facility] Diagnosis Degeneration of intervertebral disc of lumbosacral region - BWC- Primary Pelvic Fracture NOS - closed - BWC Fracture lumbar vertebra - closed - BWC [facility] Diagnosis Degeneration of intervertebral disc of lumbosacral region - BWC [facility] Diagnosis Primary hypertension- Primary Unspecified essential hypertension [facility] Diagnosis Primary hypertension Unspecified essential hypertension [facility] Diagnosis Degeneration of intervertebral disc of lumbosacral region - BWC- Primary Pelvic Fracture NOS - closed - BWC Fracture lumbar vertebra - closed - [facility] Primary hypertension Unspecified essential hypertension [facility] Diagnosis Primary hypertension- Primary Unspecified essential hypertension [facility] Diagnosis Sleep apnea, unspecified type- Primary Primary hypertension Unspecified essential hypertension Gastroesophageal reflux disease, unspecified whether esophagitis present BPH with obstruction/lower urinary tract symptoms Hypertrophy of prostate with urinary obstruction and other lower urinary tract symptoms (LUTS) [facility] Diagnosis LVH (left ventricular hypertrophy) Cardiomegaly ASHFORD (dyspnea on exertion) Other dyspnea and respiratory abnormality [facility] 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 and other lower urinary tract symptoms (LUTS) [facility] Diagnosis Degeneration of intervertebral disc of lumbosacral region with discogenic back pain- Primary Pelvic Fracture NOS - closed - BWC Fracture lumbar vertebra - closed - BWC documented in this encounter [facility] for referral (narrative)* Outpatient Procedure (Routine) - Authorized Specialty Diagnoses / Procedures Referred By Sandi stark Referred To [facility] [place] Diagnoses LVH (left ventricular hypertrophy) ASHFORD (dyspnea on exertion) Procedures STRESS ECHO DOBUTAMINE ECHO TTHRC R-T 2D W/WO M-MODE COMPLETE REST&ST Nelson Rea MD [address] [place] [address] [facility] [place] [address] [place] [address] Referral ID Status Reason Start Date Expiration Date Visits Requested Visits Authorized [id number] Authorized Auto-Generat ed Referral 05/19/2022 05/19/2023 1 1 * Outpatient Procedure (Routine) - Closed Specialty Diagnoses / Procedures Referred By Sandi stark Referred To Contact [facility] Diagnoses Elevated blood pressure reading Procedures ECG COMPLETE ECG ROUTINE ECG W/LEAST 12 LDS W/I&R Nelson Rea MD [address] [place] [address] [facility] [place] [address] Referral ID Status Reason Start Date Expiration Date V isits Requested Visits Authorized [id number] Closed Auto-Generate d Referral 05/19/2022 05/19/2023 1 1 [facility] for referral (narrative)* Outpatient Procedure (Routine) - Closed Specialty Diagnoses / Procedures Referred By Sandi stark Referred To Contact [facility] [place] Diagnoses LVH (left ventricular hypertrophy) ASH[place]ORD (dyspnea on exertion) Procedures STRESS ECHO DOBUTAMINE ECHO TTHRC R-T 2D W/WO M-MODE COMPLETE REST&ST Nelson Rea MD [address] [place] [address] [facility] [place] [address] Referral ID Status Reason Start Date Expiration Date V isits Requested Visits Authorized [id number] Closed Auto-Generate d Referral 05/19/2022 05/19/2023 1 1 [facility] for referral (narrative)* Diagnostic Procedure Only (Routine) - Authorized Specialty Diagnoses / Procedures Referred By Sandi stark Referred To Contact [facility] [place] Diagnoses Sleep apnea, unspecified type Procedures HOME SLEEP APNEA TEST (HSAT) SLEEP STD AIRFLOW HRT RATE&O2 SAT EFFORT UNATT Vaishali Novak, ELECTROENCEPHALOGRAPH TECHNICIAN.GENERAL [employer]ARM HAND [address] [place] [address] [address] Referral ID Status Reason Start Date Expiration Date Visits Requested Visits Authorized [id number] Authorized Auto-Generat ed Referral 01/16/2024 01/15/2025 1 1 Electronically signed by Vaishali Novak ELECTROENCEPHALOGRAPH TECHNICIAN.GENERAL FARM HAND at 01/16/2024 10:57 AM EDT [facility] for visit Narrative* Outpatient Procedure (Routine) - Closed Specialty Diagnoses / Procedures Referred By Sandi stark Referred To Contact [facility] [place] Diagnoses LVH (left ventricular hypertrophy) [place] (dyspnea on exertion) Procedures STRESS ECHO DOBUTAMINE ECHO TTHRC R-T 2D W/WO M-MODE COMPLETE REST&ST Nelson Rea MD [address] [place] [address] [facility] [address] [address] Referral ID Status Reason Start Date Expiration Date V isits Requested Visits Authorized [id number] Closed Auto-Generate d Referral 05/19/2022 05/19/2023 1 1 [facility] Summary Purpose Family History No Family History Records FoundNo Family History Records FoundNo Family History Records FoundNo Family History Records Found Advance Directives No Advanced Directives Records FoundDocuments on File Type Date Recorded Patient Media Planner Expl anation Advance Directive(s) 05/04/2018 5:48 AM Advance Directive(s) 05/04/2018 5:54 AM Advance Directive(s) 04/02/2018 10:12 AM Documents on File Type Date Recorded Patient Media Planner Expl anation Advance Directive(s) 05/04/2018 5:54 AM Documents on File Type Date Recorded Patient Media Planner Expl anation Advance Directive(s) 05/04/2018 5:54 AM Additional Source Comments (unrecognized sect ion and content) No Status Records FoundNo Status Records FoundNo Status Records FoundNo Status Records Found INFORMATION SOURCE (unrecogn ized section and content) DATE CREATED AUTHOR 04/23/2020 [facility] [place] DATE CREATED AUTHOR AUTHOR'S ORGANIZ ATION 06/02/2022 [facility] DATE CREATED AUTHOR AUTHOR'S ORGANIZ ATION 01/31/2024 [facility] DATE CREATED AUTHOR AUTHOR'S ORGANIZ ATION 02/14/2024 [facility] Source Comments (unrecognize d section and content) In the event this informatio n is protected by the Federal Confidentiality of Alcohol and Drug Abuse Patient Records regulations: The Federal rules restrict any use of the information to criminally investigate or prosecute any alcohol or drug abuse patient.[facility] the event this information is protected by the Federal Confidentiality of Alcohol and Drug Abuse Patient Records regulations: The Federal rules restrict any use of the information to criminally investigate or prosecute any alcohol or drug abuse patient.[facility] the event this information is protected by the Federal Confidentiality of Alcohol and Drug Abuse Patient Records regulations: The Federal rules restrict any use of the information to criminally investigate or prosecute any alcohol or drug abuse patient.[facility] the event this information is protected by the Federal Confidentiality of Alcohol and Drug Abuse Patient Records regulations: The Federal rules restrict any use of the information to criminally investigate or prosecute any alcohol or drug abuse patient.[facility] the event this information is protected by the Federal Confidentiality of Alcohol and Drug Abuse Patient Records regulations: The Federal rules restrict any use of the information to criminally investigate or prosecute any alcohol or drug abuse patient.[facility] the event this information is protected by the Federal Confidentiality of Alcohol and Drug Abuse Patient Records regulations: The Federal rules restrict any use of the information to criminally investigate or prosecute any alcohol or drug abuse patient.[facility] the event this information is protected by the Federal Confidentiality of Alcohol and Drug Abuse Patient Records regulations: The Federal rules restrict any use of the information to criminally investigate or prosecute any alcohol or drug abuse patient.[facility] the event this information is protected by the Federal Confidentiality of Alcohol and Drug Abuse Patient Records regulations: The Federal rules restrict any use of the information to criminally investigate or prosecute any alcohol or drug abuse patient.[facility] HospitalIn the event this information is protected by the Federal Confidentiality of Alcohol and Drug Abuse Patient Records regulations: The Federal rules restrict any use of the information to criminally investigate or prosecute any alcohol or drug abuse patient.[facility] HospitalIn the event this information is protected by the Federal Confidentiality of Alcohol and Drug Abuse Patient Records regulations: The Federal rules restrict any use of the information to criminally investigate or prosecute any alcohol or drug abuse patient.[facility] HospitalIn the event this information is protected by the Federal Confidentiality of Alcohol and Drug Abuse Patient Records regulations: The Federal rules restrict any use of the information to criminally investigate or prosecute any alcohol or drug abuse patient.[facility] HospitalIn the event this information is protected by the Federal Confidentiality of Alcohol and Drug Abuse Patient Records regulations: The Federal rules restrict any use of the information to criminally investigate or prosecute any alcohol or drug abuse patient.[facility] HospitalIn the event this information is protected by the Federal Confidentiality of Alcohol and Drug Abuse Patient Records regulations: The Federal rules restrict any use of the information to criminally investigate or prosecute any alcohol or drug abuse patient.[facility] HospitalIn the event this information is protected by the Federal Confidentiality of Alcohol and Drug Abuse Patient Records regulations: The Federal rules restrict any use of the information to criminally investigate or prosecute any alcohol or drug abuse patient.[facility] HospitalIn the event this information is protected by the Federal Confidentiality of Alcohol and Drug Abuse Patient Records regulations: The Federal rules restrict any use of the information to criminally investigate or prosecute any alcohol or drug abuse patient.[facility] HospitalIn the event this information is protected by the Federal Confidentiality of Alcohol and Drug Abuse Patient Records regulations: The Federal rules restrict any use of the information to criminally investigate or prosecute any alcohol or drug abuse patient.[facility] HospitalIn the event this information is protected by the Federal Confidentiality of Alcohol and Drug Abuse Patient Records regulations: The Federal rules restrict any use of the information to criminally investigate or prosecute any alcohol or drug abuse patient.[facility] HospitalIn the event this information is protected by the Federal Confidentiality of Alcohol and Drug Abuse Patient Records regulations: The Federal rules restrict any use of the information to criminally investigate or prosecute any alcohol or drug abuse patient.[facility] HospitalIn the event this information is protected by the Federal Confidentiality of Alcohol and Drug Abuse Patient Records regulations: The Federal rules restrict any use of the information to criminally investigate or prosecute any alcohol or drug abuse patient.[facility] HospitalIn the event this information is protected by the Federal Confidentiality of Alcohol and Drug Abuse Patient Records regulations: The Federal rules restrict any use of the information to criminally investigate or prosecute any alcohol or drug abuse patient.[facility] HospitalIn the event this information is protected by the Federal Confidentiality of Alcohol and Drug Abuse Patient Records regulations: The Federal rules restrict any use of the information to criminally investigate or prosecute any alcohol or drug abuse patient.[facility] HospitalIn the event this information is protected by the Federal Confidentiality of Alcohol and Drug Abuse Patient Records regulations: The Federal rules restrict any use of the information to criminally investigate or prosecute any alcohol or drug abuse patient.[facility] HospitalIn the event this information is protected by the Federal Confidentiality of Alcohol and Drug Abuse Patient Records regulations: The Federal rules restrict any use of the information to criminally investigate or prosecute any alcohol or drug abuse patient.[facility] HospitalIn the event this information is protected by the Federal Confidentiality of Alcohol and Drug Abuse Patient Records regulations: The Federal rules restrict any use of the information to criminally investigate or prosecute any alcohol or drug abuse patient.[facility] HospitalIn the event this information is protected by the Federal Confidentiality of Alcohol and Drug Abuse Patient Records regulations: The Federal rules restrict any use of the information to criminally investigate or prosecute any alcohol or drug abuse patient.[facility] HospitalIn the event this information is protected by the Federal Confidentiality of Alcohol and Drug Abuse Patient Records regulations: The Federal rules restrict any use of the information to criminally investigate or prosecute any alcohol or drug abuse patient.[facility] HospitalIn the event this information is protected by the Federal Confidentiality of Alcohol and Drug Abuse Patient Records regulations: The Federal rules restrict any use of the information to criminally investigate or prosecute any alcohol or drug abuse patient.[facility] HospitalIn the event this information is protected by the Federal Confidentiality of Alcohol and Drug Abuse Patient Records regulations: The Federal rules restrict any use of the information to criminally investigate or prosecute any alcohol or drug abuse patient.[facility] HospitalIn the event this information is protected by the Federal Confidentiality of Alcohol and Drug Abuse Patient Records regulations: The Federal rules restrict any use of the information to criminally investigate or prosecute any alcohol or drug abuse patient.[facility] HospitalIn the event this information is protected by the Federal Confidentiality of Alcohol and Drug Abuse Patient Records regulations: The Federal rules restrict any use of the information to criminally investigate or prosecute any alcohol or drug abuse patient.[facility] HospitalIn the event this information is protected by the Federal Confidentiality of Alcohol and Drug Abuse Patient Records regulations: The Federal rules restrict any use of the information to criminally investigate or prosecute any alcohol or drug abuse patient.[facility] HospitalIn the event this information is protected by the Federal Confidentiality of Alcohol and Drug Abuse Patient Records regulations: The Federal rules restrict any use of the information to criminally investigate or prosecute any alcohol or drug abuse patient.[facility] HospitalIn the event this information is protected by the Federal Confidentiality of Alcohol and Drug Abuse Patient Records regulations: The Federal rules restrict any use of the information to criminally investigate or prosecute any alcohol or drug abuse patient.[facility] HospitalIn the event this information is protected by the Federal Confidentiality of Alcohol and Drug Abuse Patient Records regulations: The Federal rules restrict any use of the information to criminally investigate or prosecute any alcohol or drug abuse patient.[facility] HospitalIn the event this information is protected by the Federal Confidentiality of Alcohol and Drug Abuse Patient Records regulations: The Federal rules restrict any use of the information to criminally investigate or prosecute any alcohol or drug abuse patient.[facility] HospitalIn the event this information is protected by the Federal Confidentiality of Alcohol and Drug Abuse Patient Records regulations: The Federal rules restrict any use of the information to criminally investigate or prosecute any alcohol or drug abuse patient.[facility] HospitalIn the event this information is protected by the Federal Confidentiality of Alcohol and Drug Abuse Patient Records regulations: The Federal rules restrict any use of the information to criminally investigate or prosecute any alcohol or drug abuse patient.[facility] HospitalIn the event this information is protected by the Federal Confidentiality of Alcohol and Drug Abuse Patient Records regulations: The Federal rules restrict any use of the information to criminally investigate or prosecute any alcohol or drug abuse patient.[facility] HospitalIn the event this information is protected by the Federal Confidentiality of Alcohol and Drug Abuse Patient Records regulations: The Federal rules restrict any use of the information to criminally investigate or prosecute any alcohol or drug abuse patient.[facility] HospitalIn the event this information is protected by the Federal Confidentiality of Alcohol and Drug Abuse Patient Records regulations: The Federal rules restrict any use of the information to criminally investigate or prosecute any alcohol or drug abuse patient.[facility] HospitalIn the event this information is protected by the Federal Confidentiality of Alcohol and Drug Abuse Patient Records regulations: The Federal rules restrict any use of the information to criminally investigate or prosecute any alcohol or drug abuse patient.[facility] HospitalIn the event this information is protected by the Federal Confidentiality of Alcohol and Drug Abuse Patient Records regulations: The Federal rules restrict any use of the information to criminally investigate or prosecute any alcohol or drug abuse patient.[facility] HospitalIn the event this information is protected by the Federal Confidentiality of Alcohol and Drug Abuse Patient Records regulations: The Federal rules restrict any use of the information to criminally investigate or prosecute any alcohol or drug abuse patient.[facility] HospitalIn the event this information is protected by the Federal Confidentiality of Alcohol and Drug Abuse Patient Records regulations: The Federal rules restrict any use of the information to criminally investigate or prosecute any alcohol or drug abuse patient.[facility] HospitalIn the event this information is protected by the Federal Confidentiality of Alcohol and Drug Abuse Patient Records regulations: The Federal rules restrict any use of the information to criminally investigate or prosecute any alcohol or drug abuse patient.[facility] HospitalIn the event this information is protected by the Federal Confidentiality of Alcohol and Drug Abuse Patient Records regulations: The Federal rules restrict any use of the information to criminally investigate or prosecute any alcohol or drug abuse patient.[facility] HospitalIn the event this information is protected by the Federal Confidentiality of Alcohol and Drug Abuse Patient Records regulations: The Federal rules restrict any use of the information to criminally investigate or prosecute any alcohol or drug abuse patient.[facility] HospitalIn the event this information is protected by the Federal Confidentiality of Alcohol and Drug Abuse Patient Records regulations: The Federal rules restrict any use of the information to criminally investigate or prosecute any alcohol or drug abuse patient.[facility] HospitalIn the event this information is protected by the Federal Confidentiality of Alcohol and Drug Abuse Patient Records regulations: The Federal rules restrict any use of the information to criminally investigate or prosecute any alcohol or drug abuse patient.[facility] HospitalIn the event this information is protected by the Federal Confidentiality of Alcohol and Drug Abuse Patient Records regulations: The Federal rules restrict any use of the information to criminally investigate or prosecute any alcohol or drug abuse patient.[facility] HospitalIn the event this information is protected by the Federal Confidentiality of Alcohol and Drug Abuse Patient Records regulations: The Federal rules restrict any use of the information to criminally investigate or prosecute any alcohol or drug abuse patient.[facility] HospitalIn the event this information is protected by the Federal Confidentiality of Alcohol and Drug Abuse Patient Records regulations: The Federal rules restrict any use of the information to criminally investigate or prosecute any alcohol or drug abuse patient.[facility] HospitalIn the event this information is protected by the Federal Confidentiality of Alcohol and Drug Abuse Patient Records regulations: The Federal rules restrict any use of the information to criminally investigate or prosecute any alcohol or drug abuse patient.[facility] HospitalIn the event this information is protected by the Federal Confidentiality of Alcohol and Drug Abuse Patient Records regulations: The Federal rules restrict any use of the information to criminally investigate or prosecute any alcohol or drug abuse patient.[facility] HospitalIn the event this information is protected by the Federal Confidentiality of Alcohol and Drug Abuse Patient Records regulations: The Federal rules restrict any use of the information to criminally investigate or prosecute any alcohol or drug abuse patient.[facility] HospitalIn the event this information is protected by the Federal Confidentiality of Alcohol and Drug Abuse Patient Records regulations: The Federal rules restrict any use of the information to criminally investigate or prosecute any alcohol or drug abuse patient.[facility] HospitalIn the event this information is protected by the Federal Confidentiality of Alcohol and Drug Abuse Patient Records regulations: The Federal rules restrict any use of the information to criminally investigate or prosecute any alcohol or drug abuse patient.[facility] HospitalIn the event this information is protected by the Federal Confidentiality of Alcohol and Drug Abuse Patient Records regulations: The Federal rules restrict any use of the information to criminally investigate or prosecute any alcohol or drug abuse patient.[facility] HospitalIn the event this information is protected by the Federal Confidentiality of Alcohol and Drug Abuse Patient Records regulations: The Federal rules restrict any use of the information to criminally investigate or prosecute any alcohol or drug abuse patient.[facility] HospitalIn the event this information is protected by the Federal Confidentiality of Alcohol and Drug Abuse Patient Records regulations: The Federal rules restrict any use of the information to criminally investigate or prosecute any alcohol or drug abuse patient.[facility] HospitalIn the event this information is protected by the Federal Confidentiality of Alcohol and Drug Abuse Patient Records regulations: The Federal rules restrict any use of the information to criminally investigate or prosecute any alcohol or drug abuse patient.[facility] HospitalIn the event this information is protected by the Federal Confidentiality of Alcohol and Drug Abuse Patient Records regulations: The Federal rules restrict any use of the information to criminally investigate or prosecute any alcohol or drug abuse patient.[facility] Care Teams (unrecognized sec tion and content) 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 Start Date End Date Nelson Rea MD [address] [place] [address] PCP - General Internal Medicine 03/07/12 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 Start Date End Date Nelson Rea MD [address] [place] [address] PCP - General Internal Medicine 03/07/12 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 Start Date End Date Nelson Rea MD [address] [place] [address] PCP - General Internal Medicine 03/07/12 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 Start Date End Date Nelson Rea MD [address] [place] [address] PCP - General Internal Medicine 03/07/12 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 Start Date End Date Nelson Rea MD [address] [place] [place] [address] PCP - General Internal Medicine 03/07/12 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 Start Date End Date Nelson Rea MD [address] [place] [place] [address] PCP - General Internal Medicine 03/07/12 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 Start Date End Date Nelson Rea MD [address] [place] [address] PCP - General Internal Medicine 03/07/12 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 Start Date End Date Nelson Rea MD [address] [place] [address] PCP - General Internal Medicine 03/07/12 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 Start Date End Date Nelson Rea MD [address] [place] [address] PCP - General Internal Medicine 03/07/12 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 Start Date End Date Nelson Rea MD [address] [place] [address] PCP - General Internal Medicine 03/07/12 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 Start Date End Date Nelson Rea MD [address] [place] [place] [address] PCP - General Internal Medicine 03/07/12 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 Start Date End Date Nelson Rea MD [address] [place] [place] [address] PCP - General Internal Medicine 03/07/12 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 Start Date End Date Nelson Rea MD [address] [place] [address] PCP - General Internal Medicine 03/07/12 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 Start Date End Date Nelson Rea MD [address] [place] [address] PCP - General Internal Medicine 03/07/12 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 Start Date End Date Nelson Rea MD [address] [place] [address] PCP - General Internal Medicine 03/07/12 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 Start Date End Date Nelson Rea MD [address] [place] [address] PCP - General Internal Medicine 03/07/12 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 Start Date End Date Nelson Rea MD [address] [place] [address] PCP - General Internal Medicine 03/07/12 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 Start Date End Date Nelson Rea MD [address] [place] [address] PCP - General Internal Medicine 03/07/12 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 Start Date End Date Nelson Rea MD [address] [place] [address] PCP - General Internal Medicine 03/07/12 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 Start Date End Date Nelson Rea MD [address] [place] [address] PCP - General Internal Medicine 03/07/12 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 Start Date End Date Nelson Rea MD [address] [place] [address] PCP - General Internal Medicine 03/07/12 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 Start Date End Date Nelson Rea MD [address] [place] [place] [address] PCP - General Internal Medicine 03/07/12 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 Start Date End Date Nelson Rea MD [address] [place] [address] PCP - General Internal Medicine 03/07/12 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 Start Date End Date Nelson Rea MD [address] [place] [address] PCP - General Internal Medicine 03/07/12 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 Start Date End Date Nelson Rea MD [address] [place] [address] PCP - General Internal Medicine 03/07/12 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 Start Date End Date Nelson Rea MD [address] [place] [address] PCP - General Internal Medicine 03/07/12 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 Start Date End Date Nelson Rea MD [address] [place] [address] PCP - General Internal Medicine 03/07/12 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 Start Date End Date Nelson Rea MD [address] [place] [address] PCP - General Internal Medicine 03/07/12 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 Start Date End Date Nelson Rea MD [address] [place] [address] PCP - General Internal Medicine 03/07/12 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 Start Date End Date Nelson Rea MD [address] [place] [address] PCP - General Internal Medicine 03/07/12 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 Start Date End Date Nelson Rea MD [address] [place] [address] PCP - General Internal Medicine 03/07/12 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 Start Date End Date Nelson Rea MD [address] [facility] [address] PCP - General Internal Medicine 03/07/12 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 Start Date End Date Nelson Rea MD [address] [facility] [address] PCP - General Internal Medicine 03/07/12 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 Start Date End Date Nelson Rea MD [address] [place] [address] PCP - General Internal Medicine 03/07/12 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 Start Date End Date Nelson Rea MD [address] [place] [address] PCP - General Internal Medicine 03/07/12 Reason for Visit (unrecogniz ed section and content) Reason Comments Back Pain Specialty Diagnoses / Procedures Referred By Contilene t Referred To Contact PAIN MANAGEMENT Diagnoses F32.9 M62.50 S32.592A S32.9XXA S27.329A S37.012A N31.4 S32.020A S32.010A N39.0 D73.89 Procedures REFERRAL TO [facility]SEL[facility] Lupe Fortune PA-C [address] [place] [address] [facility] [address] [place] [address] Referral ID Status Reason Start Date Expiration Date Visits Re quested Visits Authorized [id number] Closed 10/23/2023 10/23/2023 1 1 Reason Onset Date Comments Refill Request 11/04/2021 Specialty Diagnoses / Procedures Referred By Contac t Referred To Contact Pain Management / PAIN MANAGEMENT Diagnoses f/u-[facility] Procedures EST PATIENT Nelson Rea MD [address] [place] [address] Lupe Fortune PAKojo [address] [place] [address] Referral ID Status Reason Start Date Expiration Date Visits Requested Visits Authorized [id number] Pending Review Financial Clearance Required - Self Pay Clearance Not Met -Financial Clearance Bypassed 11/09/2021 02/07/2022 1 1 Reason Comments Refill Request Reason Onset Date Comments Refill Request 01/04/2022 Reason Comments Follow Up Reason Comments Back Pain [facility] Specialty Diagnoses / Procedures Referred By Contac t Referred To Contact Pain Management / PAIN MANAGEMENT Diagnoses FOLLOW UP [facility] Procedures REFERRAL TO [facility]SEL[facility] EST PATIENT Nelson Rea MD [address] [place] [address] Lupe Fortune PA-C [address] [place] [address] Referral ID Status Reason Start Date Expiration Date Visits Requested Visits Authorized [id number] Pending Review Clearance Not Met -Financial Clearance Bypassed 04/10/2022 1 1 Reason Onset Date Comments Refill Request 03/08/2022 Reason Onset Date Comments Opened In Error 03/29/2022 Reason Onset Date Comments Opened In Error 04/28/2022 Referral ID Status Reason Start Date Expiration Date Visits Re quested Visits Authorized [id number] Closed 05/16/2022 08/12/2022 1 1 Reason Comments Blood Pressure Reason Comments Reminder Call Reason Comments Medicare Wellness Exam Reason Comments Med Change Request Reason Onset Date Comments Refill Request 08/11/2022 Reason Onset Date Comments Refill Request 08/15/2022 Reason Comments Back Pain [facility] Specialty Diagnoses / Procedures Referred By Contact Referred To Contact Anesthesiology / PAIN MANAGEMENT Diagnoses FOLLOW UP [facility] Procedures REFERRAL TO [facility]SEL[facility] EST PATIENT Nelson Rea MD [address] [place] [address] Roberto Carlos Godwin MD [address] [place] [address] Referral ID Status Reason Start Date Expiration Date Visits Requested Visits Authorized [id number] Pending Review Patient Cleared - Admin/Chair man/Directo r advise to proceed 08/15/2022 10/14/2022 1 1 Reason Comments F/U 3 Month Reason Onset Date Comments Refill Request 10/06/2022 Reason Onset Date Comments Refill Request 10/10/2022 Specialty Diagnoses / Procedures Referred By Contac t Referred To Contact Pain Management / PAIN MANAGEMENT Diagnoses FOLLOW UP Procedures EST PATIENT Lupe Fortune PA-C [address] [place] [address] Lupe Fortune PA-C [address] [place] [address] Referral ID Status Reason Start Date Expiration Date Visits Requested Visits Authorized [id number] Pending Review Patient Cleared - Admin/Chair man/Directo r advise to proceed or did not respond 11/14/2022 02/12/2023 1 1 Reason Comments Follow Up Benign Prostatic Hypertrophy Reason Onset Date Comments Refill Request 01/30/2023 Reason Onset Date Comments Refill Request 01/26/2023 Reason Comments F/U 6 months Specialty Diagnoses / Procedures Referred By Contac t Referred To Contact Pain Management / PAIN MANAGEMENT Diagnoses FOLLOW UP 4 MOS Procedures EST PATIENT Lupe Fortune PA-C [address] [place] [address] Lupe Fortune PA-C [address] [facility] [place] [address] Referral ID Status Reason Start Date Expiration Date Visits Re quested Visits Authorized [id number] Closed 03/20/2023 03/20/2023 1 1 Reason Onset Date Comments Refill Request 06/19/2023 Specialty Diagnoses / Procedures [facility] Management / PAIN MANAGEMENT Diagnoses FOLLOW UP [facility] Procedures EST PATIENT Lupe Fortune PA-C [address] [place] [address] Lupe Fortune PA-C [address] [place] [address] Referral ID Status Reason Start Date Expiration Date Visits Re quested Visits Authorized [id number] Closed 07/19/2023 07/19/2023 1 1 Reason Onset Date Comments Refill Request 09/08/2023 Reason Comments Nurse visit - bp check Reason Comments Blood Pressure Check Reason Onset Date Comments Refill Request 10/31/2023 Reason Comments nurse visit - bp check Reason Comments BP Check Reason Onset Date Comments Refill Request 12/27/2023 Reason Comments F/U 6 months Specialty Diagnoses / Procedures Referred By Contac t Referred To Contact PAIN MANAGEMENT Diagnoses Fracture of unspecified parts of lumbosacral spine and pelvis, initial encounter for closed fracture S32.9XXA, S32.020A Procedures REFERRAL TO [facility] Lupe Fortune PA-C [address] [place] [address] [facility] [id number] [place] [address] Referral ID Status Reason Start Date Expiration Date Visits Re quested Visits Authorized [id number] Closed 01/30/2024 01/30/2024 1 1 FOR RECORDS PERTAINING TO PATIENTS WHO ARE OR HAVE BEEN ENROLLED IN A CHEMICAL DEPENDENCY/SUBSTANCEABUSE PROGRAM, SOME INFORMATION MAY BE OMITTED. This clinical summary was aggregated from multiple sources. Caution should be exercised in using it in the provision of clinical care. This summary normalizes information from multiple sources, and as a consequence, information in this document may materially change the coding, format and clinical context of patient data. In addition, data may be omitted in some cases. CLINICAL DECISIONS SHOULD BE BASED ON THE PRIMARY CLINICAL RECORDS. [facility] [employer] [facility]. provides no warranty or guarantee of the accuracy or completeness of information in this document.
== END | disposition home or self-care (01) ==
LOC: SL 19:50
PROVIDERS: PCP Internal Medicine; Referring Provider Nurse Practitioner; Visit Provider Nurse Practitioner
DX: G47.33 Obstructive sleep apnea (adult) (pediatric) (principal)
CPT/HCPCS: 95810